=== PATIENT | male | born 1945 | race Hispanic/Latino ===

== ENCOUNTER 2020-04-27 21:28 | Inpatient (IN) | payer OTHER ==
[2020-04-27 22:54] LABS: Absolute Lymphocytes (CBC) 1.9 K/uL (0.7-4.9); Basophils % 1.1 % (0-1.3); MPV 9.4 fL (7.6-11.3); RBC Red Blood Cell Count 3.47 M/uL (4.33-5.43)
[2020-04-27 23:17] LABS: ALT/SGPT 15 U/L (12-78); AST/SGOT 30 U/L (15-37); Albumin 2.5 g/dL (3.4-5.0); Alkaline Phosphatase 67 U/L (45-117); BUN Blood Urea Nitrogen 32 mg/dL (7-18); Bicarbonate 19 mmol/L (21-32); Bilirubin Direct < 0.1 mg/dL (0-0.2); Bilirubin Total 0.5 mg/dL (0.2-1.0); Glucose Level 200 mg/dL (74-106); Lipase 181 U/L (73-393); Potassium 4.2 mmol/L (3.5-5.1); Protein, Total 6.5 g/dL (6.4-8.2); Sodium Level 137 mmol/L (136-145); Troponin (Emerg Dept Use Only) 0.24 ng/mL (0.0-0.045)
[2020-04-27] MEDS ORDERED: MAGNES/ALUMIN/SIMET 30ML UCUP ONE (23:55)
[2020-04-27] MEDS ORDERED: LIDOCAINE VISCOUS 2% SOLN 15 ML UDC ONE (23:55)
[2020-04-28] MEDS ORDERED: METOPROLOL TAR 50 MG TAB ONE (00:32)
--- NOTE | 2020-04-28 00:40 | EDPHYS ---
Physician Documentation [facility] Name: Roscoe Santana Age: 74 yrs Sex: Male : 1945 Arrival Date: 04/27/2020 Time: 21:36 Bed 16 Private MD: ED Physician Dinesh Goddard HPI: 04/27 22:32 This 74 yrs old Male presents to ER via Ambulatory with complaints of rn Abdominal Pain. 22:32 The patient presents with abdominal pain in the epigastric area. Onset: The rn symptoms/episode began/occurred today. The symptoms radiate to the left arm. Associated signs and symptoms: Pertinent negatives: nausea and vomiting, blood in stools, chest pain, constipation, diarrhea, dysuria, fever, hematuria, shortness of breath, vomiting, vomiting blood. The symptoms are described as dull. Modifying factors: The symptoms are alleviated by pepto bismol. the symptoms are aggravated by nothing. Severity of pain: At its worst the pain was mild in the emergency department the pain has improved. The patient has not experienced similar symptoms in the past. The patient has not recently seen a physician. Reports epigastric abd pain, assoc with increased burping, feels like gas, no fever/vomiting/chest pain/sob/diarrhea. Took pepto bismol with improvement. Feels bloated. . 04/28 00:27 The symptoms radiate to. rn Historical: - Allergies: 04/27 21:56 No Known Allergies; ca1 - PMHx: 21:53 Hypertension; ca1 - Immunization history:: Pneumococcal vaccine is not up to date, Flu vaccine is not up to date. - Social history:: Smoking status: Patient denies any tobacco usage or history of. - Family history:: not pertinent. - Hospitalizations: : No recent hospitalization is reported. ROS: 22:32 Constitutional: Negative for fever, chills, and weight loss, Eyes: Negative for injury, rn pain, redness, and discharge, Neck: Negative for injury, pain, and swelling, Cardiovascular: Negative for chest pain, palpitations, and edema, Respiratory: Negative for shortness of breath, cough, wheezing, and pleuritic chest pain, Abdomen/GI: + abd pain Back: Negative for injury and pain, : Negative for injury, bleeding, discharge, and swelling, MS/Extremity: Negative for injury and deformity, Skin: Negative for injury, rash, and discoloration, Neuro: Negative for headache, weakness, numbness, tingling, and seizure. Exam: 22:32 Constitutional: This is a well developed, well nourished patient who is awake, alert, rn and in no acute distress. Head/Face: Normocephalic, atraumatic. Eyes: Pupils equal round and reactive to light, extra-ocular motions intact. Lids and lashes normal. Conjunctiva and sclera are non-icteric and not injected. Cornea within normal limits. Periorbital areas with no swelling, redness, or edema. Cardiovascular: Regular rate and rhythm with a normal S1 and S2. No gallops, murmurs, or rubs. Normal PMI, no JVD. No pulse deficits. Respiratory: Lungs have equal breath sounds bilaterally, clear to auscultation and percussion. No rales, rhonchi or wheezes noted. No increased work of breathing, no retractions or nasal flaring. Abdomen/GI: soft, non-tender, no pulsatile mass Skin: Warm, dry MS/ Extremity: Pulses equal, no cyanosis. Neurovascular intact. Full, normal range of motion. Equal circumference. Neuro: Awake and alert, GCS 15, oriented to person, place, time, and situation. Cranial nerves II-XII grossly intact. Motor strength 5/5 in all extremities. Sensory grossly intact. Cerebellar exam normal. Normal gait. 23:36 ECG was reviewed by the Attending Physician. rn Vital Signs: 21:48 BP 196 / 103 RA; Pulse 101; Resp 16 S; Temp 97.8(TE); Pulse Ox 99% on R/A; Weight 74.39 ca1 kg (R); Height 5 ft. 8 in. (172.72 cm) (R); 21:53 BP 216 / 113 LA; ca1 22:45 BP 200 / 93; Pulse 89; Resp 20; Pulse Ox 97% on R/A; ll2 23:45 BP 217 / 102; Pulse 92; Resp 22; Pulse Ox 97% on R/A; ll2 01/06 00:45 BP 199 / 105; Pulse 113; Resp 24; Pulse Ox 97% on R/A; ll2 01:46 BP 176 / 90; Pulse 81; Resp 22; Pulse Ox 97% on R/A; ll2 02:45 BP 145 / 83; Pulse 69; Resp 19; Pulse Ox 98% on R/A; ll2 04/27 21:48 Body Mass Index 24.94 (74.39 kg, 172.72 cm) ca1 MDM: 04/27 22:17 Patient medically screened. rn 04/28 00:34 Differential diagnosis: acute coronary syndrome, coronary artery disease, gastritis, rn gastroesophageal reflux disease, non-specific abd pain, pancreatitis, Peptic Ulcer Disease. Data reviewed: vital signs, nurses notes, lab test result(s), EKG, radiologic studies, CT scan, plain films, and as a result, I will admit patient. Counseling: I had a detailed discussion with the patient and/or guardian regarding: the historical points, exam findings, and any diagnostic results supporting the discharge/admit diagnosis, lab results, radiology results, the need for further work-up and treatment in the hospital. Response to treatment: the patient's symptoms have mildly improved after treatment, and as a result, I will admit patient. Admission orders: after a detailed discussion of the patient's condition and case, the admit orders are written by me. ED course: Pt with pulmonary edema, acute kidney failure, elevated troponin, and ECG changes. Epigastric discomfort with radiation to left arm likely cardiac in nature, will admit to Dr. Goddard for further care, anticoagulate, and cardiology consultation. . 04/27 22:23 Order name: Basic Metabolic Panel; Complete Time: 23:17 rn 04/27 22:23 Order name: CBC with Diff; Complete Time: 23:17 rn 04/27 22:23 Order name: Hepatic Function; Complete Time: 23:17 rn 04/27 22:23 Order name: Lipase; Complete Time: 23:17 rn 04/27 22:23 Order name: Troponin (emerg Dept Use Only); Complete Time: 23:17 rn 04/27 23:30 Order name: Abdomen EDMS 04/28 00:06 Order name: XRAY Chest (1 view) rn 04/28 01:42 Order name: SARS-COV-2 RT PCR; Complete Time: 01:51 EDMI 04/27 22:23 Order name: IV Saline Lock; Complete Time: 01:11 rn 04/27 22:23 Order name: Labs collected and sent; Complete Time: 01:11 rn 04/27 22:23 Order name: EKG; Complete Time: 22:23 rn 04/27 22:23 Order name: EKG - Nurse/Tech; Complete Time: 01:04 rn EC/05 23:36 Rate is 95 beats/min. Rhythm is regular. QRS Chrisman is Normal. SD interval is shortened. rn QRS interval is normal. QT interval is normal. No Q waves. T waves are Normal. ST Segment is depressed in leads II, III, aVF, V4, V5, V6. Clinical impression: NSR w/ Non-specific ST/T Changes. Interpreted by me. Reviewed by me. Administered Medications: 22:25 Drug: GI Cocktail without - (Maalox Suspension 30 ml, Lidocaine Liquid 2 % 15 ll2 ml) Route: PO; 23:50 Follow up: Response: No adverse reaction ll2 04/28 00:00 Drug: Metoprolol TARTRATE (Lopressor) 50 mg Route: PO; ll2 01:04 Follow up: Response: No adverse reaction ll2 01:02 Drug: Lasix 20 mg Route: IVP; Site: left antecubital; ll2 02:00 Follow up: Response: No adverse reaction ll2 01:02 Drug: Aspirin Chewable Tablet 324 mg Route: PO; ll2 02:00 Follow up: Response: No adverse reaction ll2 01:03 Drug: Lovenox 1 mg/kg Route: Sub-Q; Site: left lower abdomen; ll2 02:00 Follow up: Response: No adverse reaction ll2 Disposition: 04/28/20 00:39 Hospitalization ordered by Damian Goddard for Inpatient Admission. Preliminary diagnosis are Pulmonary edema, Acute kidney failure, Non-ST elevation (NSTEMI) myocardial infarction. - Bed requested for Telemetry/MedSurg (Inpatient). - Status is Inpatient Admission. sg - Condition is Stable. - Problem is new. - Symptoms have improved. Signatures: Dispatcher [employer] EDMS Aurelia Orona RN RN mw Gay, Steven, RN RN Dinesh Goddard MD MD rn Attema, Lee, AMBER-C RUBBER STAMP MAKER-Cla1 Caitlyn Grant RN RN ca1 Lilly Tompkins RN RN ll2 Corrections: (The following items were deleted from the chart) 04/27 21:56 21:53 Allergies: Tylenol; ca1 ca1 23:30 22:23 Abdomen Pelvis W Con+CT.RAD.BRZ ordered. [facility] 04/28 00:27 04/27 22:32 Constitutional: Negative for fever, chills, and weight loss, Eyes: Negative rn for injury, pain, redness, and discharge, Neck: Negative for injury, pain, and swelling, Cardiovascular: Negative for chest pain, palpitations, and edema, Respiratory: Negative for shortness of breath, cough, wheezing, and pleuritic chest pain, Abdomen/GI: + abd pain Back: Negative for injury and pain, : Negative for injury, bleeding, discharge, and swelling, MS/Extremity: Negative for injury and deformity, Skin: Negative for injury, rash, and discoloration, Neuro: Negative for headache, weakness, numbness, tingling, and seizure, rn 04/28 00:28 04/27 22:32 The symptoms do not radiate. rn rn 04/28 00:33 04/27 23:32 CORONAVIRUS+MR.LAB.BRZ ordered. [facility] 04/28 02:21 00:39 Hospitalization Ordered by Damian Goddard MD for Inpatient Admission. Preliminary mw diagnosis is Pulmonary edema; Acute kidney failure; Non-ST elevation (NSTEMI) myocardial infarction. Bed requested for Telemetry/MedSurg (Inpatient). Status is Inpatient Admission. Condition is Stable. Problem is new. Symptoms have improved. rn 03:31 02:21 04/28/2020 00:39 Hospitalization Ordered by Damian Goddard MD for Inpatient sg Admission. Preliminary diagnosis is Pulmonary edema; Acute kidney failure; Non-ST elevation (NSTEMI) myocardial infarction. Bed requested for Telemetry/MedSurg (Inpatient). Status is Inpatient Admission. Condition is Stable. Problem is new. Symptoms have improved. mw
--- NOTE | 2020-04-28 00:40 | ER ---
Nurse's Notes [facility] Name: Roscoe Santana Age: 74 yrs Sex: Male : 1945 Arrival Date: 04/27/2020 Time: 21:36 Bed 16 Private MD: Diagnosis: Pulmonary edema;Acute kidney failure;Non-ST elevation (NSTEMI) myocardial infarction Presentation: 04/27 21:48 Chief complaint: Patient states: upper abdominal discomfort started today. Feels too ca1 much gas. Denies N/V/D. Coronavirus screen: Client denies travel out of the [place] in the last 14 days. At this time, the client does not indicate any symptoms associated with coronavirus-19. Ebola Screen: Patient negative for fever greater than or equal to 101.5 degrees Fahrenheit, and additional compatible Ebola Virus Disease symptoms Patient denies exposure to infectious person. Patient denies travel to an Ebola-affected area in the 21 days before illness onset. No symptoms or risks identified at this time. Initial Sepsis Screen: Does the patient meet any 2 criteria? No. Patient's initial sepsis screen is negative. Does the patient have a suspected source of infection? No. Patient's initial sepsis screen is negative. Risk Assessment: Do you want to hurt yourself or someone else? Patient reports no desire to harm self or others. Onset of symptoms was April 27, 2020. 21:48 Method Of Arrival: Ambulatory ca1 21:48 Acuity: RUBEN 2 ca1 Historical: - Allergies: 21:56 No Known Allergies; ca1 - PMHx: 21:53 Hypertension; ca1 - Immunization history:: Pneumococcal vaccine is not up to date, Flu vaccine is not up to date. - Social history:: Smoking status: Patient denies any tobacco usage or history of. - Family history:: not pertinent. - Hospitalizations: : No recent hospitalization is reported. Screenin:39 Abuse screen: Denies threats or abuse. Nutritional screening: No deficits noted. ll2 Tuberculosis screening: No symptoms or risk factors identified. Fall Risk None identified. Assessment: 22:39 General: Appears in no apparent distress. Behavior is calm, cooperative, appropriate ll2 for age. Pain: Denies pain. Neuro: Level of Consciousness is awake, alert, obeys commands, Oriented to person, place, time, situation. Cardiovascular: Patient's skin is warm and dry. Respiratory: Airway is patent Respiratory effort is even, unlabored, Respiratory pattern is regular, symmetrical. GI: Bowel sounds present X 4 quads. Abd is soft. : No signs and/or symptoms were reported regarding the genitourinary system. EENT: No signs and/or symptoms were reported regarding the EENT system. Derm: Skin is intact, is healthy with good turgor, Skin is pink, warm \T\ dry. Musculoskeletal: Circulation, motion, and sensation intact. Range of motion: intact in all extremities. 23:40 Reassessment: Patient and/or family updated on plan of care and expected duration. Pain ll2 level reassessed. Patient is alert, oriented x 3, equal unlabored respirations, skin warm/dry/pink. 04/28 00:45 Reassessment: Patient and/or family updated on plan of care and expected duration. Pain ll2 level reassessed. Patient is alert, oriented x 3, equal unlabored respirations, skin warm/dry/pink. 01:45 Reassessment: Patient and/or family updated on plan of care and expected duration. Pain ll2 level reassessed. Patient is alert, oriented x 3, equal unlabored respirations, skin warm/dry/pink. 02:35 Reassessment: Patient and/or family updated on plan of care and expected duration. Pain ll2 level reassessed. Patient is alert, oriented x 3, equal unlabored respirations, skin warm/dry/pink. attempted to call report, requested to have nurse call me back. 02:46 Reassessment: report given to RAJESH sanchez. ll2 Vital Signs: 04/27 21:48 BP 196 / 103 RA; Pulse 101; Resp 16 S; Temp 97.8(TE); Pulse Ox 99% on R/A; Weight 74.39 ca1 kg (R); Height 5 ft. 8 in. (172.72 cm) (R); 21:53 BP 216 / 113 LA; ca1 22:45 BP 200 / 93; Pulse 89; Resp 20; Pulse Ox 97% on R/A; ll2 23:45 BP 217 / 102; Pulse 92; Resp 22; Pulse Ox 97% on R/A; ll2 04/28 00:45 BP 199 / 105; Pulse 113; Resp 24; Pulse Ox 97% on R/A; ll2 01:46 BP 176 / 90; Pulse 81; Resp 22; Pulse Ox 97% on R/A; ll2 02:45 BP 145 / 83; Pulse 69; Resp 19; Pulse Ox 98% on R/A; ll2 04/27 21:48 Body Mass Index 24.94 (74.39 kg, 172.72 cm) ca1 ED Course: 04/27 21:36 Patient arrived in ED. cf2 21:52 Triage completed. ca1 21:54 Arm band placed on right wrist. ca1 22:17 Dinesh Goddard MD is Attending Physician. rn 22:27 Lilly Tompkins RN is Primary Nurse. ll2 22:39 Patient has correct armband on for positive identification. Bed in low position. Call ll2 light in reach. fish worm grower on. Pulse ox on. NIBP on. 22:39 No provider procedures requiring assistance completed. ll2 22:40 Inserted saline lock: 20 gauge in left forearm, using aseptic technique. ,using aseptic ll2 technique. by ritika. 04/28 00:13 Abdomen In Process Unspecified. EDMS 00:36 Damian Goddard MD is Hospitalizing Provider. rn 00:44 XRAY Chest (1 view) In Process Unspecified. EDMS 03:31 Patient admitted, IV remains in place. ll2 Administered Medications: 04/27 22:25 Drug: GI Cocktail without - (Maalox Suspension 30 ml, Lidocaine Liquid 2 % 15 ll2 ml) Route: PO; 23:50 Follow up: Response: No adverse reaction ll2 04/28 00:00 Drug: Metoprolol TARTRATE (Lopressor) 50 mg Route: PO; ll2 01:04 Follow up: Response: No adverse reaction ll2 01:02 Drug: Lasix 20 mg Route: IVP; Site: left antecubital; ll2 02:00 Follow up: Response: No adverse reaction ll2 01:02 Drug: Aspirin Chewable Tablet 324 mg Route: PO; ll2 02:00 Follow up: Response: No adverse reaction ll2 01:03 Drug: Lovenox 1 mg/kg Route: Sub-Q; Site: left lower abdomen; ll2 02:00 Follow up: Response: No adverse reaction ll2 Outcome: 00:39 Decision to Hospitalize by Provider. rn 03:31 Patient left the ED. sg 03:34 Admitted to Med/surg accompanied by nurse, via wheelchair, Report called to RAJESH hernandez ll2 03:34 Condition: stable 03:34 Instructed on the need for admit. Signatures: Dispatcher [employer] EDMS Rene Dhillon, RN RN sg Dinesh Goddard MD MD rn Acob, Cheryl, RN RN ca1 Humphrey Brewster 2 Lilly Tompkins RN RN ll2 Corrections: (The following items were deleted from the chart) 04/27 21:56 21:53 Allergies: Tylenol; ca1 ca1 04/28 01:03 01:03 Lovenox 1 mg/kg Sub-Q in left lower abdomen ll2 ll2
[2020-04-28] MEDS ORDERED: ASPIRIN 81 MG CHEWABLE TABLET ONE (01:04)
[2020-04-28] MEDS ORDERED: FUROSEMIDE 20 MG/ 2ML VIAL ONE (01:04)
[2020-04-28] MEDS ORDERED: ENOXAPARIN 80 MG/0.8 ML SQ ONE (01:04)
--- NOTE | 2020-04-28 02:33 | P.HP ---
Certification for Inpatient Patient admitted to: Inpatient With expected LOS: >2 Midnights Patient will require the following post-hospital care: None Practitioner: I am a practitioner with admitting privileges, knowledge of patient current condition, hospital course, and medical plan of care. Services: Services provided to patient in accordance with Admission requirements found in Title 42 Section 412.3 of the Code of Federal Regulations <Anthony Richardson - Last Filed: 04/28/20 02:28> Patient History Date of Service: 04/28/20 Primary Care Provider: none Reason for admission: Acute renal failure History of Present Illness: 74-year-old male, primarily Norwegian-speaking presented to the emergency department for shortness of breath on exertion. Patient reported a history of hypertension for which she has not been taking medications for the last couple of years. Patient is also reporting some abdominal bloating and pain. Patient was evaluated in the emergency department, found to be in acute renal failure creatinine 4.14 GFR 14 BUN 32, glucose elevated to 200 patient denies use of NSAIDs, recent antibiotic or exposure to IV contrast. EKG with some depressions in the inferior lateral leads initial troponin 0.24. Patient was given a full dose Lovenox in the emergency department as well as metoprolol and Lasix. Patient chest x-ray shows some pulmonary edema, bibasilar crackles noted on exam. Patient does still make urine, was given dose of Lasix in the emergency department. ED provider wishes to admit patient for further evaluation and management. When I saw the patient in the ER he was awake, alert, oriented x3. We are able to communicate well with the dispensary attendant line. Patient in no respiratory distress, patient is hypertensive but no longer experiencing any of the pain that he presented for. Patient made aware that his kidneys are failing and he likely has some heart failure component, wishes are for full code and would accept dialysis if needed. - Past Medical/Surgical History -: Hypertension -: Appendectomy Psychosocial/ Personal History: Patient lives with family - Family History Family History: Reviewed- Non-Contributory - Social History Smoking Status: Never smoker Alcohol use: No CD- Drugs: No Caffeine use: No Place of Residence: Home <Anthony Richardson - Last Filed: 04/28/20 02:28> Date of Service: 04/28/20 <Damian Goddard - Last Filed: 04/28/20 18:24> Allergies No Known Allergies Allergy (Verified 04/28/20 03:43) Home Medications: NK [No Home Meds] 04/28/20 Review of Systems 10-point ROS is otherwise unremarkable Respiratory: SOB with Excertion Gastrointestinal: Abdominal Pain <Anthony Richardson - Last Filed: 04/28/20 02:28> Physical Examination - Physical Exam General: Alert, In no apparent distress HEENT: Atraumatic, PERRLA, Mucous membr. moist/pink Neck: Supple, 2+ carotid pulse no bruit, No LAD Respiratory: Normal air movement, Crackles/rales Cardiovascular: Regular rate/rhythm, Normal S1 S2, Systolic murmur Gastrointestinal: Normal bowel sounds, No tenderness Musculoskeletal: No tenderness Integumentary: No rashes Neurological: Normal speech, Normal strength at 5/5 x4 extr, Normal tone - Studies Laboratory Data (last 24 hrs) 04/27/20 22:45: WBC 13.6 H, Hgb 9.7 L, Hct 30.0 L, Plt Count 260 04/27/20 22:45: Sodium 137, Potassium 4.2, BUN 32 H, Creatinine 4.14 H, Glucose 200 H, Total Bilirubin 0.5, AST 30, ALT 15, Alkaline Phosphatase 67, Lipase 181 <Anthony Richardson - Last Filed: 04/28/20 02:28> - Studies Laboratory Data (last 24 hrs) 04/27/20 22:45: WBC 13.6 H, Hgb 9.7 L, Hct 30.0 L, Plt Count 260 04/27/20 22:45: Sodium 137, Potassium 4.2, BUN 32 H, Creatinine 4.14 H, Glucose 200 H, Total Bilirubin 0.5, AST 30, ALT 15, Alkaline Phosphatase 67, Lipase 181 <Damian Goddard - Last Filed: 04/28/20 18:24> Assessment and Plan - Plan Assessment NSTEMI Acute renal failure Hypertension Hyperglycemia-suspect underlying diabetes mellitus type 2 Plan NSTEMI: Patient with ST depressions in the inferior lateral leads, initial troponin 0.2, will trend troponins. Patient given full dose Lovenox in the em ergency department. Cardiology consult in place, monitor on telemetry. Echocardiogram ordered, patient does have new systolic murmur heard best over the apex of the heart. Acute renal failure: Unknown etiology, likely related to long-standing hypertension and suspected diabetes. Patient denies any exposure to NSAIDs, contrast, antibiotics. Nephrology consult in place. Patient still makes urine and was given some Lasix for volume overload. CPK, uric acid, renal ultrasound ordered. Appreciate further input from nephrology. Hypertension: Patient started on metoprolol, given IV Lasix and p.r.n. hydralazine. Further management with help with nephrology. Hyperglycemia-suspect underlying diabetes mellitus type 2: A1c with morning labs, a.c. HS Accu-Cheks, sliding scale insulin therapy. Discharge Plan: Home Plan to discharge in: Greater than 2 days - Advance Directives Does patient have a Living Will: No Does patient have a Durable POA for Healthcare: No - Code Status/Comfort Care Code Status Assessed: Yes (Full code) Critical Care: No Time Spent Managing Pts Care (In Minutes): 55 <Anthony Richardson - Last Filed: 04/28/20 02:28> - Plan Plan of care reviewed with Anthony Richardson, and I agree with the management plan as noted above. troponin rising this morning, patient denies chest pain. Cardiology consulted, echo ordered, continue to trend troponin. Nephrology consulted for assistance with acute renal failure. <Damian Goddard - Last Filed: 04/28/20 18:24>
[2020-04-28] MEDS ORDERED: ACETAMINOPHEN 500 MG TAB PO PRN (03:38)
[2020-04-28] MEDS ORDERED: ONDANSETRON 4 MG/2 ML VIAL IV PRN (03:38)
[2020-04-28 03:39] VITALS: BMI 25.4
[2020-04-28 04:30] LABS: Absolute Lymphocytes (CBC) 2.4 K/uL (0.7-4.9); Basophils % 1.4 % (0-1.3); Hematocrit 29.4 % (39.6-49.0); Lymphocytes % 17.9 % (15.3-44.8); MPV 9.5 fL (7.6-11.3); RBC Red Blood Cell Count 3.46 M/uL (4.33-5.43)
[2020-04-28 04:49] LABS: Albumin 2.7 g/dL (3.4-5.0); Bilirubin Total 0.6 mg/dL (0.2-1.0); Magnesium 2.4 mg/dL (1.8-2.4); Potassium 4.6 mmol/L (3.5-5.1); Protein, Total 6.9 g/dL (6.4-8.2); Thyroid Stimulating Hormone 2.54 uIU/mL (0.360-3.740); Uric Acid 7.4 mg/dL (3.5-7.2)
[2020-04-28 04:57] LABS: Troponin I 1.36 ng/mL (0.0-0.045)
[2020-04-28 05:02] LABS: Urine Appearance CLEAR; Urine Bilirubin NEGATIVE (NEG); Urine Blood TRACE (NEG); Urine Color YELLOW; Urine Glucose TRACE (NEG); Urine Microscopic Reflex ORDER UMIC; Urine Protein 3+ (NEG); Urine Urobilinogen 0.2 mg/dL (0.2-1.0); Urine pH 5.5 (5.0-7.0)
[2020-04-28 05:12] LABS: Urine Bacteria 20-50 /HPF (NONE SEEN); Urine Coarse Granular Casts 0-5 /LPF (NONE SEEN); Urine RBC <5 /HPF (NONE SEEN); Urine Urothelial Cells <5 /HPF (NONE SEEN)
[2020-04-28] MEDS: HYDRALAZINE HCL 20 MG/ML VIAL IV PRN ×2 (06:23→12:33)
[2020-04-28] MEDS ORDERED: INFLUENZA VACCINE (for 3y+) 0.5 ML DOSE IMVAC ONE (08:00)
[2020-04-28] MEDS ORDERED: PNEUMOCOCCAL VACCINE 0.5 ML IMVAC ONE (08:00)
--- NOTE | 2020-04-28 08:34 | RAD REPORT ---
EXAM DESCRIPTION: US - Renal Ultrasound-Complete - 04/28/2020 7:24 am CLINICAL HISTORY: ARF COMPARISON: Abdomen Pelvis Wo Contrast dated 04/27/2020 FINDINGS: The right kidney measures 9.6 x 5.4 x 4.7 cm. The left kidney measures 9.5 x 5.2 x 4.1 ce ntimeter. Cortical thickness is normal. Increased cortical echogenicity is present, nonspecific, but probably underlying medical renal disease. No suspicious renal parenchymal mass. An 8 mm right renal cyst is identified. No hydronephrosis of either kidney. Partially filled urinary bladder shows no gross abnormality. IMPRESSION: No hydronephrosis or suspicious renal mass. Underlying medical renal disease is evident.
[2020-04-28] MEDS: ASPIRIN EC 81 MG TAB PO SCH (09:45)
[2020-04-28] MEDS: METOPROLOL TAR 50 MG TAB PO SCH ×2 (09:45→21:18)
[2020-04-28] MEDS: FUROSEMIDE 40 MG/4 ML VIAL IV SCH ×2 (09:45→18:05)
[2020-04-28] MEDS: INSULIN -REGULAR HUMAN 50 UNIT/0.5 ML ML SQ SCH ×4 (09:46→21:18)
--- NOTE | 2020-04-28 11:03 | RAD REPORT ---
EXAM DESCRIPTION: RAD - Chest Single View - 04/28/2020 12:44 am CLINICAL HISTORY: Pulmonary edema COMPARISON: None. FINDINGS: Single frontal radiograph view of the chest. Cardiomediastinal silhouette: Cardiomegaly. Atherosclerotic calcification of the thoracic aorta. Lungs: Bilateral interstitial opacities. Bilateral pleural effusions. No pneumothorax. Bones: Degenerative change of the spine. Upper abdomen: No abnormality identified. IMPRESSION: 1. Cardiomegaly with interstitial pulmonary edema pattern and bilateral pleural effusion s. Electronically signed by: Juan Carlos Cannon 04/28/2020 12:58 AM FRINGE MAKER Due to temporary technical issues with the PACS/Fluency reporting system, reports are being signed by the in house radiologist without review as a courtesy to ensure prompt reporting. The interpreting r adiologist is fully responsible for the content of the report.
--- NOTE | 2020-04-28 11:06 | RAD REPORT ---
EXAM DESCRIPTION: CT - Abdomen Pelvis Wo Contrast - 04/28/2020 6:35 am CLINICAL HISTORY: EPIGASTRIC PAIN COMPARISON: None Available. TECHNIQUE: CT of the abdomen and pelvis without IV contrast. Evaluation of the solid organs and vasc ulature is suboptimal due to lack of IV contrast. Motion artifact. FINDINGS: Lung Bases: Cardiomegaly. Small pericardial effusion. Moderate bilateral pleural effusions . Bibasilar compressive atelectasis. Coronary artery atherosclerosis. Bones: Multilevel degenerative change of the visualized spine. Abdomen: Liver: The liver has normal size and density. Gallbladder: No calcified gallstones. Spleen, Pancreas, and Adrenal Glands: The spleen, pancreas, and adrenal glands are unremarkable. Kidneys: The kidneys have normal size without evidence of hydronephrosis. No obstructing ureteral anay culi. Vasculature: Aortoiliac atherosclerosis. IVC is unremarkable. Stomach: The stomach and duodenum have normal course. Other: No free intraperitoneal air. No free fluid or lymphadenopathy. Pelvis: Bladder: Urinary bladder is unremarkable. Bowel: No dilated loops of large or small bowel. Appendix: Normal appendix. Pelvis: Enlarged prostate. IMPRESSION: 1. No acute inflammatory or obstructive process identified in the abdomen/pelvis. 2. Cardiomegaly with moderate bilateral pleural effusions and bibasilar compressive atelectasis. Smal l pericardial effusion. This exam was performed according to our departmental dose-optimization program, which includes autom ated exposure control, adjustment of the mA and/or kV according to patient size and/or use of iterati ve reconstruction technique. Electronically signed by: Juan Carlos Cannon 04/28/2020 12:36 AM BRICK GRADER Due to temporary technical issues with the PACS/Fluency reporting system, reports are being signed by the in house radiologist without review as a courtesy to ensure prompt reporting. The interpreting r adiologist is fully responsible for the content of the report.
--- NOTE | 2020-04-28 17:32 | EKG ---
Test Date: 2020-04-27 Test Time: 23:27:59 Boat Captain: JOSTIN MEASUREMENT RESULTS: Intervals: Rate: 95 NJ: 88 QRSD: 120 QT: 390 QTc: 490 [place]: P: 45 NJ: 88 QRS: 59 T: -34 INTERPRETIVE STATEMENTS: Sinus rhythm with short NJ Anterior infarct, age undetermined Marked ST abnormality, possible inferior subendocardial injury Abnormal ECG No previous ECG available for comparison Electronically Signed On 04-28-20 17:31:39 [employer] by Dusty Glover
[2020-04-28 20:15] LABS: Urine Protein/Creatinine Ratio 5.24 ratio (<0.15)
[2020-04-28 20:25] LABS: Urine Appearance CLEAR; Urine Bilirubin NEGATIVE (NEG); Urine Blood NEGATIVE (NEG); Urine Color YELLOW; Urine Glucose NEGATIVE (NEG); Urine Microscopic Reflex ORDER UMIC; Urine Protein 3+ (NEG)
[2020-04-28 20:59] LABS: Urine Bacteria <20 /HPF (NONE SEEN); Urine Coarse Granular Casts 0-5 /LPF (NONE SEEN); Urine RBC <5 /HPF (NONE SEEN); Urine Urothelial Cells <5 /HPF (NONE SEEN)
[2020-04-28] MEDS: ATORVASTATIN 40 MG TAB PO SCH (21:18)
--- NOTE | 2020-04-28 23:35 | CON ---
Date of Consultation: 04/28/2020 Reason For Consultation: Elevated BUN and creatinine, fluid management. History Of Present Illness: All the information has been obtained with the help of the stencil cutter. This is a pleasant 74-year-old [place] gentleman with significant past medical history of hypertension diagnosed more than 10 years ago. The patient off blood pressure medication for the last 2 years. There is no documentation of diabetes but patient denied having any diabetes and denied any treatment before and his hemoglobin A1c this time is 6.1. According to the patient, the patient's last blood test was more than 10 years ago. At that time everything was normal. There is foggy information about having some blood tests 2 years ago and also that did not clear of any kidney disease. The patient came to the hospital complaining of fatigue, feeling weak and some dizziness with unspecific chest pain. Found to have elevation in BUN and creatinine with GFR down to 14. For that reason, we have been consulted. According to the patient, the patient had been taking Ibuprofen daily basis in the last 2 to 3 years. The patient denied any IV contrast. Primary troponin was marginally elevated. The patient had chest tightness that has shortness of breath. Past Medical History: Includes, 1. Hypertension. 2. Hyperlipidemia. 3. Questionable diabetes. Family History: Positive for hypertension. Social History: The patient denied smoking. Denied drinking. Denied drugs abuse. Family History: Positive for hypertension. Home Medications: Negative. Review of Systems: Head and Neck: No red eye. No ear pain. GI: No nausea. No vomiting. : No polyuria. No dysuria. No hematuria. Brief Writer: Not applicable. Respiratory: Has shortness of breath Cardiovascular: Has chest tightness. Endocrine: No polydipsia. Skin: No rash. Neuro: No weakness. Musculoskeletal: Generalized fatigue. Physical Examination: Vital Signs: When I saw the patient, blood pressure 167/71, pulse of 65, afebrile. The patient still has good urine output of 500. Chest: Crackles at bilateral base. Heart: S1, S2. Systolic murmur. Abdomen: Soft, nontender. Extremities: Trace edema. Neurologic: Alert and oriented x3. No tremor. Laboratory Data: Sodium 139, potassium 4.6, bicarb 22, BUN 33, creatinine 4.1, uric acid 7.4, calcium 8.5. Troponin is 0.23. Albumin 2.7. TSH 2.5. Urinalysis, specific gravity 1.010. PC ratio 5.2. COVID negative. Current Medications: In the hospital include, 1. Aspirin. 2. Lovenox. 3. Amlodipine. 4. Hydralazine. 5. Metoprolol 50 b.i.d. 6. Lasix. Assessment And Plan: 1. Acute kidney injury and known baseline. The patient reconfirmed that he had never been aware of any kidney disease even though there is no frequent blood test or recent blood test. 2. With nephrotic range protein urea and normal hemoglobin A1c and anemia, light chain disease needs to be ruled out and other autoimmune disease needs to be ruled out. I am going to go ahead and get renal ultrasound to evaluate the chronicity of the disease, and we will send for full serology and serum protein electrophoresis. We will follow up the patient closely. I had long discussion with the patient with the help of a stencil cutter that if kidney function continue to decline, the patient may need renal replacement therapy. 3. I agree with the current dose of Lasix as the patient is on room air and still has good urine output. 4. Hypertension, controlled, optimal with the presence of the congestive heart failure. Continue utilizing the blood pressure for more diuresis. 5. Anemia secondary to chronic kidney disease with the presence of acute kidney injury. We will send for serum protein electrophoresis. 6. Non-ST elevation myocardial infarction. We will follow up cardiology evaluation. I agree with current dose of Lovenox. 7. Questionable of diabetes, currently controlled. 8. 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 We will send for full autoimmune disease and serum protein electrophoresis and we will follow up. Time spent discussing with the patient, [id number], using the translation, discussing with the staff and placing an order, discussing with over subspecialty and hospitalist 75 minutes. MICHAEL Voice ID: [id number] Report ID: [id number] VAMSI
[2020-04-29 04:25] LABS: Absolute Lymphocytes (CBC) 2.8 K/uL (0.7-4.9); Basophils % 1.4 % (0-1.3); Hematocrit 28.2 % (39.6-49.0); Lymphocytes % 28.8 % (15.3-44.8); MPV 9.8 fL (7.6-11.3); RBC Red Blood Cell Count 3.27 M/uL (4.33-5.43)
[2020-04-29 05:44] LABS: Albumin 2.4 g/dL (3.4-5.0); Bilirubin Total 0.7 mg/dL (0.2-1.0); Ferritin 25.4 ng/mL (26-388); Folic Acid, (Folate) 10.1 ng/mL (3.1-17.5); Phosphorus 4.8 mg/dL (2.5-4.9); Potassium 3.6 mmol/L (3.5-5.1); Protein, Total 6.2 g/dL (6.4-8.2); Thyroid Stimulating Hormone 1.88 uIU/mL (0.360-3.740); Uric Acid 8.8 mg/dL (3.5-7.2)
[2020-04-29 05:45] LABS: Troponin I 6.08 ng/mL (0.0-0.045)
[2020-04-29] MEDS: METOPROLOL TAR 50 MG TAB PO SCH ×2 (08:51→20:21)
[2020-04-29] MEDS: ASPIRIN EC 81 MG TAB PO SCH (08:51)
--- NOTE | 2020-04-29 08:52 | ECHO ---
HEIGHT: 5 ft 8 in WEIGHT: 162 lb 1.6 oz DATE OF STUDY: 04/28/[address]: 2-DIMENSIONAL: YES M.MODE: YES DOPPLER: YES COLOR FLOW: YES TDS: PORTABLE: DEFINITY: BUBBLE STUDY: DIAGNOSIS: PULMONARY EDEMA CARDIAC HISTORY: CATHERIZATION: SURGERY: PROSTHETIC VALVE: PACEMAKER: MEASUREMENTS (cm) DIASTOLIC (NORMALS) SYSTOLIC (NORMALS) IVSd 1.1 (0.6-1.2) LA Diam 4.5 (1.9-4.0) LVEF 57% LVIDd 5.4 (3.5-5.7) LVIDs 3.8 (2.0-3.5) %FS 30% LVPWd 1.1 (0.6-1.2) Ao Diam 3.0 (2.0-3.7) 2 DIMENSIONAL ASSESSMENT: RIGHT ATRIUM: NORMAL LEFT ATRIUM: DILATED RIGHT VENTRICLE: NORMAL LEFT VENTRICLE: NORMAL TRICUSPID VALVE: NORMAL MITRAL VALVE: NORMAL PULMONIC VALVE: NORMAL AORTIC VALVE: NORMAL PERICARDIAL EFFUSION: SMALL AORTIC ROOT: NORMAL LEFT VENTRICULAR WALL MOTION: NORMAL DOPPLER/COLOR FLOW: NORMAL COMMENTS: SMALL PERICARDIAL EFFUSION. NORMAL LEFT VENTRICULAR SIZE AND FUNCTION. NO WALL MOTION ABNORMALITY. TECHNOLOGIST: JONAS LY
[2020-04-29] MEDS: FUROSEMIDE 40 MG/4 ML VIAL IV SCH (08:54)
[2020-04-29] MEDS: INSULIN -REGULAR HUMAN 50 UNIT/0.5 ML ML SQ SCH ×4 (08:55→21:00)
[2020-04-29] MEDS ORDERED: AMLODIPINE 5 MG TAB PO SCH (09:00)
[2020-04-29] MEDS ORDERED: CALCITROL 0.25 MCG CAP PO SCH (10:00)
[2020-04-29] MEDS ORDERED: SOD FERRIC GLUC COMPLX/SUCROSE 250 MG in NA CHLORIDE 0.9% 250 ML IV SCH (11:00)
--- NOTE | 2020-04-29 13:06 | PN ---
Date of Progress Note: 04/29/2020 Subjective: The patient was admitted with acute kidney injury, [id number] MN. The patient does not have any documentation of diabetes yet. His workup show nephrotic range of proteinuria, only has hypertension. Does not have any documentation of any previous kidney disease. Physical Examination: Vital Signs: When I saw the patient, blood pressure 179/77, pulse of 55, afebrile. The patient had good urine output of 1000. Chest: Clear to auscultation. Heart: S1, S2 regular. Abdomen: Soft, nontender. Extremities: No edema. Neurologic: Alert, oriented x3. No focal. No tremor. Laboratory Data: WBC 9.6, H and H 9.1/28.2, platelets 280. Sodium 140, potassium 3.6, bicarb 23, BUN 39, creatinine 4.2, GFR of 14, uric acid 8.8, calcium 8.3, phos 4.8, iron saturation 5, ferritin 25. Troponin of 6. Serum protein electrophoresis is still pending. PTH 230. PC ratio 5. Serology still pending. Current Medications: The patient on include: 1. Aspirin. 2. IV iron. 3. Amlodipine 5 mg daily. 4. Atorvastatin. 5. Metoprolol 50. 6. Lasix 40 b.i.d. IV. 7. Zofran. 8. Calcitriol. Assessment And Plan: 1. Acute kidney injury, nephrotic range of proteinuria, normal size kidney. Given the presence of anemia and given no history before, the patient will need workup including serology and kidney biopsy. Unfortunately, with the presence of [id number] myocardial infarction, the patient is not going to be candidate on holding any anticoagulation including aspirin or heparin for the time being. The patient is going to need kidney biopsy as outpatient after stabilizing the cardiac tissue. I had long discussion with the patient that if the patient is going to need cardiac cath, the patient may have worsening kidney function, but it takes a priority. The patient verbalized understanding. 2. Iron deficiency anemia. Continue IV iron. 3. Hypertension, not controlled. Increase amlodipine 10 mg, increase hydralazine 25 t.i.d. 4. Congestive heart failure secondary to [id number] myocardial infarction. I am going to switch the patient to oral Lasix. 5. [id number]-FG-[id number] myocardial infarction. We will monitor the patient. 6. The patient cleared from the renal standpoint for discharge planning to follow up in the office in 2 weeks for evaluation of the kidney biopsy. Time spent discussing with the patient, [id number], using the translation, discussing with the staff and placing an order, discussing with over subspecialty and hospitalist 45 minutes. MICHAEL Voice ID: [id number] Report ID: [id number] VAMSI
[2020-04-29] MEDS: HYDRALAZINE HCL 25 MG TABLET PO SCH ×2 (13:14→20:22)
[2020-04-29] MEDS: FUROSEMIDE 40 MG TABLET PO SCH (16:58)
[2020-04-29] MEDS: HYDRALAZINE HCL 20 MG/ML VIAL IV PRN (16:59)
--- NOTE | 2020-04-29 17:55 | P.PN ---
Subjective Date of Service: 04/29/20 Primary Care Provider: none Chief Complaint: Acute renal failure Subjective: No new changes (patient feeling well, denies chest pain, reports last had upper abdominal / "chest pain" in ED. without complaints) Review of Systems 10-point ROS is otherwise unremarkable Physical Examination - Vital Signs Temperature: 97.0 F Blood Pressure: 179/81 Pulse: 56 Respirations: 18 Pulse Ox (%): 98 - Physical Exam General: Alert, In no apparent distress HEENT: Sclerae nonicteric Respiratory: Clear to auscultation bilaterally Cardiovascular: No edema, Regular rate/rhythm Gastrointestinal: Soft and benign, No tenderness Musculoskeletal: No tenderness Integumentary: No rashes Neurological: Normal speech Assessment & Plan Physician Review Additional Text: NSTEMI Acute renal failure Hypertension Hyperglycemia-suspect underlying diabetes mellitus type 2 Plan NSTEMI: Patient with ST depressions in the inferior lateral leads, troponin up to 6 yesterday. On lovenox Cardiology consulted, discussed possible cath, however reluctant given pt's renal function discussed at length with patient, will get stress test tomorrow. If abnormal, would likely then undergo cardiac cath. Acute renal failure: Nephrotic range proteinuria, now reporting NSAID usage, possible chronic uncontrolled HTN. nephrology consulted. multiple labs pending Hypertension: on multiple medications, will adjust as needed Hyperglycemia-suspect underlying diabetes mellitus type 2: A1c: 6.1 Dispo: possible dc home tomorrow if stress test negative. to f/u with nephrology in ~2 weeks Time Spent Managing Pts Care (In Minutes): 45
[2020-04-29] MEDS: ATORVASTATIN 40 MG TAB PO SCH (20:22)
[2020-04-29] MEDS ORDERED: ENOXAPARIN 80 MG/0.8 ML SQ SCH (21:00)
[2020-04-29 22:37] LABS: Rheumatoid Factor NEG (NEG)
[2020-04-30 02:26] VITALS: O2SAT 96
[2020-04-30 06:02] LABS: Absolute Lymphocytes (CBC) 3.3 K/uL (0.7-4.9); Basophils % 1.1 % (0-1.3); Hematocrit 28.9 % (39.6-49.0); Lymphocytes % 29.1 % (15.3-44.8); MPV 10.2 fL (7.6-11.3); RBC Red Blood Cell Count 3.33 M/uL (4.33-5.43)
[2020-04-30 06:11] LABS: Albumin 2.4 g/dL (3.4-5.0); Phosphorus 4.3 mg/dL (2.5-4.9); Potassium 3.5 mmol/L (3.5-5.1)
[2020-04-30] MEDS: INSULIN -REGULAR HUMAN 50 UNIT/0.5 ML ML SQ SCH ×2 (07:30→11:30)
[2020-04-30] MEDS: HYDRALAZINE HCL 25 MG TABLET PO SCH (08:18)
[2020-04-30] MEDS: FUROSEMIDE 40 MG TABLET PO SCH (08:18)
[2020-04-30] MEDS: ASPIRIN EC 81 MG TAB PO SCH (08:18)
[2020-04-30] MEDS ORDERED: REGADENOSON 0.4 MG/5 ML SYR IV ONE (08:29)
[2020-04-30] MEDS ORDERED: AMLODIPINE 10 MG TAB PO SCH (09:00)
--- NOTE | 2020-04-30 10:18 | RAD REPORT ---
EXAM DESCRIPTION: NM - Rest Stress Cardiac Imaging - 04/30/2020 9:59 am CLINICAL HISTORY: CP Chest pain. COMPARISON: No comparisons TECHNIQUE: The patient was administered approximately 10mCi of Tc 99m Sestamibi prior to resting SPE CT imaging of the heart. The patient was then administered approximately 30 mCi of Tc 99m Sestamibi f ollowing exercise or pharmacologic stress. Multiplanar SPECT images were reviewed. FINDINGS: Mild degree of stress-induced ischemia suspected involving the septal wall near the cardia c apex. No fixed defect is seen to suggest hibernating myocardium or scarred myocardium. The end diastolic volume is 128 ml, the end systolic volume is 72 ml, and the ejection fraction is 44 %. IMPRESSION: Mild stress-induced ischemia involving the septal wall near the cardiac apex.
[2020-04-30 10:45] VITALS: TEMP 97.8
--- NOTE | 2020-04-30 12:45 | P.PN ---
Subjective Date of Service: 04/30/20 Primary Care Provider: none Chief Complaint: Acute renal failure Subjective Pt with unclear PMHX , presented with Chest pain, Cr 4.0 , no available old records no hydronephrosis on U , cr remained stable , W/U sent today no new complainbts S?p stress test Cr stable will increase hydralazine can be discharged from nephrology point of view F/U with nephrology clinic in 2wks Physical exam general: AAOX3, NAD , Neck; Supple, No elevated JVD hear: RRR, normal S1,2 no murmur or rub Chest: CTAB, no rlaes or wheezes Abdomen: Soft , Nt Extremities No edema or ulcer A/P ALEJANDRA vs CKD V unknwon baseline cr Cr stable Nephrotic shi proteinuria , no need for urgent renal replacement therapy at this time , pt if cr cont to decline then pt will need to initiate renal replacement therapy F/U serology W/U Abenia of chronic disease H/H stable NSTEMI S/P stress test F with cardiology HTNB BP elevated today will increase hydralazine toatl time spent 40min Physical Examination - Vital Signs Temperature: 97.8 F Blood Pressure: 188/79 Pulse: 45 Respirations: 18 Pulse Ox (%): 97
[2020-04-30] MEDS: METOPROLOL TAR 50 MG TAB PO SCH (12:51)
[2020-04-30] MEDS ORDERED: HYDRALAZINE HCL 25 MG TABLET PO SCH (14:00)
--- NOTE | 2020-04-30 14:05 | CON ---
Admitted on 04/28/[address] Goddard with acute renal failure and atypical chest pain as well as eleva laci troponin. Reason For Consultation: Elevated troponin. History Of Present Illness: The patient is a 74-year-old male. I saw him on 04/28/19 21. He only has a past medical history of hypertension, came in with diffuse abdominal pain. No patricio sea, vomiting, diaphoresis, PND, orthopnea, pedal edema, palpitation, syncope, fever, or chills. He was very hypertensive when he came in at 216/113. He was not aware of his blood pressure being so el evated. As far as we know, he is not taking any medications at home. Allergies: NONE. Review of Systems: Negative. Social History: Negative. Family History: Negative. Physical Examination: Vital signs: He was extremely hypertensive at 216/113. His pulse was 89. He is in sinus rhythm. B reathing with a rate of 20. His O2 saturation was 97% on room air. HEENT: Negative. Neck: Supple with no bruit. Chest: Clear. Cardiac: Revealed a regular rhythm and rate with S4 gallops. No murmurs or rubs. Abdomen: Benign. Extremities: Revealed no clubbing, cyanosis, or edema. Diagnostic Data: EKG showed LVH. Chest x-ray is negative. Hemoglobin was 9.1. His glucose was 156 . His potassium was 3.5, creatinine was 4.22 with a GFR of 14. His troponin was 6.39. Impression And Plan: 1.Acute renal failure secondary to hypertension that is malignant hypertension. 2.Anemia secondary to renal failure. 3.Elevated troponin most likely secondary to renal failure. The patient's symptoms were definitely noncardiac in nature. He was having some diffuse abdominal pain, no chest pain. I think the patient also has new onset diabetes as well. I agree with his present regimen including amlodipine, aspirin , Lipitor. I would keep him on Lovenox. I think he should be on Lasix. I agree with hydralazine, i nsulin, and metoprolol. He should have Nephrology consultation echocardiogram, probably a stress alison t and we will see what happens later. The patient is at very high risk for heart catheterization or coronary intervention at this point. If he does have a heart catheterization, he should be very awar e that he will for sure going to renal failure and end up on dialysis. The case was discussed with N ephrology, Dr. Goddard. Dr. Goddard informed the family in details that we would prefer a noninvasive th erapy for now. We will plan medical regimen with aspirin, statin, beta blockers, get a stress test f irst and then decide, but even if the stress test was positive, I would prefer we do a catheterizatio n only if he actually have chest pain, which he has never had. I will sign off his case. I will see the patient as an outpatient. The patient's case was discussed in detail with Dr. Goddard. ANGIE/SAGE Voice ID: [id number] Report ID: [id number]
[2020-04-30 14:19] VITALS: BP 139/66
--- NOTE | 2020-04-30 20:36 | P.DS ---
Admission Date: 04/28/20 Discharge Date: 04/30/20 Primary Care Provider: none Disposition: ROUTINE DISCHARGE Discharge Condition: FAIR Reason for Admission: NSTEMI, ARF vs CKDV Consultations: Nephrology - Dr. Gunderson Cardiology - Dr. Glover Procedures: CT Abd/Pel (04/27): No acute inflammatory or obstructive process identified in the abd/pelvis. Cardiomegaly with moderate bilateral pleural effusions and bibasilar compressive atelectasis. Small pericardial effusion. CXR (04/28): Cardiomegaly with interstitial pulmonary edema lpattern and bilateral pleural effusions. Renal U/S (04/28): increased cortical echogenicity is present, nonspecific, but probably underlying medical renal disease. 8mm right renal cyst identified. no hydronephrosis or suspicious renal mass. Nuclear Cardiac Stress (04/30): MILD stress induced ischemia involving the septal wall near the cardiac apex. EF: 44% TTE (04/28): EF: 57%, small pericardial effusion. no wall motion abnormality. dilated LA Problem List: NSTEMI Acute renal failure vs CKDV Hypertension Prediabetes Brief History of Present Illness: 74yo M, PMH: HTN, not taking any medications, prsented to ED for GAITAN with upper abdominal bloating/discomfort. Evaluation in ED revealed elevated creatinine (4.14), elevated glucose (200), EKG with some ST depressions in inferior lateral leads, with troponin: 0.24, b/l pleural effuions and pulmonary edema noted on imaging. He was given full dose lovenox in the ED and admitted for further evaluation/management. Hospital Course: Cardiology and Nephrology were consulted for NSTEMI / renal failure, respectively. Troponin was trended and peaked at 6.6. His renal function did not improve and Cr remained >4.0. Throughout his hospitalization / ED Visit, he denied any chest pain/chest pressure. His vague abdominal bloating "air" resolved in ED and denied any recurrence during his hospitalization. Risks/benef its were discussed at length with patient and family (son, brother). They ultimately decided on going forward with less invasive testing at this time due to risk of worsening renal failure / dialysis from IV contrast used in cardiac cath. Echo was rather unremarkable as noted above, however nuclear stress testing revealed a mild stress-induced ischemia. This was reviewed with Cardiology and the patient again. He opted to hold off cardiac catheterization for now and will follow up with Cardiology and Nephrology in the next 2-3 weeks. Multiple lab tests / serology for renal workup were sent during hospitalization and patient will f/u with nephrology to review those results when they return (send-outs). He was discharged with medical therapy for his NSTEMI - aspirin, plavix, statin, metoprolol. 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 Hyperglycemia, A1c: 6.1, patient with prediabetes. He was advised to f/u with PCP. Vital Signs/Physical Exam: Temp Pulse Resp BP Pulse Ox 97.8 F 45 L 18 139/66 97 04/30/20 12:44 04/30/20 12:44 04/30/20 12:44 04/30/20 14:00 04/30/20 12:44 General: Alert, In no apparent distress HEENT: Sclerae nonicteric Respiratory: Clear to auscultation bilaterally, Normal air movement Cardiovascular: No edema, Regular rate/rhythm Gastrointestinal: Soft and benign, Non-distended, No tenderness Musculoskeletal: No tenderness Integumentary: No rashes Neurological: Normal speech, Normal affect Laboratory Data at Discharge: WBC 11.4 K/uL (4.3-10.9) H D 04/30/20 05:09 Hgb 9.2 g/dL (13.6-17.9) L 04/30/20 05:09 Hct 28.9 % (39.6-49.0) L 04/30/20 05:09 Plt Count 290 K/uL (152-406) 04/30/20 05:09 Sodium 142 mmol/L (136-145) 04/30/20 05:09 Potassium 3.5 mmol/L (3.5-5.1) 04/30/20 05:09 BUN 43 mg/dL (7-18) H 04/30/20 05:09 Creatinine 4.10 mg/dL (0.55-1.3) H 04/30/20 05:09 Glucose 110 mg/dL (74-106) H 04/30/20 05:09 Uric Acid 8.8 mg/dL (3.5-7.2) H 04/29/20 04:09 Phosphorus 4.3 mg/dL (2.5-4.9) 04/30/20 05:09 Magnesium 2.0 mg/dL (1.8-2.4) 04/29/20 04:09 Total Bilirubin 0.7 mg/dL (0.2-1.0) 04/29/20 04:09 AST 35 U/L (15-37) 04/29/20 04:09 ALT 15 U/L (12-78) 04/29/20 04:09 Alkaline Phosphatase 60 U/L (45-117) 04/29/20 04:09 Troponin I 6.08 ng/mL (0.0-0.045) H* 04/29/20 04:09 Triglycerides 213 mg/dL (<150) H 04/28/20 04:06 Cholesterol 288 mg/dL (<200) H 04/28/20 04:06 HDL Cholesterol 33 mg/dL (40-60) L 04/28/20 04:06 Cholesterol/HDL Ratio 8.73 04/28/20 04:06 Lipase 181 U/L (73-393) 04/27/20 22:45 Home Medications: Aspirin [Aspirin EC 81 MG] 81 mg PO DAILY 30 Days #30 tablet.dr 04/30/20 Atorvastatin Calcium [Lipitor] 40 mg PO BEDTIME 30 Days #30 tab 04/30/20 Calcitrol [Rocaltrol*] 0.25 mcg PO Q48H 30 Days #15 cap 04/30/20 Clopidogrel Bisulfate [Plavix] 75 mg PO DAILY 30 Days #30 tablet 04/30/20 Furosemide [Lasix*] 40 mg PO BIDL 30 Days #60 tab 04/30/20 Hydralazine [Apresoline*] 100 mg PO TID 30 Days #90 tab 04/30/20 Metoprolol Tartrate [Lopressor] 25 mg PO BID 30 Days #60 tab 04/30/20 NIFEdipine [Nifedipine ER] 60 mg PO DAILY 30 Days #30 tab.er.24 04/30/20 New Medications: Hydralazine [Apresoline*] 100 mg PO TID 30 Days #90 tab Aspirin [Aspirin EC 81 MG] 81 mg PO DAILY 30 Days #30 tablet. Furosemide [Lasix*] 40 mg PO BIDL 30 Days #60 tab Atorvastatin Calcium [Lipitor] 40 mg PO BEDTIME 30 Days #30 tab Metoprolol Tartrate [Lopressor] 25 mg PO BID 30 Days #60 tab NIFEdipine [Nifedipine ER] 60 mg PO DAILY 30 Days #30 tab.er.24 Clopidogrel Bisulfate [Plavix] 75 mg PO DAILY 30 Days #30 tablet Calcitrol [Rocaltrol*] 0.25 mcg PO Q48H 30 Days #15 cap Patient Discharge Instructions: you were found to have renal failure and had some mild cardiac ischemia. You will need to follow up with nephrology (kidney doctors) in 2 weeks. You will need to follow up with Cardiology in 1-2 weeks. You are sent home on several medications for your heart, kidneys, and blood pressure. Please take as prescribed. Diet: Renal Activity: Ad yuriy Followup: Jim Gunderson MD [ACTIVE - CAN ADMIT] - 1-2 Weeks (Follow up in office in 1- 2 weeks. Call to schedule an appointment.) Dusty Glover MD [ACTIVE - CAN ADMIT] - (Follow up in office in 2 weeks. Call to schedule an appointment.) Time spent managing pt's care (in minutes): 50
[2020-05-02 15:54] LABS: Hepatitis C Virus RNA (PCR)log <1.18 log IU/mL
--- NOTE | 2020-05-03 08:52 | TREADPHA ---
DX: NSTEMI Date of Study: 04/30/2020 Ht: 5' 8 " Wt: 160 lb 11.2 oz Consulting Physician: RONNY MEDICATIONS: NORVASC, LIPITOR, LOVENOX, LOPRESSOR HISTORY: 75 YEAR OLD MALE WITH HISTORY OF HYPERTENSION, ACUTE RENAL FAILURE AND ELEVATED TROPONIN. PHYSICIAL EXAMINATION: RESTING B.P.: 128/64 RESTING H.R.: 62 RESTING EKG: NORMAL SINUS RHYTHM, LEFT VENTRICULAR HYPERTROPHY, PREMATURE ATRIAL COMPLEXES. PROTOCOL: LEXISCAN EXERCISE TIME: 3:30 B.P. AT PEAK STRESS: 158/61 IMPRESSION: LEXISCAN STRESS TEST PERFORMED. CARDIOLITE INJECTED PER PROTOCOL. SEE NUCLEAR MEDICINE REPORT. NO SUPRAVENTRICULAR TACHYCARDIA. NO VENTRICULAR TACHYCARDIA. PREMATURE ATRIAL COMPLEXES NOTED. RESPIRATORY EVEN AND NONLABORED. PATIENT TOLERATED WELL.
[2020-05-04 20:40] LABS: HBsAG Nonreactive (Nonreactive)
[2020-05-04 23:31] LABS: Albumin, (SPE) 2.7 g/dL (3.8-4.8); Alpha-1-Globulins 0.3 g/dL (0.2-0.3); Alpha-2-Globulins 0.8 g/dL (0.5-0.9); Gamma Globulins 0.8 g/dL (0.8-1.7); INTERPRETATION REPORT
[2020-05-08 13:42] LABS: Vitamin D 1,25-Dihydroxy Total 13 pg/mL (18-72); Vitamin D,1,25-OH2, D2 <8 pg/mL
== END 2020-04-30 16:55 | disposition home or self-care (01) | DRG 682 ==
LOC: ER 21:28 → MERGE 04-28 01:51 → ERHOLD 04-28 01:51 → 2ND 04-28 02:54
PROVIDERS: ADMIT Hospitalist; ATTEND Hospitalist
DX: N17.9 Acute kidney failure, unspecified (principal); I21.4 Non-ST elevation (NSTEMI) myocardial infarction; I13.2 Hypertensive heart and chronic kidney disease with heart failure and with stage 5 chronic kidney disease, or end stage renal disease; I50.22 Chronic systolic (congestive) heart failure; N18.5 Chronic kidney disease, stage 5; D50.9 Iron deficiency anemia, unspecified; I25.9 Chronic ischemic heart disease, unspecified; E78.5 Hyperlipidemia, unspecified; D63.1 Anemia in chronic kidney disease; R73.03 Prediabetes; R73.9 Hyperglycemia, unspecified; Z90.49 Acquired absence of other specified parts of digestive tract; Z79.82 Long term (current) use of aspirin; Z91.14 Patient's other noncompliance with medication regimen; Z79.02 Long term (current) use of antithrombotics/antiplatelets; Z79.899 Other long term (current) drug therapy; Z20.822 Contact with and (suspected) exposure to COVID-19
CPT/HCPCS: 36415; 71045; 74176; 76770; 78452; 80048; 80053; 80061; 80069; 80076; 81003; 81015; 82550; 82570; 82607; 82652; 82728; 82746; 82947; 83036; 83520; 83540; 83690; 83735; 83970; 84156; 84165; 84439; 84443; 84466; 84484; 84550; 85025; 85044; 86021; 86038; 86160; 86225; 86317; 86430; 86704; 86706; 87086; 87088; 87340; 87522; 93005; 93017; 93306; 96372; 96374; 99285; A9500; J0360; J1940; J2785; J2916; J7050; U0003

== ENCOUNTER 2020-08-07 13:37 | Emergency (ER) | payer OTHER ==
--- OUTSIDE RECORDS SUMMARY | 2020-08-07 13:40 | XMS REPORT | Continuity of Care Document ---
:1945 Author Organization [facility] t Address [address] [place] [address] Care Team Providers Name Role Phone Unavailable Unavailable Unavailable Problems This patient has no known problems. Allergies, Adverse Reactions, Alerts This patient has no known allergies or adverse reactions. Medications This patient has no known medications. Procedures This patient has no known procedures. Encounters Start End Encounter Admission Attending Care Care Encounter Source Date/Time Date/Time Type Type Clinicians Facility Department ID 2020-08-03 2020-08-03 Outpatient [facility] [id number] [facility] 00:00:00 00:00:00 [facility] Results This patient has no known results.
[2020-08-07 14:43] LABS: Absolute Lymphocytes (CBC) 2.4 K/uL (0.7-4.9); Basophils % 1.4 % (0-1.3); Hematocrit 30.9 % (39.6-49.0); Lymphocytes % 19.3 % (15.3-44.8); MPV 9.6 fL (7.6-11.3)
[2020-08-07 14:57] LABS: Albumin 2.8 g/dL (3.4-5.0); Bilirubin Direct 0.2 mg/dL (0-0.2); Bilirubin Total 0.7 mg/dL (0.2-1.0); Potassium 3.7 mmol/L (3.5-5.1); Protein, Total 7.1 g/dL (6.4-8.2)
--- NOTE | 2020-08-07 15:01 | RAD REPORT ---
EXAM DESCRIPTION: CT - Abdomen Pelvis Wo Contrast - 08/07/2020 2:52 pm CLINICAL HISTORY: ABD PAIN COMPARISON: <Comparisons> TECHNIQUE: Axial [address] imaging of the abdomen and pelvis was performed without IV contrast. No IV contrast was given because of allergy, abnormal renal function, patient refusal or physician re quest. No oral contrast administered. All CT scans are performed using dose optimization technique as appropriate and may include automated exposure control or mA/KV adjustment according to patient size. FINDINGS: Moderate bilateral pleural effusions are present only partially imaged. There is partial a telectasis of each lower lobe more pronounced on the left. Mild cardiomegaly is present. Pericardial effusion is present measuring 15 mm in thickness anteriorly and 22 mm posteriorly. No measurable pericardial effusion at the apex. The liver, spleen and pancreas show no suspicious findings on non-contrast imaging. Gallbladder and b iliary tree are also without suspicious finding. Gallstones can be occult on CT imaging. No hydronephrosis or suspicious renal mass. No significant adrenal finding. Isodense renal masses an d pyelonephritis cannot be excluded in the absence of IV contrast. The urinary bladder is without sig nificant finding. No prostate gland or seminal vesicle suspicious finding. No gastric dilatation or gastric wall thickening. Assessment is limited due to decompressed status. S mall bowel is not dilated. Sigmoid colon is tortuous. No colon dilatation or colon wall thickening. M oderate stool volume from cecum to splenic flexure. No appendicitis findings. No ascites is present. There is no free air, pneumatosis or acute inflammatory stranding. Small fat only left inguinal hernia is present. No other abdominal wall defects seen. No mass or bulky lymphade nopathy. No suspicious bony findings. Degenerative bone and disc changes are present. Arterial tree calcifications present without aneurysm. IMPRESSION: Moderate bilateral pleural effusions with left greater than right partial lower lobe ate lectasis. Mild cardiomegaly with pericardial effusion as detailed. No acute or emergent abdominal or pelvic finding. Nonacute findings detailed in the body of the repor t. Full assessment is limited is the absence of IV contrast.
[2020-08-07] MEDS ORDERED: PANTOPRAZOLE 40 MG INJ ONE (15:31)
[2020-08-07 15:42] LABS: Protime INR 1.17
[2020-08-07 15:52] LABS: Magnesium 2.2 mg/dL (1.8-2.4); Troponin (Emerg Dept Use Only) 0.04 ng/mL (0.0-0.045)
--- NOTE | 2020-08-07 16:19 | RAD REPORT ---
EXAM DESCRIPTION: RAD - Chest Single View - 08/07/2020 4:05 pm CLINICAL HISTORY: pericardial effusion There was misregistration of the patient resulting in the patient's prior imaging studies and current studies not properly merged. The April comparison chest film was found under the other registratio n form of the patient. COMPARISON: April 2020 TECHNIQUE: AP portable chest image was obtained 08/07/2020 4:05 pm . FINDINGS: No acute lung parenchymal finding seen. There is left lung base atelectasis with left grea ter than right bilateral pleural effusions. No significant interval change since April. Cardiac silhouette is enlarged. This is a combination of mild chamber enlargement and mild pericardi al effusion, both of which are stable from April. No pneumothorax. No acute bony abnormality seen. No acute aortic findings suspected. IMPRESSION: Left greater than right pleural effusions with mild cardiomegaly and mild pericardial ef fusion. Chest findings are stable from April 2020.
--- NOTE | 2020-08-07 16:32 | ER ---
Nurse's Notes [facility] Name: Roscoe Urias Age: 74 yrs Sex: Male : 1945 Arrival Date: 08/07/2020 Time: 13:39 Bed 7 Private MD: Diagnosis: Eructation Presentation: 08/07 13:57 Chief complaint: Patient states: I have a lot of gas in my stomach, can't sleep at ca1 night and has gotten worse. Been going for about a week. Denie N/V/D. Coronavirus screen: Client denies travel out of the [place] in the last 14 days. At this time, the client does not indicate any symptoms associated with coronavirus-19. Ebola Screen: Patient negative for fever greater than or equal to 101.5 degrees Fahrenheit, and additional compatible Ebola Virus Disease symptoms Patient denies exposure to infectious person. Patient denies travel to an Ebola-affected area in the 21 days before illness onset. No symptoms or risks identified at this time. Initial Sepsis Screen: Does the patient meet any 2 criteria? No. Patient's initial sepsis screen is negative. Does the patient have a suspected source of infection? No. Patient's initial sepsis screen is negative. Risk Assessment: Do you want to hurt yourself or someone else? Patient reports no desire to harm self or others. Onset of symptoms was August 07, 2020. 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 ca1 Historical: - Allergies: 14:01 No Known Allergies; ca1 - PMHx: 14:01 Diabetes; Hyperlipidemia; Hypertension; ca1 - PSHx: 14:01 None; ca1 - Immunization history:: Adult Immunizations not up to date, Flu vaccine is not up to date. - Social history:: Smoking status: Patient denies any tobacco usage or history of. Screenin:10 Abuse screen: Denies threats or abuse. Denies injuries from another. Nutritional jl7 screening: No deficits noted. Tuberculosis screening: No symptoms or risk factors identified. Fall Risk IV access (20 points). Total [place] Fall Scale indicates No Risk (0-24 pts). Assessment: 14:20 General: Appears in no apparent distress. uncomfortable, Behavior is calm, cooperative, jl7 appropriate for age. Pain: Complains of pain in diaphragm Pain does not radiate. Pain currently is 5 out of 10 on a pain scale. Quality of pain is described as "It just hurts." Pain began 1 day ago. Is continuous. Neuro: Level of Consciousness is awake, alert, obeys commands, Oriented to person, place, time, situation. Cardiovascular: Patient's skin is warm and dry. Respiratory: Airway is patent Respiratory effort is even, unlabored, Respiratory pattern is regular, symmetrical. GI: Abdomen is non-distended, Abd is soft and non tender Reports bloating, epigastric pain, gaseousness, Patient currently denies diarrhea, nausea, vomiting. Derm: Skin is pink, warm \\T\\ dry. 15:30 Reassessment: Patient appears in no apparent distress at this time. No changes from jl7 previously documented assessment. Patient and/or family updated on plan of care and expected duration. Pain level reassessed. Patient is alert, oriented x 3, equal unlabored respirations, skin warm/dry/pink. 16:30 Reassessment: Patient appears in no apparent distress at this time. No changes from jl7 previously documented assessment. Patient and/or family updated on plan of care and expected duration. Pain level reassessed. Patient is alert, oriented x 3, equal unlabored respirations, skin warm/dry/pink. Vital Signs: 13:57 BP 148 / 62; Pulse 65; Resp 17 S; Temp 97.4(TE); Pulse Ox 98% on R/A; Weight 79.83 kg ca1 (R); Height 5 ft. 8 in. (172.72 cm) (R); Pain 0/10; 15:10 BP 147 / 62; Pulse 64; Resp 15; Pulse Ox 100% ; jl7 16:19 BP 158 / 64; Pulse 71; Resp 20; Pulse Ox 100% on R/A; mh5 17:00 BP 160 / 60; Pulse 68; Resp 15; Pulse Ox 100% ; jl7 13:57 Body Mass Index 26.76 (79.83 kg, 172.72 cm) ca1 ED Course: 13:39 Patient arrived in ED. as 14:00 Triage completed. ca1 14:01 Arm band placed on right wrist. ca1 14:17 Gisela Steele [facility]-C [facility]. kb 14:17 Vipul Reddy MD is Attending Physician. kb 14:20 Guillaume Sarkar, RN is Primary Nurse. jl7 14:20 Patient has correct armband on for positive identification. Bed in low position. Call jl light in reach. Side rails up X 1. Pulse ox on. NIBP on. 14:25 Initial lab(s) drawn, by ky, sent to lab. Inserted saline lock: 20 gauge in right jl7 antecubital area, using aseptic technique. Blood collected. 14:52 Abdomen In Process Unspecified. EDMS 15:20 EKG done, by ED staff, reviewed by Gisela ROQUE. 5 15:34 Magnesium Sent. 5 15:34 NT PRO-BNP Sent. 5 15:35 Troponin (emerg Dept Use Only) Sent. 5 15:35 PT-INR Sent. 5 15:35 Magnesium Sent. 5 15:35 NT PRO-BNP Sent. 5 15:35 Troponin (Emerg Dept Use Only) Sent. 5 15:35 Protime (+INR) Sent. mh5 16:11 XRAY Chest (1 view) In Process Unspecified. EDMS 17:40 No provider procedures requiring assistance completed. IV discontinued, intact, jl7 bleeding controlled, No redness/swelling at site. Pressure dressing applied. Administered Medications: 15:15 Drug: ProTONIX 40 mg Route: IVP; Site: right antecubital; jl7 16:29 Follow up: Response: No adverse reaction jl7 16:28 Drug: Simethicone 240 mg Route: PO; jl7 17:40 Follow up: Response: No adverse reaction jl7 Outcome: 16:31 Discharge ordered by . kb 17:40 Discharged to home ambulatory. jl7 17:40 Condition: stable 17:40 Discharge instructions given to patient, family, Instructed on discharge instructions, follow up and referral plans. medication usage, Demonstrated understanding of instructions, follow-up care, medications, Prescriptions given X 1. 17:41 Patient left the ED. jl7 Signatures: Dispatcher [employer] EDMS Gisela Steele FNP-C FNP-Jackie Cano Maria 5 Guillaume Sarkar, RN RAJESH jl7 Caitlyn Grant RN RN ca1
--- NOTE | 2020-08-07 16:32 | EDPHYS ---
Physician Documentation [facility] Name: Roscoe Urias Age: 74 yrs Sex: Male : 1945 Arrival Date: 08/07/2020 Time: 13:39 Bed 7 Private MD: ED Physician Vipul Reddy HPI: 08/07 16:25 This 74 yrs old Male presents to ER via Ambulatory with complaints of kb gas/belching. 16:28 Pt reports he has had a lot of gas over the last week. Last night started belching a kb lot and couldn't get any sleep because of it. Onset: The symptoms/episode began/occurred 1 week(s) ago. Severity of symptoms: At their worst the symptoms were moderate in the emergency department the symptoms are unchanged. The patient has not experienced similar symptoms in the past. The patient has not recently seen a physician. Historical: - Allergies: 14:01 No Known Allergies; ca1 - PMHx: 14: Diabetes; Hyperlipidemia; Hypertension; ca1 - PSHx: 14: None; ca1 - Immunization history:: Adult Immunizations not up to date, Flu vaccine is not up to date. - Social history:: Smoking status: Patient denies any tobacco usage or history of. ROS: 16:24 Constitutional: Negative for fever, chills, and weight loss, Cardiovascular: Negative kb for chest pain, palpitations, and edema, Respiratory: Negative for shortness of breath, cough, wheezing, and pleuritic chest pain, MS/Extremity: Negative for injury and deformity, Skin: Negative for injury, rash, and discoloration, Neuro: Negative for headache, weakness, numbness, tingling, and seizure. 16:24 Abdomen/GI: Positive for belching/gas, Negative for abdominal pain, nausea, vomiting, and diarrhea. Exam: 16:24 Constitutional: This is a well developed, well nourished patient who is awake, alert, kb and in no acute distress. Head/Face: Normocephalic, atraumatic. Cardiovascular: Regular rate and rhythm with a normal S1 and S2. No gallops, murmurs, or rubs. No pulse deficits. Respiratory: Respirations even and unlabored. No increased work of breathing, no retractions or nasal flaring. Abdomen/GI: Soft, non-tender. No distention Skin: Warm, dry with normal turgor. Normal color. MS/ Extremity: Pulses equal, no cyanosis. Neurovascular intact. Full, normal range of motion. Neuro: Awake and alert, GCS 15, oriented to person, place, time, and situation. Moves all extremities. Normal gait. Vital Signs: 13:57 BP 148 / 62; Pulse 65; Resp 17 S; Temp 97.4(TE); Pulse Ox 98% on R/A; Weight 79.83 kg ca1 (R); Height 5 ft. 8 in. (172.72 cm) (R); Pain 0/10; 15:10 BP 147 / 62; Pulse 64; Resp 15; Pulse Ox 100% ; jl7 16:19 BP 158 / 64; Pulse 71; Resp 20; Pulse Ox 100% on R/A; mh5 17:00 BP 160 / 60; Pulse 68; Resp 15; Pulse Ox 100% ; jl7 13:57 Body Mass Index 26.76 (79.83 kg, 172.72 cm) ca1 MDM: 14:17 Patient medically screened. kb 16:20 Data reviewed: vital signs, nurses notes. Data interpreted: Pulse oximetry: on room air kb is 100 %. Interpretation: normal. Counseling: I had a detailed discussion with the patient and/or guardian regarding: the historical points, exam findings, and any diagnostic results supporting the discharge/admit diagnosis, lab results, radiology results, the need for outpatient follow up, a microwave technician, a family practitioner, to return to the emergency department if symptoms worsen or persist or if there are any questions or concerns that arise at home. ED course: Diagnostics similar to previous visit in April 2020. Pericardial effusion, pleural effusion, cardiomegaly stable since April. Pt educated to follow up with nephrology, cardiology and PCP. Verbal understanding received. . 08/07 14:17 Order name: Basic Metabolic Panel; Complete Time: 14:59 kb 08/07 14:17 Order name: CBC with Diff; Complete Time: 14:59 kb 08/07 14:17 Order name: Hepatic Function; Complete Time: 14:59 kb 08/07 14:17 Order name: Lipase; Complete Time: 14:59 kb 08/07 15:18 Order name: Magnesium kb 08/07 15:18 Order name: NT PRO-BNP kb 08/07 14:39 Order name: Abdomen ; Complete Time: 15:41 EDMS 08/07 15:18 Order name: PT-INR kb 08/07 15:18 Order name: Troponin (emerg Dept Use Only) kb 08/07 15:19 Order name: Magnesium; Complete Time: 16:10 EDMS 08/07 15:19 Order name: NT PRO-BNP; Complete Time: 16:10 EDMS 08/07 15:19 Order name: Protime (+INR); Complete Time: 15:44 EDMS 08/07 15:19 Order name: Troponin (Emerg Dept Use Only); Complete Time: 16:10 EDMS 08/07 14:17 Order name: IV Saline Lock; Complete Time: 14:28 kb 08/07 14:17 Order name: Labs collected and sent; Complete Time: 14:28 kb 08/07 15:18 Order name: EKG - Nurse/Tech; Complete Time: 15:19 kb 08/07 15:18 Order name: XRAY Chest (1 view); Complete Time: 16:20 kb 08/07 15:18 Order name: EKG; Complete Time: 15:19 kb 08/07 15:18 Order name: Cardiac monitoring; Complete Time: 15:20 kb 08/07 15:18 Order name: O2 Per Protocol; Complete Time: 15:50 kb 08/07 15:18 Order name: O2 Sat Monitoring; Complete Time: 15:50 kb Administered Medications: 15:15 Drug: ProTONIX 40 mg Route: IVP; Site: right antecubital; jl7 16:29 Follow up: Response: No adverse reaction [facility] 16:28 Drug: Simethicone 240 mg Route: PO; jl7 17:40 Follow up: Response: No adverse reaction [facility] Disposition: 08/08 08:31 Co-signature as Attending Physician, Vipul Reddy MD I agree with the assessment and xavier plan of care. Disposition: 08/07/20 16:31 Discharged to Home. Impression: Eructation. - Condition is Stable. - Discharge Instructions: Gastroesophageal Reflux Disease, Adult, [id number]-yc-Lrcy. - Prescriptions for Protonix 40 mg Oral Tablet - take 1 tablet by ORAL route once daily; 30 tablet. - Medication Reconciliation Form, Thank You Letter, Antibiotic Education, Prescription Opioid Use form. - Follow up: Emergency Department; When: As needed; Reason: Worsening of condition. Follow up: Private Physician; When: 2 - 3 days; Reason: Recheck today's complaints, Continuance of care, Re-evaluation by your physician. Signatures: Dispatcher [employer] [facility] Gisela Steele, CLIENT DELIVERY SPECIALIST-C CLIENT DELIVERY SPECIALIST-Vipul Magana MD MD cha Leal, Jahala, RN RN jl7 Caitlyn Grant RN RN ca1 Corrections: (The following items were deleted from the chart) 08/07 14:39 14:18 Abdomen Pelvis W Con+CT.RAD.BRZ ordered. [facility] 17:41 16:31 08/07/2020 16:31 Discharged to Home. Impression: Eructation. Condition is Stable. jl7 Forms are Medication Reconciliation Form, Thank You Letter, Antibiotic Education, Prescription Opioid Use. Follow up: Emergency Department; When: As needed; Reason: Worsening of condition. Follow up: Private Physician; When: 2 - 3 days; Reason: Recheck today's complaints, Continuance of care, Re-evaluation by your physician. kb
[2020-08-07] MEDS ORDERED: SIMETHICONE 80 MG TAB ONE (16:45)
[2020-08-07 17:51] VITALS: TEMP 97.4
[2020-08-07 17:52] VITALS: O2SAT 100
[2020-08-07 17:54] VITALS: BP 160/60
== END 2020-08-07 17:41 | disposition home or self-care (01) ==
LOC: ER 13:37
DX: R14.2 Eructation (principal); E11.9 Type 2 diabetes mellitus without complications; E78.5 Hyperlipidemia, unspecified; I10 Essential (primary) hypertension
CPT/HCPCS: 85025; 80048; 36415; 83735; 85610; 82565; 80076; 84484; 83690; 83880; 74176; 71045; C9113; 93005; 96374; 99284

== ENCOUNTER 2020-11-11 01:22 | Emergency (ER) | payer OTHER ==
--- OUTSIDE RECORDS SUMMARY | 2020-11-11 01:26 | XMS REPORT | Continuity of Care Document ---
:1945 Author Organization [facility] t Address [address] [place] [address] Care Team Providers Name Role Phone Unavailable Unavailable Unavailable Problems This patient has no known problems. Allergies, Adverse Reactions, Alerts This patient has no known allergies or adverse reactions. Medications This patient has no known medications. Procedures This patient has no known procedures. Encounters Start End Encounter Admission Attending Care Care Encounter Source Date/Time Date/Time Type Type Clinicians Facility Department ID 2020-09-02 2020-09-02 Outpatient [facility] [id number] [facility] 2020-08-09 2020-08-09 Outpatient [facility] [id number] [facility] 2020-08-03 2020-08-03 Outpatient [facility] [id number] [facility] Results This patient has no known results.
[2020-11-11] MEDS ORDERED: LIDOCAINE VISCOUS 2% SOLN 15 ML UDC ONE (03:14)
[2020-11-11] MEDS ORDERED: MAGNES/ALUMIN/SIMET 30ML UCUP ONE (03:14)
[2020-11-11 03:21] LABS: Absolute Lymphocytes (CBC) 2.1 K/uL (0.7-4.9); Basophils % 1.4 % (0-1.3); Hematocrit 26.8 % (39.6-49.0); Lymphocytes % 17.8 % (15.3-44.8); MPV 9.7 fL (7.6-11.3); RBC Red Blood Cell Count 2.94 M/uL (4.33-5.43)
[2020-11-11 03:34] LABS: Albumin 3.3 g/dL (3.4-5.0); Bilirubin Direct 0.2 mg/dL (0-0.2); Bilirubin Total 0.8 mg/dL (0.2-1.0); Potassium 4.4 mmol/L (3.5-5.1); Protein, Total 7.4 g/dL (6.4-8.2)
--- NOTE | 2020-11-11 04:47 | EDPHYS ---
Physician Documentation [facility] Name: Roscoe Urias Age: 75 yrs Sex: Male : 1945 Arrival Date: 11/11/2020 Time: :30 Bed 4 Private MD: ED Physician Dinesh Goddard HPI: 11/11 02:54 This 75 yrs old Male presents to ER via Ambulatory with complaints of rn abdominal bloating. 02:54 The patient presents with abdominal pain. Onset: The symptoms/episode began/occurred rn today. The symptoms do not radiate. Associated signs and symptoms: Pertinent positives: nausea, Pertinent negatives: blood in stools, diarrhea, dysuria, fever, shortness of breath, vomiting, vomiting blood. The symptoms are described as achy. Modifying factors: The symptoms are alleviated by nothing, the symptoms are aggravated by nothing. Severity of pain: At its worst the pain was very mild in the emergency department the pain is unchanged. The patient has not experienced similar symptoms in the past. The patient has not recently seen a physician. Patient reports that last night began to feel abdominal bloating, hiccups. Denies fever chest pain shortness of breath vomiting diarrhea. Reports feels like has to get gas out but not able to get it out. Last bowel movement yesterday and was normal.. Historical: - Allergies: :30 No Known Allergies; em - Home Meds: 01:30 glimepiride 4 mg Oral tab 1 tab once daily [Active]; Lasix 40 mg Oral tab 1 tab once em daily [Active]; Lipitor 20 mg Oral tab 1 tab once daily [Active]; metformin 500 mg Oral tab 1 tab 2 times per day [Active]; Norvasc 5 mg Oral tab 1 tab once daily [Active]; - PMHx: 01:30 Diabetes; Hyperlipidemia; Hypertension; em - PSHx: 01:30 None; em - Immunization history:: Adult Immunizations Client reports receiving the 2nd dose of the Covid vaccine, Client reports receiving the 1st dose of the Covid vaccine. - Social history:: Smoking status: Patient denies any tobacco usage or history of. Patient/guardian denies using alcohol, street drugs. - Family history:: not pertinent. - Hospitalizations: : No recent hospitalization is reported. ROS: 02:54 Constitutional: Negative for fever, chills, and weight loss, Eyes: Negative for injury, rn pain, redness, and discharge, Neck: Negative for injury, pain, and swelling, Cardiovascular: Negative for chest pain, palpitations, and edema, Respiratory: Negative for shortness of breath, cough, wheezing, and pleuritic chest pain, Abdomen/GI: Positive for hiccups and abdominal bloating Back: Negative for injury and pain, : Negative for injury, bleeding, discharge, and swelling, MS/Extremity: Negative for injury and deformity, Skin: Negative for injury, rash, and discoloration, Neuro: Negative for headache, weakness, numbness, tingling, and seizure. Exam: 02:54 Constitutional: This is a well developed, well nourished patient who is awake, alert, rn and in no acute distress. Head/Face: Normocephalic, atraumatic. Eyes: Periorbital areas with no swelling, redness, or edema. Cardiovascular: Bradycardic, regular. No pulse deficits. Respiratory: Speaking full sentences, unlabored. no increased work of breathing, no retractions or nasal flaring. Abdomen/GI: Soft, no focal tenderness, no masses. Positive tympany Skin: Warm, dry with normal turgor. Normal color with no rashes, no lesions, and no evidence of cellulitis. MS/ Extremity: Pulses equal, no cyanosis. Neurovascular intact. Full, normal range of motion. Equal circumference. Neuro: Awake and alert, GCS 15, oriented to person, place, time, and situation. Cranial nerves II-XII grossly intact. Motor strength 5/5 in all extremities. Sensory grossly intact. Cerebellar exam normal. Normal gait. Vital Signs: 01:33 BP 203 / 80; Pulse 54; Resp 20; Temp 97.8(O); Pulse Ox 99% on R/A; Weight 73.94 kg; em Height 5 ft. 7 in. (170.18 cm); Pain 0/10; 03:09 BP 211 / 81; Pulse 56; Resp 18; Pulse Ox 99% ; ea 05:45 BP 208 / 80; Pulse 60; Resp 18; Pulse Ox 99% on R/A; ea 01:33 Body Mass Index 25.53 (73.94 kg, 170.18 cm) em MDM: 02:32 Patient medically screened. rn 04:44 Differential diagnosis: appendicitis, bowel obstruction, diverticulitis, gastritis, rn gastroesophageal reflux disease, non-specific abd pain, pancreatitis, Ureterolithiasis, Pleural effusion, chronic kidney disease, nonspecific abdominal pain. Data reviewed: vital signs, nurses notes, lab test result(s), radiologic studies, CT scan, and as a result, I will discharge patient. Counseling: I had a detailed discussion with the patient and/or guardian regarding: the historical points, exam findings, and any diagnostic results supporting the discharge/admit diagnosis, lab results, radiology results, the need for outpatient follow up, to return to the emergency department if symptoms worsen or persist or if there are any questions or concerns that arise at home. Response to treatment: the patient's symptoms have mildly improved after treatment, and as a result, I will discharge patient. Special discussion: Based on the patient's Hx, exam, and Dx evaluation, there is no indication for emergent surgery or inpatient Tx. It is understood by the patient/guardian that if the Sx's persist or worsen they need to return immediately for re-evaluation. I discussed with the patient/guardian in detail that at this point there is no indication for admission to the hospital. It is understood, however, that if the symptoms persist or worsen the patient needs to return immediately for re-evaluation. Based on the history and exam findings, there is no indication for further emergent testing or inpatient evaluation. I discussed with the patient/guardian the need to see the primary care provider for further evaluation of the symptoms. ED course: Patient states feels better, labs show his chronic kidney disease to be near baseline, CT abdomen without any acute disease. Will give a little Lasix to help diurese. Will discharge home with PCP and nephrology follow-up. Return precautions given and understood. 11/11 02:37 Order name: Basic Metabolic Panel; Complete Time: 03:35 rn 11/11 02:37 Order name: CBC with Diff; Complete Time: 03:35 rn 11/11 02:37 Order name: Hepatic Function; Complete Time: 03:35 rn 11/11 02:37 Order name: Lipase; Complete Time: 03:35 rn 11/11 03:40 Order name: Abdomen EDMS 11/11 02:37 Order name: IV Saline Lock; Complete Time: 02:50 rn 11/11 02:37 Order name: Labs collected and sent; Complete Time: 02:50 rn Administered Medications: 02:57 Drug: GI Cocktail without - (Maalox Suspension 30 ml, Lidocaine Liquid 2 % 15 ea ml) Route: PO; 05:27 Follow up: Response: No adverse reaction ea 05:44 Drug: Lasix (furosemide) 40 mg Route: IVP; Site: left antecubital; ea 05:57 Follow up: Response: No adverse reaction ea Disposition Summary: 11/11/20 04:46 Discharge Ordered Location: Home rn Problem: new rn Symptoms: have improved rn Condition: Stable rn Diagnosis - Abdominal pain, unspecified rn - Chronic kidney disease, unspecified rn - Pleural effusion, not elsewhere classified rn Followup: rn - With: Private Physician - When: As needed - Reason: Recheck today's complaints, Re-evaluation by your physician Discharge Instructions: - Discharge Summary Sheet rn - Abdominal Pain, Adult rn - Pleural Effusion rn - Chronic Kidney Disease, Adult, [id number] rn Forms: - Medication Reconciliation Form rn - Thank You Letter rn - 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 EDOH EDMS
--- NOTE | 2020-11-11 04:47 | ER ---
Nurse's Notes [facility] Name: Roscoe Urias Age: 75 yrs Sex: Male : 1945 Arrival Date: 11/11/2020 Time: 01:30 Bed 4 Private MD: Diagnosis: Abdominal pain, unspecified;Chronic kidney disease, unspecified;Pleural effusion, not elsewhere classified Presentation: 11/11 01:36 Chief complaint: Patient states: I feel really bloated and I have been belching a lot. em Denies any pain. Coronavirus screen: Client denies travel out of the [place] in the last 14 days. Ebola Screen: Patient negative for fever greater than or equal to 101.5 degrees Fahrenheit, and additional compatible Ebola Virus Disease symptoms Patient denies exposure to infectious person. Patient denies travel to an Ebola-affected area in the 21 days before illness onset. Initial Sepsis Screen: Does the patient meet any 2 criteria? No. Patient's initial sepsis screen is negative. Does the patient have a suspected source of infection? No. Patient's initial sepsis screen is negative. Risk Assessment: Do you want to hurt yourself or someone else? Patient reports no desire to harm self or others. Onset of symptoms was November 10, 2020. 01:36 Method Of Arrival: Ambulatory em 01:36 Acuity: RUBEN 3 em Historical: - Allergies: 01:30 No Known Allergies; em - Home Meds: 01:30 glimepiride 4 mg Oral tab 1 tab once daily [Active]; Lasix 40 mg Oral tab 1 tab once em daily [Active]; Lipitor 20 mg Oral tab 1 tab once daily [Active]; metformin 500 mg Oral tab 1 tab 2 times per day [Active]; Norvasc 5 mg Oral tab 1 tab once daily [Active]; - PMHx: 01:30 Diabetes; Hyperlipidemia; Hypertension; em - PSHx: 01:30 None; em - Immunization history:: Adult Immunizations Client reports receiving the 2nd dose of the Covid vaccine, Client reports receiving the 1st dose of the Covid vaccine. - Social history:: Smoking status: Patient denies any tobacco usage or history of. Patient/guardian denies using alcohol, street drugs. - Family history:: not pertinent. - Hospitalizations: : No recent hospitalization is reported. Screenin:55 Abuse screen: Denies threats or abuse. Nutritional screening: No deficits noted. ea Tuberculosis screening: No symptoms or risk factors identified. Fall Risk None identified. Assessment: 02:56 General: Appears in no apparent distress. Behavior is calm, cooperative, appropriate ea for age. Pain: Complains of pain in abdomen. Neuro: Level of Consciousness is awake, alert, obeys commands, Oriented to person, place, time. Cardiovascular: Patient's skin is warm and dry. Respiratory: Airway is patent Respiratory effort is even, unlabored, Respiratory pattern is regular, symmetrical. Derm: Skin is pink, warm \T\ dry. 03:09 Reassessment: Patient and/or family updated on plan of care and expected duration. Pain ea level reassessed. Patient is alert, oriented x 3, equal unlabored respirations, skin warm/dry/pink. 03:45 Reassessment: Patient and/or family updated on plan of care and expected duration. Pain ea level reassessed. Patient is alert, oriented x 3, equal unlabored respirations, skin warm/dry/pink. Pt taken to CT. 05:54 Reassessment: Patient and/or family updated on plan of care and expected duration. Pain ea level reassessed. Patient is alert, oriented x 3, equal unlabored respirations, skin warm/dry/pink. Discharge instruction given to patient verbalized the understanding of instruction. Pt left ED ambulatory tolerating well. Vital Signs: 01:33 BP 203 / 80; Pulse 54; Resp 20; Temp 97.8(O); Pulse Ox 99% on R/A; Weight 73.94 kg; em Height 5 ft. 7 in. (170.18 cm); Pain 0/10; 03:09 BP 211 / 81; Pulse 56; Resp 18; Pulse Ox 99% ; ea 05:45 BP 208 / 80; Pulse 60; Resp 18; Pulse Ox 99% on R/A; ea 01:33 Body Mass Index 25.53 (73.94 kg, 170.18 cm) em ED Course: 01:30 Patient arrived in ED. em 01:37 Triage completed. em 01:37 Arm band placed on right wrist. em 02:30 Rukhsana Segura RN is Primary Nurse. ea 02:32 Dinesh Goddard MD is Attending Physician. rn 02:56 Inserted saline lock: 20 gauge in left antecubital area, using aseptic technique. Blood ea collected. 02:57 Patient has correct armband on for positive identification. Bed in low position. Call ea light in reach. Side rails up X2. 03:55 Abdomen In Process Unspecified. EDMS 05:51 No provider procedures requiring assistance completed. IV discontinued, intact, ea bleeding controlled, No redness/swelling at site. Pressure dressing applied. Administered Medications: 02:57 Drug: GI Cocktail without - (Maalox Suspension 30 ml, Lidocaine Liquid 2 % 15 ea ml) Route: PO; 05:27 Follow up: Response: No adverse reaction ea 05:44 Drug: Lasix (furosemide) 40 mg Route: IVP; Site: left antecubital; ea 05:57 Follow up: Response: No adverse reaction ea Outcome: 04:46 Discharge ordered by . rn 05:51 Discharged to home ambulatory, with friend. ea 05:51 Condition: stable 05:51 Discharge instructions given to patient, Instructed on discharge instructions, follow up and referral plans. Demonstrated understanding of instructions, follow-up care. 05:57 Patient left the ED. ea Signatures: Dispatcher [employer] EDBenjamin Milligan, RN RN Dinesh Peacock MD MD rn Antunez, Elena, RN RN ea
[2020-11-11 06:15] VITALS: TEMP 97.8; O2SAT 99
[2020-11-11 06:17] VITALS: BP 211/81
--- NOTE | 2020-11-11 13:07 | RAD REPORT ---
EXAM DESCRIPTION: CT - Abdomen Pelvis Wo Contrast - 11/11/2020 6:44 am CLINICAL HISTORY: 75 years, Male, ABDOMINAL DISTENTION COMPARISON: 08/07/2020. TECHNIQUE: Multiple transaxial tomograms of the abdomen and pelvis were performed from the lung base s to the symphysis pubis 5 mm slice thickness at 5 mm interval reconstruction, without administration of IV and oral contrast. Multiplanar reformats in the sagittal and coronal plane were generated and reviewed. This exam was performed according to our departmental dose-optimization protocol, which includes auto mated exposure control, adjustment of the mA and/or kV according to patient size and/or use of iterat jean claude reconstruction technique. FINDINGS: The lack of IV and oral contrast limits evaluation of solid organs, subtle lesions cannot be excluded. The lung bases demonstrate presence of small bilateral pleural effusions with compressive atelectatic changes. Small pericardial effusion. Cardiomegaly. Coronary atherosclerosis. Increased interstitial pulmonary markings suggesting the possibility of interstitial pulmonary edema. Grossly the unopacified liver, gallbladder, pancreas, spleen and adrenal glands demonstrate to be wit hin normal limits, no significant focal lesions were identified. The kidneys demonstrate grossly unremarkable. There is no evidence for nephrolithiasis and/or hydro nephrosis. There is minimal haziness within the perinephric aspect most likely related to fluid less likely inflammation. Grossly the unopacified stomach, small bowel and large bowel demonstrate to be within normal limits. There is no evidence for bowel dilatation/or free air. There is some residual oral contrast within th e large bowel perhaps related to previous upper GI study. The urinary bladder demonstrate to be within normal limits. There is mild prominence of the prostate gland perhaps related to BPH The aorta demonstrate atherosclerotic disease extending into the aortic bifurcation. There is no retroperitoneal lymphadenopathy. There is no evidence for ascites. The b one windows demonstrate no significant skeletal lesions. IMPRESSION: No evidence for nephrolithiasis and/or hydronephrosis. Small bilateral pleural effusions with compressive atelectatic changes. Increased interstitial pulmonary markings suggesting the possibility of interstitial pulmonary edema. Cardiomegaly with coronary atherosclerosis and small pericardial effusion. Mild prominence of the prostate gland perhaps related to BPH. Electronically signed by: Art Bueno MD 11/11/2020 4:07 AM CDT Due to temporary technical issues with the PACS/Fluency reporting system, reports are being signed by the in house radiologists without review as a courtesy to insure prompt reporting. The interpreting radiologist is fully responsible for the content of the report.
== END 2020-11-11 05:57 | disposition home or self-care (01) ==
LOC: ER 01:22
DX: E11.22 Type 2 diabetes mellitus with diabetic chronic kidney disease (principal); I12.9 Hypertensive chronic kidney disease with stage 1 through stage 4 chronic kidney disease, or unspecified chronic kidney disease; N18.9 Chronic kidney disease, unspecified; J90 Pleural effusion, not elsewhere classified
CPT/HCPCS: 36415; 74176; 80048; 80076; 83690; 85025; 96374; 99284

== ENCOUNTER 2020-11-16 09:25 | Emergency (ER) | payer OTHER ==
--- OUTSIDE RECORDS SUMMARY | 2020-11-16 09:28 | XMS REPORT | Continuity of Care Document ---
:1945 Author Organization [facility] t Address [address] [place] [address] Care Team Providers Name Role Phone Unavailable [...] Clinicians Facility Department ID 2020-09-02 2020-09-02 Outpatient [facility] [id number] [facility] 2020-08-09 2020-08-09 Outpatient [facility] [id number] [facility] 2020-08-03 2020-08-03 Out[facility] [id number] [facility] Results This patient has no known results.
[2020-11-16 10:07] LABS: Absolute Lymphocytes (CBC) 1.4 K/uL (0.7-4.9); Basophils % 1.4 % (0-1.3); Hematocrit 28.7 % (39.6-49.0); Lymphocytes % 11.9 % (15.3-44.8); MPV 8.8 fL (7.6-11.3); RBC Red Blood Cell Count 3.15 M/uL (4.33-5.43)
[2020-11-16] MEDS ORDERED: MAGNES/ALUMIN/SIMET 30ML UCUP ONE (10:16)
[2020-11-16] MEDS ORDERED: LIDOCAINE VISCOUS 2% SOLN 15 ML UDC ONE (10:16)
--- NOTE | 2020-11-16 10:17 | RAD REPORT ---
EXAM DESCRIPTION: CT - Abdomen Pelvis Wo Contrast - 11/16/2020 10:04 am CLINICAL HISTORY: worsening abd pain COMPARISON: Abdomen Pelvis Wo Contrast dated 11/11/2020 TECHNIQUE: Axial [address] imaging of the abdomen and pelvis was performed without IV contrast. No IV contrast was given because of allergy, abnormal renal function, patient refusal or physician re quest. No oral contrast given. All CT scans are performed using dose optimization technique as appropriate and may include automated exposure control or mA/KV adjustment according to patient size. FINDINGS: Moderate bilateral pleural effusions are present similar or slightly larger than the November 11 examination. Cardiomegaly is present with small pericardial effusion also stable. The liver, spleen and pancreas show no suspicious findings on non-contrast imaging. Gallbladder and b iliary tree are also without suspicious finding. No hydronephrosis or suspicious renal mass. Symmetric nonspecific perinephric stranding is present si milar to comparison. No significant adrenal finding. Isodense renal masses and pyelonephritis cannot be excluded in the absence of IV contrast. The urinary bladder is without significant finding. No dilated bowel loops or bowel wall thickening. Hyperdense material within the bowel could be ingest ed medication or contrast from a remote study. No free air, free fluid or inflammatory stranding. No mass or bulky lymphadenopathy. Small fat filled inguinal hernias noted. No suspicious bony findings. No suspicious vascular finding on noncontrast imaging. IMPRESSION: Non-contrast enhanced CT abdomen and pelvis imaging show no acute or emergent finding. . Moderate-sized bilateral pleural effusions are present questionably slightly larger than November 11 imag ing. Full assessment is limited is the absence of IV contrast.
[2020-11-16 10:24] LABS: Albumin 3.2 g/dL (3.4-5.0); Bilirubin Direct 0.2 mg/dL (0-0.2); Bilirubin Total 0.8 mg/dL (0.2-1.0); Potassium 4.2 mmol/L (3.5-5.1); Protein, Total 7.3 g/dL (6.4-8.2)
[2020-11-16] MEDS ORDERED: cloNIDine HCL 0.1 MG TAB ONE (10:55)
[2020-11-16] MEDS ORDERED: FUROSEMIDE 40 MG/4 ML VIAL ONE (11:34)
--- NOTE | 2020-11-16 18:03 | ER ---
Nurse's Notes [facility] Name: Roscoe Urias Age: 75 yrs Sex: Male : 1945 Arrival Date: 11/16/2020 Time: 09:27 Bed 2 Private MD: Diagnosis: Hypertension;Chronic kidney disease, unspecified;Upper abdominal pain, unspecified Presentation: 11/16 09:35 Chief complaint: Patient states: Epigastric bloating and belching that began 5 days ss ago. Pt was seen in the ER, but is here today because it hasn't gotten better. Denies N/V/D. Coronavirus screen: Client denies travel out of the [place] in the last 14 days. Ebola Screen: Patient denies exposure to infectious person. Patient denies travel to an Ebola-affected area in the 21 days before illness onset. Initial Sepsis Screen: Does the patient meet any 2 criteria? No. Patient's initial sepsis screen is negative. Does the patient have a suspected source of infection? No. Patient's initial sepsis screen is negative. Risk Assessment: Do you want to hurt yourself or someone else? Patient reports no desire to harm self or others. Note Pt reports he has been out of his medication since last Sunday. Onset of symptoms was November 12, 2020. 09:35 Method Of Arrival: Ambulatory ss 09:35 Acuity: RUBEN 2 ss Historical: - Allergies: 09:39 No Known Allergies; ss - Home Meds: 11:03 Norvasc 5 mg Oral tab 1 tab once daily [Active]; metformin 500 mg Oral tab 1 tab 2 ph times per day [Active]; Lasix 40 mg Oral tab 1 tab once daily [Active]; Lipitor 20 mg Oral tab 1 tab once daily [Active]; glimepiride 4 mg Oral tab 1 tab once daily [Active]; - PMHx: 09:39 Hyperlipidemia; Diabetes; Hypertension; ss - Immunization history:: Adult Immunizations up to date. - Social history:: Smoking status: Patient denies any tobacco usage or history of. - Family history:: not pertinent. - Hospitalizations: : No recent hospitalization is reported. Screenin:12 Abuse screen: Denies threats or abuse. Denies injuries from another. Nutritional ph screening: No deficits noted. Tuberculosis screening: No symptoms or risk factors identified. Fall Risk None identified. Assessment: 10:13 General: Appears in no apparent distress. comfortable, well groomed, Behavior is calm, ph cooperative, appropriate for age, Denies fever. Pain: Complains of pain in epigastric area Quality of pain is described as pressure. Neuro: Level of Consciousness is awake, alert, obeys commands, Oriented to person, place, time, situation. Cardiovascular: Capillary refill < 3 seconds in bilateral fingers Patient's skin is warm and dry. Respiratory: Airway is compromised Respiratory effort is even, unlabored, Respiratory pattern is regular, symmetrical. GI: Abdomen is non-distended, Reports upper abdominal pain, bloating, gaseousness, Patient currently denies vomiting. Derm: Skin is intact, is healthy with good turgor, Skin is pink, warm \T\ dry. Musculoskeletal: Circulation, motion, and sensation intact. Range of motion: intact in all extremities. 11:06 Reassessment: Patient appears in no apparent distress at this time. Patient and/or ph family updated on plan of care and expected duration. Pain level reassessed. Patient is alert, oriented x 3, equal unlabored respirations, skin warm/dry/pink. Vital Signs: 09:35 BP 209 / 80; Pulse 59; Resp 16; Temp 97.3(TE); Pulse Ox 98% on R/A; Weight 74.84 kg; ss Height 5 ft. 8 in. (172.72 cm); Pain 0/10; 10:37 BP 213 / 91; Pulse 68; Resp 18; Pulse Ox 98% on R/A; ph 11:34 BP 192 / 86; Pulse 69; Resp 18; Temp 97.5; Pulse Ox 98% on R/A; ph 09:35 Body Mass Index 25.09 (74.84 kg, 172.72 cm) ED Course: 09:27 Patient arrived in ED. as 09:39 Triage completed. ss 09:39 Arm band placed on right wrist. ss 09:40 Initial lab(s) drawn, by me, sent to lab. Inserted saline lock: 20 gauge in right kj1 antecubital area, using aseptic technique. Blood collected. 09:47 Dinesh Goddard MD is Attending Physician. rn 09:47 Shari Salazar RN is Primary Nurse. ph 10:04 CT Abd/Pelvis - Without Contrast In Process Unspecified. EDMS 10:12 Patient has correct armband on for positive identification. Placed in gown. Bed in low ph position. Call light in reach. Pulse ox on. NIBP on. Door closed. Noise minimized. Warm blanket given. 11:34 No provider procedures requiring assistance completed. IV discontinued, intact, ph bleeding controlled, No redness/swelling at site. Pressure dressing applied. Administered Medications: 09:59 Drug: GI Cocktail without - (Maalox Suspension 30 ml, Lidocaine Liquid 2 % 15 ph ml) Route: PO; 10:37 Follow up: Response: No adverse reaction ph 10:37 Drug: cloNIDine 0.1 mg Route: PO; ph 11:34 Follow up: Response: No adverse reaction ph 11:20 Drug: Lasix (furosemide) 40 mg Route: IVP; Site: right antecubital; ph 11:34 Follow up: Response: No adverse reaction ph Outcome: 11:10 Discharge ordered by . rn 11:34 Discharged to home ambulatory, with significant other. ph 11:34 Condition: good 11:34 Discharge instructions given to patient, significant other, Instructed on discharge instructions, follow up and referral plans. medication usage, Demonstrated understanding of instructions, follow-up care, medications, Prescriptions given X 2. 11:35 Patient left the ED. ph Signatures: Dispatcher [employer] Jackie Don Roman, MD MD rn Smirch, Shelby, RN RN ss Hall, Patricia, RN RN tosha Steele, Shirley [id number]
--- NOTE | 2020-11-16 18:03 | EDPHYS ---
Physician Documentation [facility] Name: Roscoe Urias Age: 75 yrs Sex: Male : 1945 Arrival Date: 11/16/2020 Time: : Bed 2 Private MD: ED Physician Dinesh Goddard HPI: 11/16 10:03 This 75 yrs old Male presents to ER via Ambulatory with complaints of rn Epigastric Pain. 10:03 The patient presents with abdominal pain in the epigastric area. Onset: The rn symptoms/episode began/occurred 1 week(s) ago. The symptoms do not radiate. Associated signs and symptoms: Pertinent positives: Belching, Pertinent negatives: blood in stools, chest pain, constipation, diarrhea, dysuria, fever. The symptoms are described as crampy. Modifying factors: The symptoms are alleviated by nothing, the symptoms are aggravated by nothing. Severity of pain: At its worst the pain was mild in the emergency department the pain is unchanged. The patient has experienced similar episodes in the past. The patient has been recently seen at the [facility] Emergency Department. Patient returns with persistent epigastric pain, associated with belching, seen last week in the ER for same complaint, work-up grossly negative. Reports not taking any medication [id number] for symptoms including acid medication or gas medication. No chest pain or shortness of breath, no blood in stool. No follow-up with GI since last visit.. Historical: - Allergies: 09:39 No Known Allergies; ss - Home Meds: 11:03 Norvasc 5 mg Oral tab 1 tab once daily [Active]; metformin 500 mg Oral tab 1 tab 2 ph times per day [Active]; Lasix 40 mg Oral tab 1 tab once daily [Active]; Lipitor 20 mg Oral tab 1 tab once daily [Active]; glimepiride 4 mg Oral tab 1 tab once daily [Active]; - PMHx: 09:39 Hyperlipidemia; Diabetes; Hypertension; ss - Immunization history:: Adult Immunizations up to date. - Social history:: Smoking status: Patient denies any tobacco usage or history of. - Family history:: not pertinent. - Hospitalizations: : No recent hospitalization is reported. ROS: 10:03 Constitutional: Negative for fever, chills, and weight loss, Eyes: Negative for injury, rn pain, redness, and discharge, Neck: Negative for injury, pain, and swelling, Cardiovascular: Negative for chest pain, palpitations, and edema, Respiratory: Negative for shortness of breath, cough, wheezing, and pleuritic chest pain, Abdomen/GI: Negative for vomiting, diarrhea, and constipation, Back: Negative for injury and pain, : Negative for injury, bleeding, discharge, and swelling, MS/Extremity: Negative for injury and deformity, Skin: Negative for injury, rash, and discoloration, Neuro: Negative for headache, weakness, numbness, tingling, and seizure. Exam: 10:03 Constitutional: This is a well developed, well nourished patient who is awake, alert, rn and in no acute distress. Head/Face: Normocephalic, atraumatic. Eyes: Pupils equal round and reactive to light, extra-ocular motions intact. Lids and lashes normal. Conjunctiva and sclera are non-icteric and not injected. Cornea within normal limits. Periorbital areas with no swelling, redness, or edema. Cardiovascular: Bradycardic, regular. No pulse deficits. Respiratory: Speaking full sentences, unlabored. No increased work of breathing, no retractions or nasal flaring. Abdomen/GI: Soft, no focal tenderness. No masses. Skin: Warm, dry MS/ Extremity: Pulses equal, no cyanosis. Neuro: Awake and alert, GCS 15, oriented to person, place, time, and situation. Cranial nerves II-XII grossly intact. Motor strength 5/5 in all extremities. Sensory grossly intact. Cerebellar exam normal. Normal gait. Vital Signs: 09:35 BP 209 / 80; Pulse 59; Resp 16; Temp 97.3(TE); Pulse Ox 98% on R/A; Weight 74.84 kg; ss Height 5 ft. 8 in. (172.72 cm); Pain 0/10; 10:37 BP 213 / 91; Pulse 68; Resp 18; Pulse Ox 98% on R/A; ph 11:34 BP 192 / 86; Pulse 69; Resp 18; Temp 97.5; Pulse Ox 98% on R/A; ph 09:35 Body Mass Index 25.09 (74.84 kg, 172.72 cm) ss MDM: 09:47 Patient medically screened. rn 10:58 ED course: Patient and state that he ran out of all medications recently including rn blood pressure medication and Lasix, which explains his elevated blood pressure and slowly worsening pleural effusions. Will refill medications and discharge home. No acute findings again on CAT scan or blood work.. 11:08 Differential diagnosis: gastritis, gastroesophageal reflux disease, pancreatitis, rn Peptic Ulcer Disease. Data reviewed: vital signs, nurses notes, old medical records, lab test result(s), radiologic studies, CT scan, and as a result, I will discharge patient. Counseling: I had a detailed discussion with the patient and/or guardian regarding: the historical points, exam findings, and any diagnostic results supporting the discharge/admit diagnosis, lab results, radiology results, the need for outpatient follow up, to return to the emergency department if symptoms worsen or persist or if there are any questions or concerns that arise at home. Response to treatment: the patient's symptoms have mildly improved after treatment, and as a result, I will discharge patient. Special discussion: Based on the patient's Hx, exam, and Dx evaluation, there is no indication for emergent surgery or inpatient Tx. It is understood by the patient/guardian that if the Sx's persist or worsen they need to return immediately for re-evaluation. I discussed with the patient/guardian in detail that at this point there is no indication for admission to the hospital. It is understood, however, that if the symptoms persist or worsen the patient needs to return immediately for re-evaluation. ED course: Patient sleeping comfortably, will DC home with PCP follow-up.. 11/16 09:48 Order name: Basic Metabolic Panel; Complete Time: 10:44 rn 11/16 09:48 Order name: CBC with Diff; Complete Time: 10:20 rn 11/16 09:48 Order name: Hepatic Function; Complete Time: 10:44 rn 11/16 09:48 Order name: Lipase; Complete Time: 10:44 rn 11/16 09:48 Order name: CT Abd/Pelvis - Without Contrast; Complete Time: 10:20 rn 11/16 09:48 Order name: IV Saline Lock; Complete Time: 09:59 rn 11/16 09:48 Order name: Labs collected and sent; Complete Time: 09:59 rn Administered Medications: :59 Drug: GI Cocktail without - (Maalox Suspension 30 ml, Lidocaine Liquid 2 % 15 ph ml) Route: PO; 10:37 Follow up: Response: No adverse reaction ph 10:37 Drug: cloNIDine 0.1 mg Route: PO; ph 11:34 Follow up: Response: No adverse reaction ph 11:20 Drug: Lasix (furosemide) 40 mg Route: IVP; Site: right antecubital; ph 11:34 Follow up: Response: No adverse reaction ph Disposition Summary: 11/16/20 11:10 Discharge Ordered Location: Home rn Problem: new rn Symptoms: have improved rn Condition: Stable rn Diagnosis - Hypertension rn - Chronic kidney disease, unspecified rn - Upper abdominal pain, unspecified rn Followup: rn - With: Private Physician - When: As needed - Reason: Recheck today's complaints, Re-evaluation by your physician Discharge Instructions: - Discharge Summary Sheet rn - Abdominal Pain, Adult rn - Hypertension, Adult rn - Chronic Kidney Disease, Adult rn - Pain Without a Known Cause rn Forms: - Medication Reconciliation Form rn - Thank You Letter rn - Antibiotic yarn tester - Prescription Opioid Use rn Prescriptions: - Lasix 40 mg Oral Tablet - take 1 tablet by ORAL route once daily for 30 days; 30 tablet; Refills: 0, rn Product Selection Permitted - Norvasc 5 mg Oral Tablet - take 1 tablet by ORAL route once daily; 30 tablet; Refills: 0, Product rn Selection Permitted Signatures: Dispatcher [employer] Dinesh Montalvo MD MD rn Smirch, Shelby, RN RN Shari Salazar RN RN ph
[2020-11-17 20:52] VITALS: O2SAT 98
[2020-11-17 20:58] VITALS: BP 192/86; TEMP 97.5
== END 2020-11-16 11:35 | disposition home or self-care (01) ==
LOC: ER 09:25
DX: R10.10 Upper abdominal pain, unspecified (principal); I12.9 Hypertensive chronic kidney disease with stage 1 through stage 4 chronic kidney disease, or unspecified chronic kidney disease; N18.9 Chronic kidney disease, unspecified; E11.22 Type 2 diabetes mellitus with diabetic chronic kidney disease; E78.5 Hyperlipidemia, unspecified; Z79.84 Long term (current) use of oral hypoglycemic drugs
CPT/HCPCS: 36415; 74176; 80048; 80076; 83690; 85025; J1940

== ENCOUNTER 2020-11-16 19:09 | Inpatient (IN) | payer OTHER ==
--- OUTSIDE RECORDS SUMMARY | 2020-11-16 19:13 | XMS REPORT | Continuity of Care Document ---
:1945 Author Organization [facility] t Address [address] [place] [address] Care Team Providers Name Role Phone Unavailable [...] Clinicians Facility Department ID 2020-09-02 2020-09-02 Outpatient [facility] [id number] 2020-08-09 2020-08-09 Outpatient [facility] [id number] [facility] 2020-08-03 2020-08-03 Outpatient [facility] [id number] [facility] Results This patient has no known results.
--- NOTE | 2020-11-16 20:13 | RAD REPORT ---
EXAM DESCRIPTION: CT - Head Brain Wo Cont - 11/16/2020 8:03 pm CLINICAL HISTORY: Hypertension Headache, drowsiness COMPARISON: HEAD BRAIN W O CONTRAST dated 10/11/2013; HEAD BRAIN W O CONTRAST dated 12/30/2011 TECHNIQUE: All CT scans are performed using dose optimization technique as appropriate and may inclu de automated exposure control or mA/KV adjustment according to patient size. 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 The paranasal sinuses and mastoids are clear. The calvarium is intact. IMPRESSION: No acute intracranial abnormality.
--- NOTE | 2020-11-16 21:56 | RAD REPORT ---
EXAM DESCRIPTION: RAD - Chest Single View - 11/16/2020 9:36 pm CLINICAL HISTORY: elevated bp Chest pain. COMPARISON: Chest Single View dated 08/07/2020; Chest Single View dated 04/28/2020; Chest Single View d ated 12/15/2015; CHEST SINGLE VIEW dated 12/30/2011 FINDINGS: Portable technique limits examination quality. Mild to moderate pulmonary edema is noted. Small right and small to moderate left pleural effusion is present. The heart is moderately enlarged in size. No displaced fractures. IMPRESSION: Mild to moderate CHF.
[2020-11-16] MEDS ORDERED: cloNIDine HCL 0.1 MG TAB ONE (22:14)
[2020-11-16 22:17] LABS: Absolute Lymphocytes (CBC) 2.2 K/uL (0.7-4.9); Basophils % 1.4 % (0-1.3); Hematocrit 27.5 % (39.6-49.0); MPV 9.2 fL (7.6-11.3); RBC Red Blood Cell Count 3.01 M/uL (4.33-5.43)
[2020-11-16 22:22] LABS: Protime INR 1.09
[2020-11-16 22:41] LABS: Albumin 3.3 g/dL (3.4-5.0); Bilirubin Direct 0.1 mg/dL (0-0.2); Bilirubin Total 0.7 mg/dL (0.2-1.0); Magnesium 2.5 mg/dL (1.8-2.4); Potassium 3.8 mmol/L (3.5-5.1); Protein, Total 7.3 g/dL (6.4-8.2); Troponin (Emerg Dept Use Only) 0.12 ng/mL (0.0-0.045)
[2020-11-16] MEDS ORDERED: LABETALOL HCL 100 MG/20 ML ONE (23:25)
[2020-11-16] MEDS ORDERED: FUROSEMIDE 20 MG/ 2ML VIAL ONE (23:25)
--- NOTE | 2020-11-16 23:39 | ER ---
Nurse's Notes [facility] Name: Roscoe Urias Age: 75 yrs Sex: Male : 1945 Arrival Date: 11/16/2020 Time: 19:13 Bed 18 Private MD: Diagnosis: Hypertensive heart disease with heart failure;Subsequent non-ST elevation (NSTEMI) myocardial infarction Presentation: 11/16 19:26 Chief complaint: Patient states: Pt was seen in the ER this morning for high B/P and kg discharged received B/P meds but blood pressure went higher. Coronavirus screen: Client denies travel out of the [place] in the last 14 days. At this time, unable to obtain information related to travel outside the [place] At this time, the client does not indicate any symptoms associated with coronavirus-19. Ebola Screen: Patient negative for fever greater than or equal to 101.5 degrees Fahrenheit, and additional compatible Ebola Virus Disease symptoms Patient denies exposure to infectious person. Patient denies travel to an Ebola-affected area in the 21 days before illness onset. 19:26 Method Of Arrival: Wheelchair kg 19:47 Initial Sepsis Screen: Does the patient meet any 2 criteria? No. Patient's initial kg sepsis screen is negative. Does the patient have a suspected source of infection? No. Patient's initial sepsis screen is negative. Risk Assessment: Do you want to hurt yourself or someone else? Patient reports no desire to harm self or others. Onset of symptoms was November 16, 2020. 19:47 Acuity: RUBEN 3 kg Historical: - Allergies: 19:48 No Known Allergies; kg - Home Meds: 19:48 Lasix 40 mg Oral tab 1 tab once daily [Active]; Norvasc 5 mg Oral tab 1 tab once daily kg [Active]; - PMHx: 19:48 Diabetes; Hyperlipidemia; Hypertension; kg - PSHx: 19:48 None; kg - Immunization history:: Adult Immunizations not up to date, Client reports having NOT received the Covid vaccine. - Social history:: Smoking status: Patient denies any tobacco usage or history of. Vital Signs: 19:26 BP 198 / 56; Pulse 61; Resp 20; Temp 98.4(TE); Pulse Ox 99% on R/A; Weight 74.84 kg; kg Height 5 ft. 8 in. (172.72 cm); Pain 0/10; 19:26 Body Mass Index 25.09 (74.84 kg, 172.72 cm) kg ED Course: 19:13 Patient arrived in ED. cf2 19:48 Triage completed. kg 20:03 CT Head Brain wo Cont In Process Unspecified. EDMS 20:48 Ayesha Coreas MD is Attending Physician. ma2 21:03 Melva Melton, RAJESH is Primary Nurse. bs2 21:36 XRAY Chest (1 view) In Process Unspecified. EDMS 22:32 Liver (Hepatic) Function Sent. bs2 22:32 Basic Metabolic Panel Sent. bs2 22:32 Basic Metabolic Panel Sent. bs2 22:32 CBC with Diff Sent. bs2 22:32 LFT's Sent. bs2 22:33 Magnesium Sent. bs2 22:33 NT PRO-BNP Sent. bs2 22:33 Troponin (emerg Dept Use Only) Sent. bs2 23:38 Macario Blackburn is Hospitalizing Provider. ia2 11/17 07:14 Primary Nurse role handed off by Melva eMlton RN bd Administered Medications: 11/16 22:03 Drug: cloNIDine 0.1 mg Route: PO; bs2 23:18 CANCELLED (medication changee): Labetalol 10 mg IVP once bs2 23:18 Drug: Lasix (furosemide) 20 mg Route: IVP; Site: right forearm; bs2 23:26 Drug: hydrALAZINE 10 mg Route: IVP; Site: right forearm; bs2 11/17 01:00 Drug: hydrALAZINE 10 mg Route: IVP; Site: right antecubital; bs2 Outcome: 11/16 23:38 Decision to Hospitalize by Provider. ia2 11/17 21:20 Patient left the ED. tt3 Signatures: Dispatcher [employer] EDMS Roselyn Lau bd Ayesha Coreas MD MD ma2 Humphrey Brewster cf2 Harley Ba tt3 Tiara Lim RN RN kg Melva Melton RN RN bs2
--- NOTE | 2020-11-16 23:39 | EDPHYS ---
Physician Documentation [facility] Name: Roscoe Urias Age: 75 yrs Sex: Male : 1945 Arrival Date: 11/16/2020 Time: 19:13 Bed 18 Private MD: ED Physician Ayesha Coreas HPI: 11/16 21:27 This 75 yrs old Male presents to ER via Wheelchair with complaints of High ma2 Blood Pressure, took meds at 1pm BP got higher. 21:27 Onset: The symptoms/episode began/occurred gradually, 2 week(s) ago. Associated signs ma2 and symptoms: Pertinent negatives: dizziness, nausea, visual changes. Severity of symptoms: At its worst the blood pressure was 200 mm Hg, in the emergency department the blood pressure is unchanged. The patient has experienced similar episodes in the past. Patient has hypertension, does not take any medicine for it, he was here for epigastric pain blood pressure was high, he was prescribed amlodipine 5 mg daily, he failed amlodipine, went home and checked his blood pressure it was 200/100, he took 1 pill of amlodipine, however blood pressure did not change. So he decided to come back to the ER. Of note he has chronic hypertension, does not take any medicines, does not take any medicine for any chronic health issues.. He does not have a primary care doctor. He only come to ER for his medical needs. At this time he does not have any symptoms he has asymptomatic hypertension, in the setting of his chronic kidney disease.. Historical: - Allergies: 19:48 No Known Allergies; kg - Home Meds: 19:48 Lasix 40 mg Oral tab 1 tab once daily [Active]; Norvasc 5 mg Oral tab 1 tab once daily kg [Active]; - PMHx: 19:48 Diabetes; Hyperlipidemia; Hypertension; kg - PSHx: 19:48 None; kg - Immunization history:: Adult Immunizations not up to date, Client reports having NOT received the Covid vaccine. - Social history:: Smoking status: Patient denies any tobacco usage or history of. ROS: 21:27 Constitutional: Negative for fever, chills, and weight loss. ma2 21:27 All other systems are negative. Exam: 21:27 Constitutional: This is a well developed, well nourished patient who is awake, alert, ma2 and in no acute distress. Head/Face: Normocephalic, atraumatic. Eyes: Pupils equal round and reactive to light, extra-ocular motions intact. Lids and lashes normal. Conjunctiva and sclera are non-icteric and not injected. Cornea within normal limits. Periorbital areas with no swelling, redness, or edema. ENT: Nares patent. No nasal discharge, no septal abnormalities noted. Tympanic membranes are normal and external auditory canals are clear. Oropharynx with no redness, swelling, or masses, exudates, or evidence of obstruction, uvula midline. Mucous membranes moist. Neck: Trachea midline, no thyromegaly or masses palpated, and no cervical lymphadenopathy. Supple, full range of motion without nuchal rigidity, or vertebral point tenderness. No Meningismus. Chest/axilla: Normal chest wall appearance and motion. Nontender with no deformity. No lesions are appreciated. Cardiovascular: Regular rate and rhythm with a normal S1 and S2. No gallops, murmurs, or rubs. Normal PMI, no JVD. No pulse deficits. Respiratory: Lungs have equal breath sounds bilaterally, clear to auscultation and percussion. No rales, rhonchi or wheezes noted. No increased work of breathing, no retractions or nasal flaring. Abdomen/GI: Soft, non-tender, with normal bowel sounds. No distension or tympany. No guarding or rebound. No evidence of tenderness throughout. Skin: Warm, dry with normal turgor. Normal color with no rashes, no lesions, and no evidence of cellulitis. MS/ Extremity: Pulses equal, no cyanosis. Neurovascular intact. Full, normal range of motion. Neuro: Awake and alert, GCS 15, oriented to person, place, time, and situation. Cranial nerves II-XII grossly intact. Motor strength 5/5 in all extremities. Sensory grossly intact. Cerebellar exam normal. Normal gait. Vital Signs: 19:26 BP 198 / 56; Pulse 61; Resp 20; Temp 98.4(TE); Pulse Ox 99% on R/A; Weight 74.84 kg; kg Height 5 ft. 8 in. (172.72 cm); Pain 0/10; 19:26 Body Mass Index 25.09 (74.84 kg, 172.72 cm) kg MDM: 20:48 Patient medically screened. [facility] 21:27 Differential diagnosis: Asymptomatic hypertension, essential hypertension, versus az2 secondary hypertension due to CKD, will check for end organ damage, if not will lower blood pressure he needs to follow-up with a primary care doctor and I had a detailed discussion about that with him. 23:37 Data reviewed: vital signs, nurses notes. Counseling: I had a detailed discussion with [facility] the patient and/or guardian regarding: the historical points, exam findings, and any diagnostic results supporting the discharge/admit diagnosis, the presence of at least one elevated blood pressure reading (>120/80) during this emergency department visit, the need for further work-up and treatment in the hospital. Response to treatment: the patient's symptoms have markedly improved after treatment. 11/16 20:49 Order name: Basic Metabolic Panel [facility] 11/16 20:49 Order name: CBC with Diff [facility] 11/16 20:49 Order name: LFT's [facility] 11/16 20:49 Order name: Magnesium; Complete Time: 22:58 [facility] 11/16 20:49 Order name: NT PRO-BNP; Complete Time: 22:58 [facility] 11/16 20:49 Order name: PT-INR; Complete Time: 22:40 [facility] 11/16 20:49 Order name: Troponin (emerg Dept Use Only); Complete Time: 22:58 [facility] 11/16 20:50 Order name: Basic Metabolic Panel; Complete Time: 22:58 [facility] 11/16 20:50 Order name: CBC with Automated Diff; Complete Time: 22:40 [facility] 11/16 20:50 Order name: Liver (Hepatic) Function; Complete Time: 22:58 [facility] 11/17 01:28 Order name: SARS-COV-2 RT PCR [facility] 11/17 03:12 Order name: CBC with Automated Diff [facility] 11/17 03:20 Order name: Troponin I [facility] 11/17 03:57 Order name: Comprehensive Metabolic Panel [facility] 11/17 03:57 Order name: Phosphorus [facility] 11/17 03:57 Order name: Lipid Profile [facility] 11/17 03:57 Order name: T4 Free [facility] 11/17 03:57 Order name: Magnesium [facility] 11/17 03:57 Order name: Thyroid Stimulating Hormone [facility] 11/17 03:57 Order name: Transferrin Sat/Iron Binding [facility] 11/17 03:57 Order name: Ferritin [facility] 11/17 03:57 Order name: Folic Acid, (Folate) [facility] 11/17 03:57 Order name: Vitamin B12 Level [facility] 11/17 07:28 Order name: Troponin I [facility] 11/17 13:15 Order name: Transferrin Sat/Iron Binding [facility] 11/17 13:15 Order name: Ferritin [facility] 11/17 13:27 Order name: Vitamin D, 25 ([place]), TOTAL [facility] 11/17 13:43 Order name: PTH Intact [facility] 11/17 14:05 Order name: UR SODIUM [facility] 11/16 19:35 Order name: CT Head Brain wo Cont; Complete Time: 20:48 kg 11/16 20:49 Order name: XRAY Chest (1 view); Complete Time: 22:40 ma2 11/16 20:49 Order name: EKG; Complete Time: 20:50 ma2 11/16 20:49 Order name: Cardiac monitoring; Complete Time: 22:32 ma2 11/16 20:49 Order name: EKG - Nurse/Tech; Complete Time: 22:32 ma2 11/16 20:49 Order name: IV Saline Lock; Complete Time: 22:32 ma2 11/16 20:49 Order name: Labs collected and sent; Complete Time: 22:32 ma2 11/16 20:49 Order name: O2 Per Protocol; Complete Time: 22:32 ma2 11/16 20:49 Order name: O2 Sat Monitoring; Complete Time: 22:32 ma2 11/16 23:55 Order name: CONS Physician Consult [facility] 11/17 08:48 Order name: US [facility] 11/17 14:05 Order name: UR POTASSIUM [facility] 11/17 14:12 Order name: Ur Protein [facility] 11/17 14:56 Order name: Urinalysis W/Microscopic [facility] 11/17 15:29 Order name: Osmolality, Urine [facility] Administered Medications: 22:03 Drug: cloNIDine 0.1 mg Route: PO; bs2 23:18 CANCELLED (medication changee): Labetalol 10 mg IVP once bs2 23:18 Drug: Lasix (furosemide) 20 mg Route: IVP; Site: right forearm; bs2 23:26 Drug: hydrALAZINE 10 mg Route: IVP; Site: right forearm; bs2 11/17 01:00 Drug: hydrALAZINE 10 mg Route: IVP; Site: right antecubital; bs2 Disposition Summary: 11/16/20 23:38 Hospitalization Ordered Hospitalization Status: Inpatient Admission ma2 Provider: Macario Blackburn maObed Condition: Stable ma2 Problem: new ma2 Symptoms: are unchanged ma2 Bed/Room Type: Standard [facility] Location: Telemetry/MedSurg (Inpatient)(11/17/20 17:46) Room Assignment: [facility](11/17/20 17:46) Diagnosis - Hypertensive heart disease with heart failure ma2 - Subsequent non-ST elevation (NSTEMI) myocardial infarction ma2 Discharge Instructions: - Discharge Summary Sheet ma2 Forms: - Medication Reconciliation Form ma2 - SBAR form ma2 Prescriptions: - clonidine HCl 0.1 mg Oral tablet - take 1 tablet by ORAL route as directed for 8-10 days Check your blood pressure ma2 before taking this medicine. This is an as needed medicine only. Take 1 tablet once a day, as needed for blood pressure more than 150/90; 15 tablet; Refills: 0, Product Selection Permitted Signatures: Dispatcher [employer] EDWI Roselyn Lau Cindy, RN RN cg Alzahri, Mohammad, MD MD ma2 Tiara Lim RN RN kg Melva Melton RN RN bs2 Corrections: (The following items were deleted from the chart) 11/16 23:18 22:59 Labetalol 10 mg IVP once ordered. az2 bs2 23:56 23:28 CORONAVIRUS+MR.LAB.BRZ [facility]. [facility] 11/16 23:38 Telemetry/MedSurg (Inpatient) [facility] 11/17 00:45 11/16 23:38 [facility] 11/17 17:46 00:45 [facility] ER HOLD cg bd 17:46 00:45 ERHOLD- cg bd
[2020-11-16] MEDS ORDERED: HYDRALAZINE HCL 20 MG/ML VIAL ONE (23:43)
[2020-11-17] MEDS ORDERED: HYDRALAZINE HCL 20 MG/ML VIAL ONE ×2 (01:12→17:27)
--- NOTE | 2020-11-17 01:51 | P.HP ---
Certification for Inpatient Patient admitted to: Inpatient With expected LOS: >2 Midnights Patient will require the following post-hospital care: None Practitioner: I am a practitioner with admitting privileges, knowledge of patient current condition, hospital course, and medical plan of care. Services: Services provided to patient in accordance with Admission requirements found in Title 42 Section 412.3 of the Code of Federal Regulations Patient History Date of Service: 11/16/20 Reason for admission: hypertensive emergency History of Present Illness: Mr. Urias is a 75 yo M with history of CAD who presents today for elevated blood pressure this morning. also reports that he has been feeling weak. In April, he was discharged from the hospital with diagnosis of NSTEMI and CKD. Cath not done at that time due to poor kidney function. Discharged on ASA, plavix, atorvastatin, lasix, hydralazine, metoprolol, and nifedipine. He has not taken any of these medications since discharge. He has not followed up with nephrology or cardiology. He does not have a primary care doctor. CT head was within normal limits. CXR shows mild to moderate CHF and bilateral pleural effusions. BUN 54, Cr 5.13, GFR 11. Trop 0.12. BNP 10849. Allergies No Known Allergies Allergy (Verified 08/09/20 11:02) Home Medications: Metformin HCl [Glucophage XR OR ER] 500 mg PO BID 12/30/11 glipiZIDE [Glucotrol*] 5 mg PO BID #60 tab 10/14/13 Amlodipine [Norvasc*] 10 mg PO DAILY #30 tab 12/18/15 Aspirin [Aspirin EC 325 MG] 325 mg PO DAILY #30 tablet. 12/18/15 Metoprolol Tartrate [Lopressor*] 50 mg PO BID #60 tab 12/18/15 Aspirin [Aspirin EC 81 MG] 81 mg PO DAILY 30 Days #30 tablet. 04/30/20 Atorvastatin Calcium [Lipitor] 40 mg PO BEDTIME 30 Days #30 tab 04/30/20 Calcitrol [Rocaltrol*] 0.25 mcg PO Q48H 30 Days #15 cap 04/30/20 Clopidogrel Bisulfate [Plavix] 75 mg PO DAILY 30 Days #30 tablet 04/30/20 Furosemide [Lasix*] 40 mg PO BIDL 30 Days #60 tab 04/30/20 Hydralazine [Apresoline*] 100 mg PO TID 30 Days #90 tab 04/30/20 Metoprolol Tartrate [Lopressor] 25 mg PO BID 30 Days #60 tab 04/30/20 NIFEdipine [Nifedipine ER] 60 mg PO DAILY 30 Days #30 tab.er.24 04/30/20 - Past Medical/Surgical History Diabetic: Yes -: hypertension -: hyperlipidemia -: NIDDM -: CVA -: NSTEMI 04/2020 -: Appendectomy Psychosocial/ Personal History: Patient lives with family - Social History Smoking Status: Never smoker Alcohol use: No CD- Drugs: No Caffeine use: Yes Place of Residence: Home Review of Systems 10-point ROS is otherwise unremarkable General: Weakness Physical Examination - Physical Exam General: Alert, In no apparent distress HEENT: Atraumatic, PERRLA, Mucous membr. moist/pink, EOMI, Sclerae nonicteric Neck: Supple, No LAD Respiratory: Diminished, Crackles/rales Cardiovascular: Regular rate/rhythm, Normal S1 S2, Edema Gastrointestinal: Normal bowel sounds, No tenderness Musculoskeletal: No tenderness Integumentary: No rashes Neurological: Normal speech, Normal strength at 5/5 x4 extr, Normal tone, Normal affect Lymphatics: No axilla or inguinal lymphadenopathy - Studies Laboratory Data (last 24 hrs) 11/16/20 22:00: PT 12.6 H, INR 1.09 11/16/20 22:00: WBC 11.10 H, Hgb 9.2 L, Hct 27.5 L, Plt Count 222 11/16/20 22:00: Sodium 140, Potassium 3.8, BUN 54 H, Creatinine 5.13 H*, Glucose 96, Magnesium 2.5 H, Total Bilirubin 0.7, AST 21, ALT 16, Alkaline Phosphatase 75 Assessment and Plan - Problems (Diagnosis) (1) CAD (coronary artery disease) Current Visit: Yes Status: Chronic Qualifiers: Coronary Disease-Associated Artery/Lesion type: unspecified vessel or lesion type [place] vs. transplanted heart: [place] heart Associated angina: without angina Qualified Code(s): I25.10 - Atherosclerotic heart disease of [place] coronary artery without angina pectoris (2) NSTEMI (non-ST elevated myocardial infarction) Current Visit: Yes Status: Chronic (3) CKD (chronic kidney disease) Current Visit: Yes Status: Chronic Qualifiers: Chronic kidney disease stage: stage 5, not on chronic dialysis Qualified Code(s): N18.5 - Chronic kidney disease, stage 5 (4) Hypertensive emergency Current Visit: Yes Status: Acute (5) CHF (congestive heart failure) Current Visit: Yes Status: Chronic Qualifiers: Heart failure type: unspecified Heart failure chronicity: acute on chronic Qualified Code(s): I50.9 - Heart failure, unspecified (6) Hypertension Current Visit: No Status: Chronic Qualifiers: Hypertension type: primary hypertension Qualified Code(s): I10 - Essential (primary) hypertension - Plan cardiology consulted, nephrology consulted trend troponins, ECHO pending, repeat EKG, on telemetry continue IV lasix, PRN hydralazine start daily atorvastatin, hydralazine, nifedipine. will hold metoprolol due to bradycardia. fluid restrict, daily weights anemia workup pending renal diet, dietitian consulted SCDs Discharge Plan: Home Plan to discharge in: 48 Hours - Advance Directives Does patient have a Living Will: No Does patient have a Durable POA for Healthcare: No - Code Status/Comfort Care Code Status Assessed: Yes (full code ) Critical Care: No Time Spent Managing Pts Care (In Minutes): 70
[2020-11-17] MEDS ORDERED: ACETAMINOPHEN 500 MG TAB PO PRN (02:19)
[2020-11-17] MEDS ORDERED: ONDANSETRON 4 MG/2 ML VIAL IV PRN (02:19)
[2020-11-17 02:47] LABS: Basophils % 1.3 % (0-1.3); Hematocrit 26.7 % (39.6-49.0); Lymphocytes % 19.7 % (15.3-44.8); MPV 8.9 fL (7.6-11.3); RBC Red Blood Cell Count 2.94 M/uL (4.33-5.43)
[2020-11-17] MEDS ORDERED: NIFEDIPINE XL 60 MG TABLET PO ONE (03:00)
[2020-11-17] MEDS ORDERED: NIFEdipine 10 MG CAP ONE (03:04)
[2020-11-17 03:54] LABS: Albumin 2.9 g/dL (3.4-5.0); Bilirubin Total 0.8 mg/dL (0.2-1.0); Ferritin 29.9 ng/mL (26-388); Folic Acid, (Folate) 10.8 ng/mL (3.1-17.5); Magnesium 2.5 mg/dL (1.8-2.4); Phosphorus 4.6 mg/dL (2.5-4.9); Potassium 3.9 mmol/L (3.5-5.1); Protein, Total 6.6 g/dL (6.4-8.2); Thyroid Stimulating Hormone 2.35 uIU/mL (0.360-3.740)
[2020-11-17] MEDS ORDERED: FAMOTIDINE 20 MG TAB ONE (05:34)
[2020-11-17] MEDS: FAMOTIDINE 20 MG TAB PO SCH (05:46)
--- NOTE | 2020-11-17 06:24 | P.CNS ---
Date of Consult: 11/17/20 Reason for Consult: Renal failure Requesting Physician: isma mederos Chief Complaint: hypertensive emergency History of Present Illness: 75 yo chinese-speaking man w/ PMHx of CKD 4-5, Htn, anemia, renal osteodystrophy, & CAD s/p NSTEMI who p/w gen weakness & elevated BP. He is not followed by any clinical review specialist as outpt. He was noted to have accelerated Htn w/ pulmo edema on CXR w/ elevated BNP & GFR currently at 11 ml/min. Allergies No Known Allergies Allergy (Verified 08/09/20 11:02) Home Medications: Amlodipine [Norvasc*] 5 mg PO DAILY 11/17/20 Furosemide 40 mg PO DAILY 11/17/20 - Past Medical/Surgical History Diabetic: Yes -: hypertension -: hyperlipidemia -: NIDDM -: CVA -: NSTEMI 04/2020 -: Appendectomy Psychosocial/ Personal History: Patient lives with family - Social History Smoking Status: Never smoker Alcohol use: No CD- Drugs: No Caffeine use: Yes Place of Residence: Home Review of Systems General: Weakness Eyes: Unremarkable ENT: Unremarkable Respiratory: Unremarkable Cardiovascular: Unremarkable Gastrointestinal: Unremarkable Genitourinary: Unremarkable Musculoskeletal: Unremarkable Integumentary: Unremarkable Neurological: Unremarkable Lymphatics: Unremarkable Physical Examination Temp Pulse Resp BP Pulse Ox 59 192/69 H 11/17/20 02:45 11/17/20 02:45 General: Other (appears as his stated age) HEENT: Atraumatic, Normocephalic Neck: Supple, JVD not distended Respiratory: Crackles/rales Cardiovascular: No rubs, No murmurs Gastrointestinal: Soft and benign, Non-distended Musculoskeletal: No clubbing, No swelling Integumentary: No warmth Neurological: Normal tone Lymphatics: No axilla or inguinal lymphadenopathy Urinary: Other (No bladder distention) External genitalia: Deferred Rectal: Deferred Laboratory Data (last 24 hrs) 11/16/20 22:00: PT 12.6 H, INR 1.09 11/16/20 22:00: WBC 11.10 H, Hgb 9.2 L, Hct 27.5 L, Plt Count 222 11/16/20 22:00: Sodium 140, Potassium 3.8, BUN 54 H, Creatinine 5.13 H*, Glucose 96, Magnesium 2.5 H, Total Bilirubin 0.7, AST 21, ALT 16, Alkaline Phosphatase 75 Conclusions/Impression: # CKD 4-5 Renal US showed advanced CKD changes F/u urine chem, random UPCR, iPTH, 25OHD No acute indication for Renal diet Monitor renal panel # Htn Start amlodipine 5 mg po daily Start lasix 20 mg po bid # CAD s/p NSTEMI Cont cardioprudent meds # Pulmo edema 2/2 accelerated Htn Give lasix 40 mg IV x 1, then 20 mg po bid Low Na/renal diet Do NOT limit free water intake unless he develops hyponatremia # Anemia F/u iron panel # Renal osteodystrophy Monitor Ca & Phos F/u serum iPTH & 25OHD # Metabolic acidosis Start oral bicarb 650 mg po bid # DM2 Mngt per primary team
--- NOTE | 2020-11-17 08:47 | RAD REPORT ---
EXAM DESCRIPTION: US - Renal Ultrasound-Complete - 11/17/2020 7:53 am CLINICAL HISTORY: assess for hydronephrosis, pyelo, advanced CKD Flank pain COMPARISON: Renal Ultrasound-Complete dated 04/28/2020 FINDINGS: Both kidneys are normal in size, shape and echotexture. The right kidney measures 9.7 x 5.1 x 4.9 cm. No hydronephrosis, focal mass or perinephric fluid. The left kidney measures 8.2 x 5.8 x 4.5 cm. No hydronephrosis, focal mass or perinephric fluid. The urinary bladder is incompletely distended without gross abnormality seen. IMPRESSION: Unremarkable renal sonogram.
[2020-11-17] MEDS ORDERED: FAMOTIDINE 20 MG TAB PO SCH (09:00)
[2020-11-17] MEDS ORDERED: NIFEDIPINE XL 60 MG TABLET PO SCH (09:00)
[2020-11-17] MEDS ORDERED: HYDRALAZINE HCL 25 MG TABLET PO SCH (09:00)
[2020-11-17] MEDS ORDERED: FUROSEMIDE 20 MG/ 2ML VIAL IV SCH (09:00)
[2020-11-17] MEDS ORDERED: FUROSEMIDE 40 MG/4 ML VIAL IV ONE (10:55)
[2020-11-17] MEDS: FUROSEMIDE 20 MG TABLET PO SCH ×2 (11:00→17:00)
[2020-11-17] MEDS ORDERED: AMLODIPINE 5 MG TAB PO SCH (11:00)
[2020-11-17] MEDS ORDERED: FUROSEMIDE 20 MG TABLET ONE ×2 (12:28→17:13)
[2020-11-17] MEDS ORDERED: AMLODIPINE 5 MG TAB ONE (12:28)
[2020-11-17] MEDS ORDERED: FUROSEMIDE 40 MG/4 ML VIAL ONE (12:29)
[2020-11-17 13:14] LABS: Ferritin 32.9 ng/mL (26-388)
[2020-11-17 14:11] LABS: Urine Protein/Creatinine Ratio 2.94 ratio (<0.15)
[2020-11-17 14:49] LABS: Urine Appearance CLEAR (Clear); Urine Bilirubin NEGATIVE (Negative); Urine Blood NEGATIVE (Negative); Urine Color YELLOW (Yellow); Urine Glucose NEGATIVE (Negative); Urine Protein 3+ (Negative); Urine Urobilinogen 0.2 mg/dL (0.2-1.0); Urine pH 5.5 (5.0-7.0)
[2020-11-17 15:20] LABS: Urine Bacteria <20 /HPF (NONE SEEN); Urine RBC <5 /HPF (NONE SEEN)
--- NOTE | 2020-11-17 15:47 | P.PN ---
Subjective Date of Service: 11/17/20 Chief Complaint: hypertensive emergency Patient presented with a complaint of high blood pressure. Blood pressure has improved. Currently has no complain. Troponin mildly elevated but trended flat. Physical Examination - Vital Signs Temperature: 97.7 F Blood Pressure: 149/41 Pulse: 72 Respirations: 19 Pulse Ox (%): 97 - Physical Exam General: Alert, In no apparent distress, Oriented x3 HEENT: Mucous membr. moist/pink Neck: JVD not distended Respiratory: Clear to auscultation bilaterally, Normal air movement Cardiovascular: No edema, Regular rate/rhythm, Normal S1 S2 Gastrointestinal: Normal bowel sounds, Soft and benign, Non-distended, No tenderness Musculoskeletal: No swelling, No erythema Integumentary: No rashes Neurological: Normal strength at 5/5 x4 extr - Studies Laboratory Data (last 24 hrs) 11/16/20 22:00: PT 12.6 H, INR 1.09 11/16/20 22:00: WBC 11.10 H, Hgb 9.2 L, Hct 27.5 L, Plt Count 222 11/16/20 22:00: Sodium 140, Potassium 3.8, BUN 54 H, Creatinine 5.13 H*, Glucose 96, Magnesium 2.5 H, Total Bilirubin 0.7, AST 21, ALT 16, Alkaline Phosphatase 75 Assessment And Plan - Current Problems (Diagnosis) (1) Elevated troponin Current Visit: Yes Status: Acute (2) Chronic kidney disease, stage 4 (severe) Current Visit: Yes Status: Acute (3) Hypertensive emergency Current Visit: Yes Status: Acute (4) Diabetes mellitus Current Visit: No Status: Chronic Qualifiers: Diabetes mellitus type: type 2 Diabetes mellitus nursing home insulin use: with adjunct faculty for medical terminology use Diabetes mellitus complication status: without complication Qualified Code(s): E11.9 - Type 2 diabetes mellitus without complications (5) Acute diastolic heart failure Current Visit: Yes Status: Acute - Plan Troponin trended flat. Elevated troponin likely secondary to kidney disease. Patient has no chest pain. Blood pressure readings have improved. Patient seen by nephrology. Renal ultrasound: Chronic kidney disease. Patient is getting IV Lasix for diastolic heart failure. Awaiting cardiology input. Patient with a history of noncompliance. Positive she nuclear stress test about 6 months ago. Start aspirin and Plavix. Statins. Resume amlodipine at 10 mg daily. Cannot start beta-nickie due to bradycardia.
[2020-11-17] MEDS: HYDRALAZINE HCL 20 MG/ML VIAL IV PRN (17:08)
[2020-11-17] MEDS ORDERED: ATORVASTATIN 20 MG TAB ONE (20:17)
[2020-11-17] MEDS: SODIUM BICARB 325 MG TAB PO SCH (20:51)
[2020-11-17] MEDS: ATORVASTATIN 40 MG TAB PO SCH (20:51)
[2020-11-18] MEDS: HYDRALAZINE HCL 20 MG/ML VIAL IV PRN ×4 (00:14→15:48)
[2020-11-18 04:15] LABS: Absolute Lymphocytes (CBC) 2.1 K/uL (0.7-4.9); Basophils % 2.6 % (0-1.3); Hematocrit 25.4 % (39.6-49.0); Lymphocytes % 23.5 % (15.3-44.8); MPV 8.8 fL (7.6-11.3); RBC Red Blood Cell Count 2.79 M/uL (4.33-5.43)
[2020-11-18 04:44] LABS: Albumin 2.7 g/dL (3.4-5.0); Magnesium 2.4 mg/dL (1.8-2.4); Phosphorus 4.9 mg/dL (2.5-4.9)
[2020-11-18 04:51] LABS: Potassium 3.7 mmol/L (3.5-5.1)
--- NOTE | 2020-11-18 06:11 | P.PN ---
Subjective Date of Service: 11/18/20 Chief Complaint: hypertensive emergency Denies DENNEY/CP/SOB. Physical Examination - Vital Signs Temperature: 98.4 F Blood Pressure: 198/84 Pulse: 71 Respirations: 16 Pulse Ox (%): 98 - Physical Exam General: In no apparent distress HEENT: Atraumatic, Normocephalic Neck: Supple, JVD not distended Respiratory: Diminished Cardiovascular: No rubs, No murmurs Gastrointestinal: Soft and benign, Non-distended Musculoskeletal: No clubbing Integumentary: No warmth Neurological: Normal tone Urinary: Other (No bladder distention) External genitalia: Deferred Rectal: Deferred Assessment And Plan - Plan # CKD 4-5 Renal US showed advanced CKD changes +Subnephrotic proteinuria w/ random UPCR 2.9g iPTH sig elevated at 206, indicative of advanced CKD stat No acute indication for dialysis AVF planning as outpt Renal diet Monitor renal panel # 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 Start Hydralazine 100 mg po tid Start Doxazosin 2 mg po bid Cont Amlodipine 10 mg po daily Cont Furosemide 20 mg po bid # CAD s/p NSTEMI Cont cardioprudent meds # Pulmo edema 2/2 accelerated Htn Cont lasix BP control Low Na/renal diet Do NOT limit free water intake unless he develops hyponatremia # Anemia Iron panel shows iron def--> start FeSO4 po bid Retacrit 10,000 u SQ given on 11/18 Monitor H/H # Secondary hyperPTH Start calcitriol po daily Start high dose D repletion as below # Vit D deficiency Start D3 5000 u po daily Recheck serum iPTH + 25OHD level in 3 mos # Renal osteodystrophy Serum Ca & Phos at goal, monitor # Metabolic acidosis Oral bicarb 650 mg po bid # DM2 Mngt per primary team # Dispo Anticipate dc tomorrow when BP better controlled
[2020-11-18] MEDS: HYDRALAZINE HCL 25 MG TABLET PO SCH ×3 (06:33→20:11)
--- NOTE | 2020-11-18 07:31 | EKG ---
Test Date: 2020-11-17 Test Time: 09:07:46 Trade Show Manager: ALISE MEASUREMENT RESULTS: Intervals: Rate: 64 GA: 128 QRSD: 100 QT: 520 QTc: 536 [place]: P: 73 GA: 128 QRS: 37 T: 69 INTERPRETIVE STATEMENTS: Sinus rhythm with premature atrial complexes Nonspecific ST abnormality Prolonged QT Abnormal ECG Compared to ECG 11/16/2020 22:16:02 ST (T wave) deviation now present Prolonged QT interval now present Myocardial infarct finding no longer present Electronically Signed On 11-18-20 07:28:35 CDT by Dusty Glover
--- NOTE | 2020-11-18 07:33 | EKG ---
Test Date: 2020-11-16 Test Time: 22:16:02 Business Banking Representative: RAPHAEL MEASUREMENT RESULTS: Intervals: Rate: 61 MI: 120 QRSD: 104 QT: 494 QTc: 497 [place]: P: MI: 120 QRS: 18 T: 100 INTERPRETIVE STATEMENTS: Sinus rhythm with premature atrial complexes Anterolateral infarct, age undetermined Abnormal ECG Compared to ECG 08/07/2020 15:28:43 Atrial premature complex(es) now present Myocardial infarct finding now present T-wave abnormality no longer present Electronically Signed On 11-18-20 07:28:49 CDT by Dusty Glover
--- NOTE | 2020-11-18 08:05 | ECHO ---
HEIGHT: 5 ft 8 in WEIGHT: 159 lb 0 oz DATE OF STUDY: 11/17/[address]: Benny Ponce 2-DIMENSIONAL: YES M.MODE: YES DOPPLER: YES COLOR FLOW: YES TDS: NO PORTABLE: NO DEFINITY: NO BUBBLE STUDY: NO DIAGNOSIS: PLEURAL EFFUSIONS CARDIAC HISTORY: CATHERIZATION: NO SURGERY: NO PROSTHETIC VALVE: NO PACEMAKER: NO MEASUREMENTS (cm) DIASTOLIC (NORMALS) SYSTOLIC (NORMALS) IVSd 1.1 (0.6-1.2) LA Diam 3.6 (1.9-4.0) LVEF 74% LVIDd 4.9 (3.5-5.7) LVIDs 2.8 (2.0-3.5) %FS 43% LVPWd 1.2 (0.6-1.2) Ao Diam 2.6 (2.0-3.7) 2 DIMENSIONAL ASSESSMENT: RIGHT ATRIUM: NORMAL LEFT ATRIUM: NORMAL RIGHT VENTRICLE: NORMAL LEFT VENTRICLE: NORMAL TRICUSPID VALVE: NORMAL MITRAL VALVE: NORMAL PULMONIC VALVE: NORMAL AORTIC VALVE: NORMAL PERICARDIAL EFFUSION: NONE AORTIC ROOT: NORMAL LEFT VENTRICULAR WALL MOTION: NORMAL DOPPLER/COLOR FLOW: NORMAL COMMENTS: NORMAL 2D ECHOCARDIOGRAM WITH DOPPLER. NO WALL MOTION ABNORMALITY. NO EFFUSION. TECHNOLOGIST: José Manuel DEL TORO
[2020-11-18] MEDS: ASPIRIN EC 81 MG TAB PO SCH (08:07)
[2020-11-18] MEDS: AMLODIPINE 10 MG TAB PO SCH (08:07)
[2020-11-18] MEDS: CLOPIDOGREL 75 MG TABLET PO SCH (08:10)
[2020-11-18] MEDS: SODIUM BICARB 325 MG TAB PO SCH ×2 (08:10→20:11)
[2020-11-18] MEDS: FUROSEMIDE 20 MG TABLET PO SCH ×2 (08:11→18:05)
[2020-11-18] MEDS ORDERED: NIFEDIPINE XL 60 MG TABLET PO SCH (09:00)
--- NOTE | 2020-11-18 11:40 | P.PN ---
Subjective Date of Service: 11/18/20 Chief Complaint: hypertensive emergency Patient currently has no complain. Blood pressure remains severely elevated. Physical Examination - Vital Signs Temperature: 97.3 F Blood Pressure: 231/95 Pulse: 71 Respirations: 16 Pulse Ox (%): 97 - Physical Exam General: Alert, In no apparent distress HEENT: Mucous membr. moist/pink Neck: JVD not distended Respiratory: Clear to auscultation bilaterally, Normal air movement Cardiovascular: No edema, Regular rate/rhythm, Normal S1 S2 Capillary refill: <2 Seconds Gastrointestinal: Normal bowel sounds, Soft and benign, Non-distended, No tenderness Musculoskeletal: No swelling, No tenderness Integumentary: No rashes Neurological: Normal strength at 5/5 x4 extr Assessment And Plan - Current Problems (Diagnosis) (1) Elevated troponin Current Visit: Yes Status: Acute (2) Chronic kidney disease, stage 4 (severe) Current Visit: Yes Status: Acute (3) Hypertensive emergency Current Visit: Yes Status: Acute (4) Diabetes mellitus Current Visit: No Status: Chronic Qualifiers: Diabetes mellitus type: type 2 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 Elevated troponin likely secondary to kidney disease. Patient has no chest pain. Patient followed by nephrology. Renal ultrasound: Chronic kidney disease. Obtain renal artery Doppler studies to rule out renovascular hypertension. Patient is getting IV Lasix for diastolic heart failure. Cardiology input appreciated. Dr. Glover is recommending medical management Patient with a history of noncompliance. Positive she nuclear stress test about 6 months ago. Continue aspirin and Plavix. Statins. Continue Amlodipine at 10 mg daily. Hydralazine 100 mg b.i.d. added today. Hydralazine IV p.r.n. for BP spikes. Next antihypertensives to add is a beta-nickie if his heart rate would tolerate it.
--- NOTE | 2020-11-18 12:17 | CON ---
Date of Consultation: 11/17/2020 Reason For Consultation: Hypertensive urgency. History Of Present Illness: Mr. Urias is a 75-year-old. He came into the hospital basically complain ing of high blood pressure that continued to get higher. He has a history of diabetes and dyslipidem ia. Denied any chest pain. Denied any nausea, vomiting, diaphoresis, PND, orthopnea, pedal edema, p alpitations, or syncope. Has known chronic renal disease. Allergies: NONE. Medications: At home include Lasix and Norvasc. Past Medical History: As stated above. Review of Systems: Stated above. Social History: Negative. Family History: Noncontributory. Physical Examination: Vital Signs: When he came in, his blood pressure was . He was in sinus rhythm. Had hugo l pulse ox. Chest: Clear. HEENT: Negative. Cardiac: Revealed a regular rhythm and rate with an S4 gallops. No murmurs or rubs. Abdomen: Benign. Extremities: Revealed no clubbing, cyanosis, or edema. Diagnostic Data: He had a chest x-ray that showed [id number] congestive heart failure. Head C T showed no acute abnormality. EKG showed sinus rhythm with PACs, possible anterolateral infarction maybe even left ventricular hypertrophy. Impression And Plan: 1.Hypertensive crisis. 2.Renal failure, acute creatinine of 5.44. 3.Anemia. 4.Diabetes. 5.Dyslipidemia. 6.Elevated troponin and BNP secondary to renal failure. I think the patient's only medication at home is Norvasc. should be on hydralazine. He i s already on nifedipine now. In addition to the amlodipine, I would strongly suggest beta-blockade. In his case, I think that would help with the blood pressure as well. He is not obviously a jamie te for SUZANNE inhibitor. I think that should be a strong consideration as far as his kidneys are concer vicki for possible dialysis, but that will be decided by Nephrology. I will continue to follow him oth erwise. Echocardiogram is pending. ANGIE/SAGE Voice ID: [id number] Report ID: [id number]
--- NOTE | 2020-11-18 12:30 | PN ---
The patient had came in with hypertensive crisis. His blood pressure continued to be elevated. It i s over 230 today. He did have a renal ultrasound that was unremarkable. I think he should have a re nal Doppler. I think he should be on Procardia, Norvasc, and hydralazine, He should be on a beta-blo cker. No SUZANNE inhibition. Strongly urged Nephrology consultation, possibly need for dialysis. Echoc ardiogram was perfectly normal without any wall motion abnormalities. Troponin elevation and BNP ayaan vation secondary to renal failure and heart failure. I will be available for questions if the need a rises. NB/MODL Voice ID: [id number] Report ID: [id number]
[2020-11-18] MEDS ORDERED: Nicardipine in Saline, Iso-Osm 20 MG/200 ML IV.SOLN. IV PRN (18:42)
[2020-11-18] MEDS ORDERED: LABETALOL 20 MG/4ML SYRINGE IV PRN (19:49)
[2020-11-18] MEDS: ATORVASTATIN 40 MG TAB PO SCH (20:11)
[2020-11-18] MEDS ORDERED: DOXAZOSIN 2 MG TAB PO SCH (23:21)
[2020-11-18] MEDS ORDERED: EPOETIN ALFA-EPBX 10,000 UNIT/ML VIAL SQ SCH (23:45)
[2020-11-19] MEDS ORDERED: EPOETIN ALFA-EPBX 10,000 UNIT/ML VIAL ONE (01:25)
[2020-11-19 06:06] LABS: Absolute Lymphocytes (CBC) 1.6 K/uL (0.7-4.9); Basophils % 0.3 % (0-1.3); Hematocrit 25.2 % (39.6-49.0); Lymphocytes % 20.4 % (15.3-44.8); MPV 9.2 fL (7.6-11.3); RBC Red Blood Cell Count 2.77 M/uL (4.33-5.43)
[2020-11-19 06:23] LABS: Albumin 2.6 g/dL (3.4-5.0); Phosphorus 4.5 mg/dL (2.5-4.9); Potassium 3.8 mmol/L (3.5-5.1)
[2020-11-19] MEDS ORDERED: FERROUS SULFATE 325 MG TAB PO SCH (09:00)
[2020-11-19] MEDS ORDERED: CALCITROL 0.25 MCG CAP PO SCH (09:00)
--- NOTE | 2020-11-19 09:23 | P.PN ---
Subjective Date of Service: 11/19/20 Chief Complaint: hypertensive emergency Denies DENNEY/CP/SOB. Physical Examination - Vital Signs Temperature: 97.1 F Blood Pressure: 202/86 Pulse: 65 Respirations: 18 Pulse Ox (%): 96 - Physical Exam General: In no apparent distress HEENT: Atraumatic, Normocephalic Neck: Supple, JVD not distended Respiratory: Normal air movement Cardiovascular: No gallops, No rubs, No murmurs Gastrointestinal: Soft and benign, Non-distended Musculoskeletal: No clubbing Integumentary: No warmth Neurological: Normal speech, Normal tone Lymphatics: No axilla or inguinal lymphadenopathy Urinary: Other (No bladder distention) External genitalia: Other Rectal: Other Assessment And Plan - Plan # CKD 4-5 Renal US showed advanced CKD changes +Subnephrotic proteinuria w/ random UPCR 2.9g iPTH sig elevated at 206, indicative of advanced CKD stat No acute indication for dialysis AVF planning as outpt Renal diet Monitor renal panel # 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 Start Doxazosin 2 mg po bid Cont Hydralazine 100 mg po tid Cont Amlodipine 10 mg po daily Cont Furosemide 20 mg po bid # CAD s/p NSTEMI Cont cardioprudent meds # Pulmo edema 2/2 accelerated Htn Cont lasix BP control Low Na/renal diet Do NOT limit free water intake unless he develops hyponatremia # Anemia Iron panel shows iron def--> start FeSO4 po bid Retacrit 10,000 u SQ received on 11/18 Monitor H/H # Secondary hyperPTH Start calcitriol 0.25 mcg po daily Start high dose D repletion as below # Vit D deficiency Start D3 5000 u po daily Recheck serum iPTH + 25OHD level in 3 mos # Renal osteodystrophy Serum Ca & Phos at goal, monitor # Metabolic acidosis Oral bicarb 650 mg po bid # DM2 Mngt per primary team # Dispo Anticipate dc tomorrow when BP better controlled
--- NOTE | 2020-11-19 09:40 | RAD REPORT ---
EXAM DESCRIPTION: US - Abdomen Pelvis Scan US - 11/19/2020 9:02 am CLINICAL HISTORY: Severe hypertension COMPARISON: None FINDINGS: The right kidney measures 10 centimeters. Mildly increased echotexture. No gross abnormality of the bladder The left kidney measures 9 centimeters. Mildly increased echotexture. The velocity of the right renal artery 123 centimeters/seconds. The velocity of the left renal artery 103 cm/sec. Renal artery/aorta ratio is within normal limits IMPRESSION: No sonographic evidence of renal arterial stenosis
[2020-11-19] MEDS: SODIUM BICARB 325 MG TAB PO SCH ×2 (09:43→21:43)
[2020-11-19] MEDS: HYDRALAZINE HCL 25 MG TABLET PO SCH ×3 (09:43→21:43)
[2020-11-19] MEDS: FUROSEMIDE 20 MG TABLET PO SCH ×2 (09:43→17:58)
[2020-11-19] MEDS: VITAMIN D 5,000 UNIT CAP PO SCH (09:44)
[2020-11-19] MEDS: CLOPIDOGREL 75 MG TABLET PO SCH (09:44)
[2020-11-19] MEDS: ASPIRIN EC 81 MG TAB PO SCH (09:44)
[2020-11-19] MEDS: FAMOTIDINE 20 MG TAB PO SCH (09:44)
[2020-11-19] MEDS: AMLODIPINE 10 MG TAB PO SCH (09:44)
--- NOTE | 2020-11-19 12:32 | P.PN ---
Subjective Date of Service: 11/19/20 Chief Complaint: hypertensive emergency Patient currently has no complain. Patient with refractory hypertension. Physical Examination - Vital Signs Temperature: 97.1 F Blood Pressure: 200/83 Pulse: 63 Respirations: 20 Pulse Ox (%): 97 - Physical Exam General: Alert, In no apparent distress, Oriented x3 HEENT: Mucous membr. moist/pink Neck: JVD not distended Respiratory: Clear to auscultation bilaterally, Normal air movement Cardiovascular: No edema, Regular rate/rhythm, Normal S1 S2 Gastrointestinal: Soft and benign, Non-distended Musculoskeletal: No swelling, No tenderness Integumentary: No rashes, No erythema Neurological: Normal speech, Normal strength at 5/5 x4 extr, Cranial nerves 3-12 intact Assessment And Plan - Current Problems (Diagnosis) (1) Elevated troponin Current Visit: Yes Status: Acute (2) Chronic kidney disease, stage 4 (severe) Current Visit: Yes Status: Acute (3) Hypertensive emergency Current Visit: Yes Status: Acute (4) Diabetes mellitus Current Visit: No Status: Chronic Qualifiers: Diabetes mellitus type: type 2 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 Elevated troponin likely secondary to kidney disease. Patient has no chest pain. Patient followed by nephrology. Renal ultrasound: Chronic kidney disease. Renal artery Doppler: No renal artery stenosis. Patient is getting Lasix for diastolic heart failure. IV Lasix switched to p.o. Cardiology input appreciated. Dr. Glover recommended medical management Patient with a history of noncompliance. Positive she nuclear stress test about 6 months ago. Continue aspirin and Plavix. Statins. Continue Amlodipine at 10 mg daily and Hydralazine 100 mg b.i.d. Blood pressure is refractory. Cardura added by nephrology today. Hydralazine IV p.r.n. for BP spikes.
[2020-11-19] MEDS: DOXAZOSIN 2 MG TAB PO SCH ×2 (12:45→21:40)
[2020-11-19] MEDS: HYDRALAZINE HCL 20 MG/ML VIAL IV PRN (12:53)
[2020-11-19] MEDS: ATORVASTATIN 40 MG TAB PO SCH (21:39)
[2020-11-19] MEDS: FERROUS SULFATE 325 MG TAB PO SCH (21:39)
[2020-11-20 05:03] VITALS: TEMP 97.9
[2020-11-20 05:05] VITALS: BMI 24.1
[2020-11-20 06:11] LABS: Albumin 2.6 g/dL (3.4-5.0); Phosphorus 4.2 mg/dL (2.5-4.9); Potassium 3.4 mmol/L (3.5-5.1)
[2020-11-20] MEDS: HYDRALAZINE HCL 25 MG TABLET PO SCH ×2 (08:23→13:47)
[2020-11-20] MEDS: AMLODIPINE 10 MG TAB PO SCH (08:24)
[2020-11-20] MEDS: CLOPIDOGREL 75 MG TABLET PO SCH (08:24)
[2020-11-20] MEDS: FUROSEMIDE 20 MG TABLET PO SCH (08:24)
[2020-11-20] MEDS: VITAMIN D 5,000 UNIT CAP PO SCH (08:24)
[2020-11-20] MEDS: FERROUS SULFATE 325 MG TAB PO SCH (08:24)
[2020-11-20] MEDS: ASPIRIN EC 81 MG TAB PO SCH (08:25)
[2020-11-20] MEDS: SODIUM BICARB 325 MG TAB PO SCH (08:25)
[2020-11-20] MEDS: DOXAZOSIN 2 MG TAB PO SCH (08:27)
[2020-11-20] MEDS ORDERED: CALCITROL 0.25 MCG CAP PO SCH (09:00)
[2020-11-20] MEDS: HYDRALAZINE HCL 20 MG/ML VIAL IV PRN (12:10)
[2020-11-20 12:20] VITALS: O2SAT 96
--- NOTE | 2020-11-20 13:47 | P.DS ---
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 Patient was discharged from the hospital with diagnosis of NSTEMI and CKD. Cath not done at that time due to poor kidney function. He was discharged on ASA, plavix, atorvastatin, lasix, hydralazine, metoprolol, and nifedipine but patient was noncompliant. He did not take his medications or followed up with nephrology or cardiology. He does not have a primary care doctor. CT head was within normal limits. CXR showd mild to moderate CHF and bilateral pleural effusions. BUN 54, Cr 5.13, GFR 11. Trop 0.12. BNP 60831. Blood pressure severely elevated. Patient is hospitalized for further management. Hospital Course: Patient admitted to the medical floor. Troponin trended flat. No acute rise to suggest ACS. Patient seen in consultation by cardiology-Dr. Glover who recommended medical management, no cardiac intervention. Patient's serum creatinines severely elevated indicating CKD stage 4. He was seen in consultation by nephrology. He does make urine and was therefore treated with IV Lasix for diuresis. His blood pressure was difficult to control. Patient started on hydralazine which was titrated up to 100 mg t.i.d., started on amlodipine 10 mg daily, Cardura added to keep his systolic blood pressure below 180. Patient has been asymptomatic, denies any chest pain or shortness of breath and has been needed to go home. He is also placed on dual platelet therapy. Patient is discharged to follow with nephrology and also with Cardiology. Compliance with medications and followup emphasized. I discussed with him risk of having a stroke or ending up on dialysis for uncontrolled blood pressure. Vital Signs/Physical Exam: Temp Pulse Resp BP Pulse Ox 97.9 F 69 15 169/74 H 96 11/20/20 12:00 11/20/20 12:00 11/20/20 12:00 11/20/20 12:00 11/20/20 12:00 General: In no apparent distress HEENT: Mucous membr. moist/pink Neck: Supple, JVD not distended Respiratory: Clear to auscultation bilaterally, Normal air movement Cardiovascular: Regular rate/rhythm, Normal S1 S2 Gastrointestinal: Soft and benign, Non-distended Musculoskeletal: No swelling Integumentary: No rashes Neurological: Normal strength at 5/5 x4 extr Laboratory Data at Discharge: WBC 7.80 K/uL (4.3-10.9) 11/19/20 05:22 Hgb 8.6 g/dL (13.6-17.9) L 11/19/20 05:22 Hct 25.2 % (39.6-49.0) L 11/19/20 05:22 Plt Count 200 K/uL (152-406) 11/19/20 05:22 PT 12.6 SECONDS (9.5-12.5) H 11/16/20 22:00 INR 1.09 11/16/20 22:00 Sodium 143 mmol/L (136-145) 11/20/20 05:10 Potassium 3.4 mmol/L (3.5-5.1) L 11/20/20 05:10 BUN 60 mg/dL (7-18) H 11/20/20 05:10 Creatinine 5.54 mg/dL (0.55-1.3) H* 11/20/20 05:10 Glucose 105 mg/dL (74-106) 11/20/20 05:10 Phosphorus 4.2 mg/dL (2.5-4.9) 11/20/20 05:10 Magnesium 2.4 mg/dL (1.8-2.4) 11/18/20 04:01 Total Bilirubin 0.8 mg/dL (0.2-1.0) 11/17/20 02:38 AST 18 U/L (15-37) 11/17/20 02:38 ALT 15 U/L (12-78) 11/17/20 02:38 Alkaline Phosphatase 71 U/L (45-117) 11/17/20 02:38 Troponin I 0.09 ng/mL (0.0-0.045) H 11/17/20 06:46 Triglycerides 79 mg/dL (<150) 11/17/20 02:38 Cholesterol 147 mg/dL (<200) 11/17/20 02:38 HDL Cholesterol 34 mg/dL (40-60) L 11/17/20 02:38 Cholesterol/HDL Ratio 4.32 11/17/20 02:38 Home Medications: Amlodipine [Norvasc*] 10 mg PO DAILY #30 tab 11/20/20 Atorvastatin Calcium [Lipitor] 40 mg PO BEDTIME #30 tab 11/20/20 Calcitrol [Rocaltrol*] 0.25 mcg PO DAILY #30 cap 11/20/20 Cholecalciferol (Vitamin D3) [Vitamin D 5,000 IU Cap*] 5,000 unit PO DAILY #30 cap 11/20/20 Clopidogrel Bisulfate [Plavix*] 75 mg PO DAILY #30 tablet 11/20/20 Doxazosin [Cardura*] 2 mg PO BID #60 tab 11/20/20 Famotidine [Pepcid*] 20 mg PO Q48H #15 tab 11/20/20 Ferrous Sulfate [Ferrous Sulfate*] 325 mg PO BID #60 tab 11/20/20 Furosemide [Lasix*] 20 mg PO BIDL #60 tab 11/20/20 Hydralazine HCl [Apresoline] 100 mg PO TID #180 tablet 11/20/20 Sodium Bicarbonate 650 mg PO BID #60 tablet 11/20/20 New Medications: Hydralazine HCl [Apresoline] 100 mg PO TID #180 tablet Doxazosin [Cardura*] 2 mg PO BID #60 tab Ferrous Sulfate [Ferrous Sulfate*] 325 mg PO BID #60 tab Furosemide [Lasix*] 20 mg PO BIDL #60 tab Atorvastatin Calcium [Lipitor] 40 mg PO BEDTIME #30 tab Amlodipine [Norvasc*] 10 mg PO DAILY #30 tab Famotidine [Pepcid*] 20 mg PO Q48H #15 tab Clopidogrel Bisulfate [Plavix*] 75 mg PO DAILY #30 tablet Calcitrol [Rocaltrol*] 0.25 mcg PO DAILY #30 cap Sodium Bicarbonate 650 mg PO BID #60 tablet Cholecalciferol (Vitamin D3) [Vitamin D 5,000 IU Cap*] 5,000 unit PO DAILY #30 cap Physician Discharge Instructions: Please check your blood pressure before you taking medications. Diet: AHA Activity: Ad yuriy Followup: John Pretty [ACTIVE - CAN ADMIT] - 1-2 Weeks Dusty Glover MD [ACTIVE - CAN ADMIT] - 1-2 Weeks NONE,NONE [Primary Care Provider] - Time spent managing pt's care (in minutes): 38
[2020-11-20 13:48] VITALS: BP 158/71
--- NOTE | 2020-11-20 14:29 | P.PN ---
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 No overnight events BP is better controlled Cr stable can be discharged from nephrology point of view Follow with nephrology clinic in 2-3wks Physical Examination: General: AAOX3, , neck: supple, no elevated JVD Heart: RRR, normal S1,2 no murmur or rub chest CTAB, no rales or wheezes Abdomen: soft , NT ext : no edema # CKD 4-5 Renal US showed advanced CKD changes +Subnephrotic proteinuria w/ random UPCR 2.9g iPTH sig elevated at 206, indicative of advanced CKD stat No acute indication for dialysis AVF planning as outpt Renal diet Monitor renal panel # 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 Doxazosin 2 mg po bid Cont Hydralazine 100 mg po tid Cont Amlodipine 10 mg po daily Cont Furosemide 20 mg po bid # CAD s/p NSTEMI Cont cardioprudent meds # Pulmo edema 2/2 accelerated Htn Cont lasix BP control Low Na/renal diet Do NOT limit free water intake unless he develops hyponatremia # Anemia Iron panel shows iron def--> start FeSO4 po bid Retacrit 10,000 u SQ received on 11/18 Monitor H/H # Secondary hyperPTH Start calcitriol 0.25 mcg po daily Start high dose D repletion as below # Vit D deficiency Start D3 5000 u po daily Recheck serum iPTH + 25OHD level in 3 mos # Renal osteodystrophy Serum Ca & Phos at goal, monitor # Metabolic acidosis Oral bicarb 650 mg po bid # DM2 Mngt per primary team Physical Examination - Vital Signs Temperature: 97.9 F Blood Pressure: 158/71 Pulse: 84 Respirations: 15 Pulse Ox (%): 96
== END 2020-11-20 14:47 | disposition home or self-care (01) | DRG 291 ==
LOC: ER 19:09 → ERHOLD 23:54 → 2ND 11-17 19:44
PROVIDERS: ADMIT Internal Medicine; ATTEND Internal Medicine
DX: I13.0 Hypertensive heart and chronic kidney disease with heart failure and stage 1 through stage 4 chronic kidney disease, or unspecified chronic kidney disease (principal); I50.31 Acute diastolic (congestive) heart failure; N18.4 Chronic kidney disease, stage 4 (severe); I16.1 Hypertensive emergency; E87.2 Acidosis; E11.22 Type 2 diabetes mellitus with diabetic chronic kidney disease; R77.8 Other specified abnormalities of plasma proteins; I25.10 Atherosclerotic heart disease of native coronary artery without angina pectoris; D50.9 Iron deficiency anemia, unspecified; E55.9 Vitamin D deficiency, unspecified; N25.0 Renal osteodystrophy; Z20.822 Contact with and (suspected) exposure to COVID-19
CPT/HCPCS: 36415; 70450; 71045; 74176; 76770; 80048; 80053; 80061; 80069; 80076; 81001; 82040; 82306; 82570; 82607; 82728; 82746; 83540; 83690; 83735; 83880; 83935; 83970; 84100; 84132; 84156; 84300; 84439; 84443; 84466; 84484; 85025; 85610; 93005; 93306; 93975; 94760; 96374; 99283; 99284; J0360; J1940; Q5106; U0003

== ENCOUNTER 2020-12-05 00:54 | Inpatient (IN) | payer OTHER ==
--- OUTSIDE RECORDS SUMMARY | 2020-12-05 00:58 | XMS REPORT | Continuity of Care Document ---
:1945 Author Organization [facility] t Address [address] [place] [address] Care Team Providers Name Role Phone Unavailable Unavailable Unavailable Problems This patient has no known problems. Allergies, Adverse Reactions, Alerts This patient has no known allergies or adverse reactions. Medications This patient has no known medications. Procedures This patient has no known procedures. Encounters Start End Encounter Admission Attending Care Care Encounter Source Date/Time Date/Time Type Type Clinicians Facility Department ID 2020-11-22 2020-11-22 Outpatient [facility] [id number] [facility] 2020-09-02 2020-09-02 Outpatient [facility] [id number] [facility] 2020-08-09 2020-08-09 Outpatient [facility] [id number] [facility] 2020-08-03 2020-08-03 Outpatient [facility] [id number] [facility] Results This patient has no known results.
[2020-12-05 03:07] LABS: Absolute Lymphocytes (CBC) 1.9 K/uL (0.7-4.9); Hematocrit 27.6 % (39.6-49.0); Lymphocytes % 12.8 % (15.3-44.8); MPV 9.3 fL (7.6-11.3); RBC Red Blood Cell Count 3.08 M/uL (4.33-5.43)
[2020-12-05 03:24] LABS: Albumin 3.2 g/dL (3.4-5.0); Bilirubin Direct 0.2 mg/dL (0-0.2); Bilirubin Total 0.7 mg/dL (0.2-1.0); Potassium 3.9 mmol/L (3.5-5.1); Protein, Total 7.8 g/dL (6.4-8.2)
[2020-12-05 04:17] LABS: Protime INR 1.14
[2020-12-05 04:46] LABS: Troponin (Emerg Dept Use Only) 3.54 ng/mL (0.0-0.045)
--- NOTE | 2020-12-05 05:05 | EDPHYS ---
Physician Documentation [facility] Name: Roscoe Urias Age: 75 yrs Sex: Male : 1945 Arrival Date: 12/05/2020 Time: 00:56 Bed 26 Private MD: ED Physician Spike Pinon HPI: 12/05 03:20 This 75 yrs old Male presents to ER via Ambulatory with complaints of mh7 Abdominal Pain, Bloating. 03:20 The patient presents with abdominal pain in the upper abdomen, Bloating. Onset: The mh7 symptoms/episode began/occurred 2 week(s) ago. The symptoms do not radiate. Associated signs and symptoms: Pertinent positives: constipation, Pertinent negatives: nausea and vomiting, anorexia, blood in stools, chest pain, diarrhea, dysuria, fever, headache, hematuria, nausea, palpitations, testicular pain, vomiting, vomiting blood. The symptoms are described as intermittent, vague, waxing/waning. Modifying factors: The symptoms are alleviated by nothing, the symptoms are aggravated by nothing. 03:20 Severity of pain: At its worst the pain was mild yesterday, in the emergency department mh7 the pain is unchanged. Historical: - Allergies: 02:44 No Known Allergies; em - PMHx: 02:44 Diabetes; Hyperlipidemia; Hypertension; em - PSHx: 02:44 None; em - Immunization history:: Client reports receiving the 2nd dose of the Covid vaccine. - Social history:: Smoking status: Patient denies any tobacco usage or history of. ROS: 03:20 Constitutional: Negative for fever, chills, and weight loss, Eyes: Negative for injury, mh7 pain, redness, and discharge, ENT: Negative for injury, pain, and discharge, Neck: Negative for injury, pain, and swelling, Cardiovascular: Negative for chest pain, palpitations, and edema, Back: Negative for injury and pain, : Negative for injury, bleeding, discharge, and swelling, MS/Extremity: Negative for injury and deformity, Skin: Negative for injury, rash, and discoloration, Neuro: Negative for headache, weakness, numbness, tingling, and seizure, Psych: Negative for depression, anxiety, suicide ideation, homicidal ideation, and hallucinations, Allergy/Immunology: Negative for hives, rash, and allergies, Endocrine: Negative for neck swelling, polydipsia, polyuria, polyphagia, and marked weight changes, Hematologic/Lymphatic: Negative for swollen nodes, abnormal bleeding, and unusual bruising. 03:20 Cardiovascular: Negative for chest pain. mh7 Exam: 03:20 Constitutional: This is a well developed, well nourished patient who is awake, alert, mh7 and in no acute distress. Head/Face: Normocephalic, atraumatic. Eyes: Pupils equal round and reactive to light, extra-ocular motions intact. Lids and lashes normal. Conjunctiva and sclera are non-icteric and not injected. Cornea within normal limits. Periorbital areas with no swelling, redness, or edema. Neck: Trachea midline, no thyromegaly or masses palpated, and no cervical lymphadenopathy. Supple, full range of motion without nuchal rigidity, or vertebral point tenderness. No Meningismus. Chest/axilla: Normal chest wall appearance and motion. Nontender with no deformity. No lesions are appreciated. Cardiovascular: Regular rate and rhythm with a normal S1 and S2. No gallops, murmurs, or rubs. Normal PMI, no JVD. No pulse deficits. Respiratory: Lungs have equal breath sounds bilaterally, clear to auscultation and percussion. No rales, rhonchi or wheezes noted. No increased work of breathing, no retractions or nasal flaring. Abdomen/GI: Soft, non-tender, with normal bowel sounds. No distension or tympany. No guarding or rebound. No evidence of tenderness throughout. Back: No spinal tenderness. No costovertebral tenderness. Full range of motion. MS/ Extremity: Pulses equal, no cyanosis. Neurovascular intact. Full, normal range of motion. Neuro: Awake and alert, GCS 15, oriented to person, place, time, and situation. Cranial nerves II-XII grossly intact. Motor strength 5/5 in all extremities. Sensory grossly intact. Cerebellar exam normal. Normal gait. Psych: Awake, alert, with orientation to person, place and time. Behavior, mood, and affect are within normal limits. Vital Signs: 02:42 BP 139 / 67; Pulse 93; Resp 16; Temp 97.9; Pulse Ox 92% on R/A; em 03:00 BP 144 / 77; Pulse 101; Resp 20; Pulse Ox 92% on R/A; jb4 04:40 BP 136 / 66; Pulse 93; Resp 24; Pulse Ox 89% on 3 lpm NC; jb4 06:36 BP 134 / 67; Pulse 102; Resp 18; Pulse Ox 91% on 6 lpm NC; Weight 74 kg (M); jb4 08:00 BP 141 / 70; Pulse Ox 92% on R/A; tr6 09:30 BP 140 / 71; Pulse 92; Resp 18; Pulse Ox 92% on NC; tr6 12:00 BP 134 / 70; Pulse 93; Resp 18; Pulse Ox 91% on NC; zb 13:26 BP 133 / 61; Pulse 84; Resp 16; Pulse Ox 94% on NC; zb 14:00 BP 142 / 67; Pulse 82; Resp 19; Pulse Ox 96% on NC; zb 15:03 BP 130 / 73; Pulse 92; Resp 16; Pulse Ox 91% ; zb 16:05 BP 125 / 75; Pulse 97; Resp 18; Pulse Ox 90% on NC; zb 12/06 06:00 BP 140 / 68; Pulse 93; Resp 20; Pulse Ox 89% on NC; mw2 MDM: 12/05 05:02 Differential diagnosis: bowel obstruction, coronary artery disease, cholecystitis, mh7 Cholelithiasis, diverticulitis, gastritis, gastroesophageal reflux disease, non-specific abd pain, pancreatitis, Peptic Ulcer Disease, Pyelonephritis, Ureterolithiasis, urinary tract infection. Data reviewed: vital signs, nurses notes, old medical records, lab test result(s), cardiac enzymes, CBC, electrolytes, EKG, radiologic studies, CT scan, plain films. Data interpreted: Pulse oximetry: on 3L(s) per nasal canula, is 94 %. Interpretation: acceptable. Counseling: I had a detailed discussion with the patient and/or guardian regarding: the historical points, exam findings, and any diagnostic results supporting the discharge/admit diagnosis, the presence of at least one elevated blood pressure reading (>120/80) during this emergency department visit, lab results, radiology results, the need for further work-up and treatment in the hospital. Response to treatment: the patient's symptoms have mildly improved after treatment. 05:05 Patient medically screened. [facility] 07:35 Transition of care: After a detail discussion of the patient's case, care is mh7 transferred to Justin Fairchild MD. 12/05 02:52 Order name: Basic Metabolic Panel em 12/05 02:52 Order name: CBC with Diff em 12/05 02:52 Order name: Hepatic Function em 12/05 02:52 Order name: Lipase em 12/05 02:52 Order name: Basic Metabolic Panel; Complete Time: 03:32 EDMS 12/05 02:52 Order name: CBC with Automated Diff; Complete Time: 03:32 EDMS 12/05 02:52 Order name: Liver (Hepatic) Function; Complete Time: 03:32 EDMS 12/05 02:52 Order name: Lipase; Complete Time: 03:32 EDMS 12/05 02:58 Order name: COVID-19 : Document "Date of Symptom Onset" if Symptomatic. [facility] 12/05 03:33 Order name: Troponin (emerg Dept Use Only) [facility] 12/05 03:33 Order name: Protime (+inr); Complete Time: 04:21 [facility] 12/05 03:33 Order name: Ptt, Activated; Complete Time: 04:21 [facility] 12/05 03:33 Order name: PROBNP; Complete Time: 04:46 [facility] 12/05 03:34 Order name: Troponin (Emerg Dept Use Only); Complete Time: 04:46 [facility] 12/05 03:34 Order name: Chest Single View XRAY [facility] 12/05 03:36 Order name: CT Abd/Pelvis - Without Contrast [facility] 12/05 04:39 Order name: SARS-COV-2 RT PCR; Complete Time: 04:46 [facility] 12/05 05:02 Order name: Blood Culture Adult (2) [facility] 12/05 05:02 Order name: Procalcitonin; Complete Time: 07:13 [facility] 12/05 05:02 Order name: Lactate; Complete Time: 06:12 [facility] 12/05 05:02 Order name: CRP; Complete Time: 06:12 [facility] 12/05 20:35 Order name: C-Reactive Protein EDMS 12/06 03:16 Order name: CBC with Automated Diff EDMS 12/06 03:35 Order name: C-Reactive Protein EDMS 12/06 03:51 Order name: Comprehensive Metabolic Panel EDMS 12/06 05:06 Order name: Manual Differential EDMS 12/06 13:27 Order name: Gram Stain--Anaerobic Bottle EDMS 12/06 13:30 Order name: Gram Stain--Anaerobic Bottle EDMS 12/05 02:52 Order name: IV Saline Lock; Complete Time: 03:17 em 12/05 02:52 Order name: Labs collected and sent; Complete Time: 03:17 em 12/05 03:34 Order name: EKG - Nurse/Tech; Complete Time: 04:42 mh7 12/05 05:39 Order name: CONS Physician Consult EDMS Administered Medications: 04:48 Drug: morphine 2 mg Route: IVP; Site: right antecubital; jb4 05:42 Drug: Pepcid (famotidine) 20 mg Route: IVP; Site: right antecubital; jb4 07:13 Follow up: Response: No adverse reaction jb4 05:42 Drug: Aspirin Chewable Tablet 324 mg Route: PO; jb4 07:12 Follow up: Response: No adverse reaction jb4 05:42 Drug: SOLU-Medrol (methylPrednisoLONE) 80 mg Route: IVP; Site: right antecubital; jb4 18:06 Follow up: Response: No adverse reaction zb 06:45 Drug: morphine 2 mg Route: IVP; Site: right antecubital; jb4 18:06 Follow up: Response: No adverse reaction; Pain is decreased zb 06:45 Drug: Lovenox (enoxaparin) 1 mg/kg Route: Sub-Q; Site: right lower abdomen; jb4 18:06 Follow up: Response: No adverse reaction zb 12:35 Drug: Zofran (Ondansetron) 4 mg Route: IVP; Site: right antecubital; zb 13:00 Follow up: Response: No adverse reaction; Nausea is decreased zb Disposition Summary: 12/05/20 16:14 Hospitalization Ordered Hospitalization Status: Inpatient Admission(12/05/20 16:14) tw4 Provider: Vicente Don(12/05/20 16:14) tw4 Condition: Stable(12/05/20 16:14) tw4 Problem: new(12/05/20 16:14) tw4 Symptoms: have improved(12/05/20 16:14) tw4 Bed/Room Type: Standard(12/05/20 16:14) tw4 Location: Telemetry/MedSurg (Inpatient)(12/06/20 21:17) mw Room Assignment: 415(12/06/20 21:17) mw Diagnosis - Subsequent non-ST elevation (NSTEMI) myocardial infarction(12/05/20 16:14) tw4 - Pneumonia due to SARS-associated coronavirus tw4 - Coronavirus infection, unspecified tw4 - Hypoxemia tw4 Forms: - Medication Reconciliation Form tw4 - SBAR form tw4 Signatures: Dispatcher [employer] EDNH Aurelia Orona RN RN mw Benjamin Barron RN RN em Pena, Laura, RN RN lp1 Pancho Azevedo RN RN jb4 Justin Fairchild MD MD tw4 Spike Pinon MD MD mh7 Sena Galaviz RN RN zb Corrections: (The following items were deleted from the chart) 03:09 02:59 CORONAVIRUS ordered. EDNH EDNH 03:46 03:45 Severity of pain: At its worst the pain was mild yesterday, in the emergency [facility] department the pain is unchanged mh7 05:49 05:05 Telemetry/MedSurg (Inpatient) 7 05:49 05:05 7 07:14 05:05 Inpatient Admission mh7 mh7 07:14 05:05 Prezas, [place] 7 mh7 07:14 05:05 Stable 7 mh7 07:14 05:05 new 7 mh7 07:14 05:05 have improved 7 mh7 07:14 05:05 Standard mh7 mh7 07:14 05:05 COVID Pneumonia, Hypoxia mh7 mh7 07:14 05:05 Subsequent non-ST elevation (NSTEMI) myocardial infarction mh7 mh7 07:14 05:49 [facility] ER HOLD mw mh7 07:14 05:49 ERHOLD- mh7 20:41 16:14 Telemetry/MedSurg (Inpatient) tw4 lp1 20:41 16:14 tw4 lp1 12/06 21:17 12/05 20:41 [facility] ER HOLD lp1 mw 12/06 21:17 08 20:41 ERHOLD- lp1 mw
--- NOTE | 2020-12-05 05:05 | ER ---
Nurse's Notes [facility] Name: Roscoe Urias Age: 75 yrs Sex: Male : 1945 Arrival Date: 12/05/2020 Time: 00:56 Bed 26 Private MD: Diagnosis: Subsequent non-ST elevation (NSTEMI) myocardial infarction;Pneumonia due to SARS-associated coronavirus;Coronavirus infection, unspecified;Hypoxemia Presentation: 12/05 02:42 Chief complaint: Patient states: reports bloated for 2 weeks ago, denies abdominal pain em or N/V fever. Coronavirus screen: Client denies travel out of the [place] in the last 14 days. Ebola Screen: Patient negative for fever greater than or equal to 101.5 degrees Fahrenheit, and additional compatible Ebola Virus Disease symptoms Patient denies exposure to infectious person. Patient denies travel to an Ebola-affected area in the 21 days before illness onset. No symptoms or risks identified at this time. Initial Sepsis Screen: Does the patient meet any 2 criteria? HR > 90 bpm. No. Patient's initial sepsis screen is negative. Does the patient have a suspected source of infection? No. Patient's initial sepsis screen is negative. Risk Assessment: Do you want to hurt yourself or someone else? Patient reports no desire to harm self or others. Onset of symptoms was December 05, 2020. 02:42 Method Of Arrival: Ambulatory em 02:42 Acuity: RUBEN 3 em Historical: - Allergies: 02:44 No Known Allergies; em - PMHx: 02:44 Diabetes; Hyperlipidemia; Hypertension; em - PSHx: 02:44 None; em - Immunization history:: Client reports receiving the 2nd dose of the Covid vaccine. - Social history:: Smoking status: Patient denies any tobacco usage or history of. Screenin:00 Abuse screen: Denies threats or abuse. Nutritional screening: No deficits noted. jb4 Tuberculosis screening: No symptoms or risk factors identified. Fall Risk None identified. Assessment: 03:00 General: Appears in no apparent distress. uncomfortable, Behavior is calm, cooperative, jb4 appropriate for age. Pain: Complains of pain in abdomen Pain does not radiate. Pain currently is 8 out of 10 on a pain scale. Neuro: Level of Consciousness is awake, alert, obeys commands, Oriented to person, place, time, situation. Cardiovascular: Patient's skin is warm and dry. Respiratory: Airway is patent Respiratory effort is even, unlabored, Respiratory pattern is regular, symmetrical. GI: Abdomen is distended, non-distended. : No signs and/or symptoms were reported regarding the genitourinary system. EENT: No signs and/or symptoms were reported regarding the EENT system. Derm: Skin is intact, Skin is dry, Skin is pale, Skin temperature is warm. Musculoskeletal: Circulation, motion, and sensation intact. Range of motion: intact in all extremities. 04:00 Reassessment: Patient appears in no apparent distress at this time. Patient and/or jb4 family updated on plan of care and expected duration. Pain level reassessed. Patient is alert, oriented x 3, equal unlabored respirations, skin warm/dry/pink. 04:51 Reassessment: Pt desatting to 89% on 3L NC, Provider notified, Increased to 4L NC. no jb4 satting 90%. 05:43 Reassessment: Patient appears in no apparent distress at this time. Patient and/or jb4 family updated on plan of care and expected duration. Pain level reassessed. Patient is alert, oriented x 3, equal unlabored respirations, skin warm/dry/pink. 08:13 Reassessment: assumed care of pt resting comfortably in bed. pending transfer. pt tr6 denies need for assistance at this time. 12:14 Reassessment: Patient appears in no apparent distress at this time. Patient and/or zb family updated on plan of care and expected duration. Pain level reassessed. Patient is alert, oriented x 3, equal unlabored respirations, skin warm/dry/pink. c/o of nausea. notified ECP. medicated. 13:25 Reassessment: Patient appears in no apparent distress at this time. Patient and/or zb family updated on plan of care and expected duration. Pain level reassessed. Patient is alert, oriented x 3, equal unlabored respirations, skin warm/dry/pink. remains on oxygen. 14:00 Reassessment: Patient appears in no apparent distress at this time. Patient and/or zb family updated on plan of care and expected duration. Pain level reassessed. Patient is alert, oriented x 3, equal unlabored respirations, skin warm/dry/pink. 15:04 Reassessment: Patient appears in no apparent distress at this time. Patient and/or zb family updated on plan of care and expected duration. Pain level reassessed. Patient is alert, oriented x 3, equal unlabored respirations, skin warm/dry/pink. 16:05 Reassessment: Patient appears in no apparent distress at this time. Patient and/or zb family updated on plan of care and expected duration. Pain level reassessed. Patient is alert, oriented x 3, equal unlabored respirations, skin warm/dry/pink. remains on NC. 16:09 Reassessment: Given PO fluid, okay with ECP. zb Vital Signs: 02:42 BP 139 / 67; Pulse 93; Resp 16; Temp 97.9; Pulse Ox 92% on R/A; em 03:00 BP 144 / 77; Pulse 101; Resp 20; Pulse Ox 92% on R/A; jb4 04:40 BP 136 / 66; Pulse 93; Resp 24; Pulse Ox 89% on 3 lpm NC; jb4 06:36 BP 134 / 67; Pulse 102; Resp 18; Pulse Ox 91% on 6 lpm NC; Weight 74 kg (M); jb4 08:00 BP 141 / 70; Pulse Ox 92% on R/A; tr6 09:30 BP 140 / 71; Pulse 92; Resp 18; Pulse Ox 92% on NC; tr6 12:00 BP 134 / 70; Pulse 93; Resp 18; Pulse Ox 91% on NC; zb 13:26 BP 133 / 61; Pulse 84; Resp 16; Pulse Ox 94% on NC; zb 14:00 BP 142 / 67; Pulse 82; Resp 19; Pulse Ox 96% on NC; zb 15:03 BP 130 / 73; Pulse 92; Resp 16; Pulse Ox 91% ; zb 16:05 BP 125 / 75; Pulse 97; Resp 18; Pulse Ox 90% on NC; zb 12/06 06:00 BP 140 / 68; Pulse 93; Resp 20; Pulse Ox 89% on NC; 2 ED Course: 12/05 00:56 Patient arrived in ED. bp1 02:44 Triage completed. em 02:44 Arm band placed on. em 03:00 Initial lab(s) drawn, by me, sent to lab. Inserted saline lock: 20 gauge in right em antecubital area, using aseptic technique. Blood collected. 03:08 Spike Pinon MD is Attending Physician. mh7 04:15 Pancho Azevedo RN is Primary Nurse. jb4 04:18 CT Abd/Pelvis - Without Contrast In Process Unspecified. EDMS 04:23 Chest Single View XRAY In Process Unspecified. EDMS 05:03 Kolton Rock DO is Hospitalizing Provider. mh7 06:43 attempted to initiated a transfer with Shell from the [facility]/ eb patient denied due to being at capacity in the [facility] ICU unit. 07:37 called and initiated the transfer again at the request of our hospitalist with Thais kinsey from the [facility]/ patient has been placed on their wait list and she will call back with doc to doc once a bed opens up. 08:13 No provider procedures requiring assistance completed. tr6 08:14 Patient has correct armband on for positive identification. Bed in low position. Call tr6 light in reach. Side rails up X 1. senior ui software engineer on. Pulse ox on. NIBP on. Door closed. Noise minimized. Visitors limited. Lights dimmed. Moved to private room. 12:14 Report received from RAJESH Davila. tr6 12:16 Primary Nurse role handed off by Pancho Azevedo, RAJESH zb 12:16 Sena Galaviz RN is Primary Nurse. zb 16:13 Vicente Don MD is Hospitalizing Provider. tw4 12/06 06:11 Primary Nurse role handed off by Sena Galaviz RN mw2 07:05 Vern Durbin, RAJESH is Primary Nurse. bp 19:30 Primary Nurse role handed off by Vern Durbin RN mw2 23:18 Yumiko Johnson, RAJESH is Primary Nurse. ch4 Administered Medications: 12/05 04:48 Drug: morphine 2 mg Route: IVP; Site: right antecubital; jb4 05:42 Drug: Pepcid (famotidine) 20 mg Route: IVP; Site: right antecubital; jb4 07:13 Follow up: Response: No adverse reaction jb4 05:42 Drug: Aspirin Chewable Tablet 324 mg Route: PO; jb4 07:12 Follow up: Response: No adverse reaction jb4 05:42 Drug: SOLU-Medrol (methylPrednisoLONE) 80 mg Route: IVP; Site: right antecubital; jb4 18:06 Follow up: Response: No adverse reaction zb 06:45 Drug: morphine 2 mg Route: IVP; Site: right antecubital; jb4 18:06 Follow up: Response: No adverse reaction; Pain is decreased zb 06:45 Drug: Lovenox (enoxaparin) 1 mg/kg Route: Sub-Q; Site: right lower abdomen; jb4 18:06 Follow up: Response: No adverse reaction zb 12:35 Drug: Zofran (Ondansetron) 4 mg Route: IVP; Site: right antecubital; zb 13:00 Follow up: Response: No adverse reaction; Nausea is decreased zb Outcome: 05:05 Decision to Hospitalize by Provider. [facility] 16:14 Decision to Hospitalize by Provider. [facility] 12/06 23:38 Patient left the ED. ch4 Signatures: Dispatcher [employer] EDBenjamin Milligan RN Pancho Beltran RN RN 4 Vern Durbin RN RN bp Wadley, Terrence, MD MD 4 Mo Ricci 2 Yaz Burr Brittany bp1 Holmes, Maurice, MD MD 7 Sena Galaviz RN RN zb Lola Tijerina RN RN 6 Yumiko Johnson RN RN ch4 Corrections: (The following items were deleted from the chart) 12/05 06:37 06:36 BP 134 / 67; Pulse 102bpm; Resp 18bpm; Pulse Ox 91% 6 lpm Nasal Cannula; jb4 jb4 13:25 12:14 Reassessment: c/o of nausea. notified ECP tr6 nichelleb
[2020-12-05] MEDS ORDERED: MORPHINE 2 MG/ML SYR ONE ×2 (05:08→07:04)
[2020-12-05] MEDS ORDERED: FAMOTIDINE 20 MG/2 ML VIAL IV ONE (05:55)
[2020-12-05] MEDS ORDERED: METHYLPREDNISOLONE 40 MG INJ ONE ×2 (05:55→20:40)
[2020-12-05] MEDS ORDERED: ASPIRIN 81 MG CHEWABLE TABLET ONE (05:55)
[2020-12-05] MEDS ORDERED: ENOXAPARIN 30 MG/0.3 ML SQ ONE (07:04)
[2020-12-05] MEDS ORDERED: ENOXAPARIN 40 MG/0.4 ML SQ ONE (07:05)
--- NOTE | 2020-12-05 08:17 | RAD REPORT ---
EXAM DESCRIPTION: RAD - Chest Single View - 12/05/2020 4:23 am CLINICAL HISTORY: Hypertension COMPARISON: Chest Single View dated 11/16/2020; Chest Single View dated 08/07/2020; Chest Single View dated 04/28/2020; Chest Single View dated 12/15/2015; Abdomen Pelvis Wo Contrast dated 12/05/2020 FINDINGS: Diffuse prominence of the pulmonary interstitium. Bilateral pleural effusions. Cardiomegal y.No acute osseous abnormality IMPRESSION: Pulmonary edema with bilateral pleural effusions which is similar to 11/16/2020.
[2020-12-05] MEDS ORDERED: ONDANSETRON 4 MG/2 ML VIAL ONE (12:56)
[2020-12-05] MEDS ORDERED: FUROSEMIDE 40 MG/4 ML VIAL IV ONE (19:54)
[2020-12-05] MEDS ORDERED: ATORVASTATIN 20 MG TAB ONE (20:40)
[2020-12-05] MEDS ORDERED: FUROSEMIDE 40 MG/4 ML VIAL ONE (20:41)
--- NOTE | 2020-12-05 20:48 | CON ---
Date of Consultation: 12/05/2020 Chief Complaint: Advanced chronic kidney disease, congestive heart failure, cardiorenal syndrome. History Of Present Illness: The patient came to the hospital because of generalized abdominal pain a nd he was complaining of shortness of breath. He had workup done to rule out acute coronary syndrome . The patient was found to have elevated troponin and Cardiology is consulted for acute coronary syn drome, [id number] infarction. The patient presented with abdominal pain in the upper abdomen w ith bloating and he denies melena, hematemesis. Denies kidney stone or renal colic. The patient joe cribed vomiting, but not vomiting with blood. Symptoms were vague although and waxing and waning. The patient has chronic kidney disease stage 4, advancing to stage 5. Previously, he was admitted ab out 2 weeks ago and was found to have interstitial pulmonary edema, pleural effusion. Chest x-ray sh owed similar pattern. The patient is on O2 nasal cannula and SpO2 is 92. The patient had a routine test done for COVID and was found to have COVID pneumonia. He is started on IV steroids and oxygenat ion is initiated. Review of Systems: The patient is lethargic slightly. Cannot provide review of systems. Past Medical History: Chronic kidney disease stage 4 due to diabetes mellitus, hypertension, hyperli pidemia, anemia in CKD, renal osteodystrophy, history of coronary artery disease, previous workup don e with Cardiology on previous occasion. Family History: No kidney disease. Social History: Negative for tobacco, alcohol, or illicit drugs. Physical Examination: General: The patient is awake, follows commands. Eyes: Anicteric sclerae. Neck: Supple. Heart: S1, S2. Abdomen: Benign. Extremities: Some edema present in both legs. Laboratory Data: Chest x-rays show mild to moderate congestive heart failure. Impression And Plan: 1.History of chronic kidney stage 4, advancing to stage 5. The patient has cardiorenal syndrome. W e will start IV diuretic, monitor blood pressure closely, and hold diuretic if systolic pressure is b elow 110. 2.Hypertensive crisis. The patient has history of uncontrolled hypertension. Monitor blood pressur e. Advance medication as needed. 3.Anemia. Hemoglobin level is ranging from 8.6 to 9.3. Continue to monitor. 4.Renal osteodystrophy. Continue to monitor phosphorus level. Adjust diet to prevent hyperphosphat emia. 5.Diabetes mellitus with renal manifestation. Continue insulin. 6.Chronic kidney disease. The patient will have dialysis catheter placed and dialysis will be start ed to provide metabolic clearance and ultrafiltration. I discussed case with Dr. Don and with YIFAN lezama. MARITA/SAGE Voice ID: [id number] Report ID: [id number]
[2020-12-05] MEDS ORDERED: HOME MED 1 EA UNK (Hydralazine Hcl [Apresoline] 50 MG Tablet) PO SCH (21:00)
[2020-12-05] MEDS: FERROUS SULFATE 325 MG TAB PO SCH (21:00)
[2020-12-05] MEDS: METHYLPREDNISOLONE 40 MG INJ IV SCH (21:00)
[2020-12-05] MEDS ORDERED: METHYLPRED NA SUC 40 MG in NA CHLORIDE 0.9% 100 ML IV SCH (21:00)
[2020-12-05] MEDS: ATORVASTATIN 40 MG TAB PO SCH (21:00)
[2020-12-05] MEDS ORDERED: FERROUS SULFATE 325 MG TAB PO ONE (21:22)
[2020-12-05] MEDS ORDERED: HYDRALAZINE HCL 25 MG TABLET ONE (22:16)
[2020-12-06] MEDS: HEPARIN 5000 UNIT/ML 1 ML VIAL SQ SCH ×3 (01:00→17:00)
[2020-12-06] MEDS ORDERED: HEPARIN 5000 UNIT/ML 1 ML VIAL ONE ×3 (02:08→16:47)
[2020-12-06 03:15] LABS: Absolute Lymphocytes (CBC) 0.9 K/uL (0.7-4.9); Basophils % 0.2 % (0-1.3); Hematocrit 25.4 % (39.6-49.0); Lymphocytes % 7.4 % (15.3-44.8); MPV 9.7 fL (7.6-11.3); RBC Red Blood Cell Count 2.82 M/uL (4.33-5.43)
[2020-12-06 03:43] LABS: Bilirubin Total 0.6 mg/dL (0.2-1.0); Potassium 4.5 mmol/L (3.5-5.1); Protein, Total 7.6 g/dL (6.4-8.2)
[2020-12-06 05:06] LABS: Blood Morphology Comment NOT SEEN (NOT SEEN); Platelet Estimate ADEQ
[2020-12-06] MEDS: IVERMECTIN 3 MG TABLET PO SCH (08:00)
--- NOTE | 2020-12-06 08:47 | P.HP ---
Certification for Inpatient Patient admitted to: Inpatient With expected LOS: >2 Midnights Practitioner: I am a practitioner with admitting privileges, knowledge of patient current condition, hospital course, and medical plan of care. Services: Services provided to patient in accordance with Admission requirements found in Title 42 Section 412.3 of the Code of Federal Regulations Patient History Date of Service: 12/06/20 Primary Care Provider: aleks Reason for admission: covid pneumonia, acute on chronic renal failure History of Present Illness: Patient established care with me Sunday. Came in with abdominal pain. He has stage 4 ckd. Has progressed to stage 5. He is not able to give a history. Repeatedly asks for a [place] speaker. However our SURGERY SCHEDULER in the office speaks fluent [place]. The patient did not understand her either. The patient tested positive for covid. Was seen by Dr. Zazueta and plans for dialysis. Initially she wanted him transferred for continuous dialysis after a cardiac cath(he has an elevated troponin) However the patient was not able to be transferred Allergies No Known Allergies Allergy (Verified 08/09/20 11:02) Home Medications: Amlodipine [Norvasc*] 10 mg PO DAILY #30 tab 11/20/20 Atorvastatin Calcium [Lipitor] 40 mg PO BEDTIME #30 tab 11/20/20 Calcitrol [Rocaltrol*] 0.25 mcg PO DAILY #30 cap 11/20/20 Cholecalciferol (Vitamin D3) [Vitamin D 5,000 IU Cap*] 5,000 unit PO DAILY #30 cap 11/20/20 Clopidogrel Bisulfate [Plavix*] 75 mg PO DAILY #30 tablet 11/20/20 Doxazosin [Cardura*] 2 mg PO BID #60 tab 11/20/20 Famotidine [Pepcid*] 20 mg PO Q48H #15 tab 11/20/20 Ferrous Sulfate [Ferrous Sulfate*] 325 mg PO BID #60 tab 11/20/20 Furosemide [Lasix*] 20 mg PO BIDL #60 tab 11/20/20 Hydralazine HCl [Apresoline] 100 mg PO TID #180 tablet 11/20/20 Sodium Bicarbonate 650 mg PO BID #60 tablet 11/20/20 - Past Medical/Surgical History Diabetic: Yes -: hypertension -: hyperlipidemia -: NIDDM -: CVA -: NSTEMI 04/2020 -: Appendectomy Psychosocial/ Personal History: Patient lives with family - Social History Smoking Status: Unknown if ever smoked Alcohol use: No CD- Drugs: No Caffeine use: Yes Review of Systems 10-point ROS is otherwise unremarkable Respiratory: Shortness of Breath Gastrointestinal: Abdominal Pain Physical Examination - Vital Signs Blood Pressure: 171/81 Pulse: 66 Respirations: 18 Pulse Ox (%): 96 - Physical Exam General: Alert, In no apparent distress HEENT: Atraumatic, PERRLA, Mucous membr. moist/pink, EOMI, Sclerae nonicteric Neck: Supple, 2+ carotid pulse no bruit, No LAD, Without JVD or thyroid abnormality Respiratory: Clear to auscultation bilaterally, Normal air movement Cardiovascular: Regular rate/rhythm, Normal S1 S2 Gastrointestinal: Normal bowel sounds, No tenderness Musculoskeletal: No tenderness Integumentary: No rashes Neurological: Normal gait, Normal speech, Normal strength at 5/5 x4 extr, Normal tone, Normal affect Lymphatics: No axilla or inguinal lymphadenopathy Assessment and Plan - Problems (Diagnosis) (1) COVID-19 Current Visit: Yes Status: Acute Plan: Have discussed the patient with Dr. Morton. Will start him on the protochol. Have told the patient several times in [place]. He still does not understand. The patient is stable on 6 lts nc. (2) CKD (chronic kidney disease) Current Visit: No Status: Chronic Plan: Most likely he will need to be started on Dialysis this admission. He does not seem to understand this. The patient just repeats that he takes his medications. Unfortunately he has been stage 4 since April. Without good outpatient follow up Qualifiers: Chronic kidney disease stage: stage 5, not on chronic dialysis Qualified Code(s): N18.5 - Chronic kidney disease, stage 5 (3) Diabetes mellitus Current Visit: No Status: Chronic Plan: will keep him on sliding scale insulin. Especially as the patient has to be on soulmedrol. Qualifiers: Diabetes mellitus type: type 2 Diabetes mellitus long filler cigar roller machine insulin use: with mcc use Diabetes mellitus complication status: without complication Qualified Code(s): E11.9 - Type 2 diabetes mellitus without complications (4) Hypertension Current Visit: No Status: Chronic Plan: restart his home medications. Qualifiers: Hypertension type: primary hypertension Qualified Code(s): I10 - Essential (primary) hypertension (5) NSTEMI (non-ST elevated myocardial infarction) Current Visit: No Status: Acute Plan: May need a cath. However will manage him medically at this time. covid and ckd stage 5 elevates troponin. He does not report chest pain. Will put in a consult for Dr. Johnson. Will start asa and plavix as well. Discharge Plan: Home Plan to discharge in: Greater than 2 days - Advance Directives Does patient have a Living Will: No Does patient have a Durable POA for Healthcare: No - Code Status/Comfort Care Code Status Assessed: Yes Code Status: Full Code Critical Care: No Time Spent Managing Pts Care (In Minutes): 75
[2020-12-06] MEDS ORDERED: AMLODIPINE 10 MG TAB ONE (08:48)
[2020-12-06] MEDS ORDERED: HYDRALAZINE HCL 25 MG TABLET ONE ×4 (08:49→21:52)
[2020-12-06] MEDS ORDERED: CLOPIDOGREL 75 MG TABLET ONE (08:49)
[2020-12-06] MEDS ORDERED: METHYLPREDNISOLONE 40 MG INJ ONE ×3 (08:50→21:40)
[2020-12-06] MEDS ORDERED: ASCORBIC ACID 500 MG TABLET ONE (08:51)
[2020-12-06] MEDS ORDERED: ZINC SULFATE 220 MG CAP ONE (08:51)
[2020-12-06] MEDS: ZINC SULFATE 220 MG CAP PO SCH (09:00)
[2020-12-06] MEDS: AMLODIPINE 10 MG TAB PO SCH (09:00)
[2020-12-06] MEDS: DRISDOL (VITAMIN D=ERGOCALCIFEROL) 50000 UNIT CAP PO SCH (09:00)
[2020-12-06] MEDS: HYDRALAZINE HCL 25 MG TABLET PO SCH ×3 (09:00→21:00)
[2020-12-06] MEDS: THIAMINE HCL 100 MG TABLET PO SCH (09:00)
[2020-12-06] MEDS: METHYLPREDNISOLONE 40 MG INJ IV SCH ×3 (09:00→21:00)
[2020-12-06] MEDS: CLOPIDOGREL 75 MG TABLET PO SCH (09:00)
[2020-12-06] MEDS: ASCORBIC ACID 500 MG TABLET PO SCH (09:00)
[2020-12-06] MEDS: CALCITROL 0.25 MCG CAP PO SCH (09:00)
[2020-12-06] MEDS: FERROUS SULFATE 325 MG TAB PO SCH ×2 (09:00→21:00)
[2020-12-06] MEDS ORDERED: MULTIVITAMIN TAB PO ONE (10:18)
--- NOTE | 2020-12-06 13:07 | RAD REPORT ---
EXAM DESCRIPTION: CT - Abdomen Pelvis Wo Contrast - 12/05/2020 6:38 am CLINICAL HISTORY: The patient is 75 years old and is Male; Abd pain;Constipation TECHNIQUE: Axial computed tomography images of the abdomen and pelvis without intravenous contrast. Sagittal and coronal reformatted images were created and reviewed. This CT exam was performed usi ng one or more of the following dose reduction techniques: automated exposure control, adjustment o f the mA and/or kV according to patient size, and/or use of iterative reconstruction technique. COMPARISON: CT abdomen pelvis November 16, 2020. FINDINGS: Lung bases: See below. Pleural space: Moderate bilateral pleural effusions. Bilateral lower lobe compressive atelectasi s. Heart: Cardiomegaly. ABDOMEN: Liver: Unremarkable. Gallbladder and bile ducts: Unremarkable. No calcified stones. No ductal dilation. Pancreas: Unremarkable. No ductal dilation. Spleen: Unremarkable. No splenomegaly. Adrenals: Unremarkable. No mass. Kidneys and ureters: Bilateral perinephric stranding, nonspecific. No hydronephrosis, nephrolith iasis or ureter stone. Stomach and bowel: Rectosigmoid stool without colon distention. No findings to suggest colitis. No bowel dilatation or obstruction. No bowel wall thickening. PELVIS: Appendix: The appendix is not visualized. No pericecal inflammation to suggest acute appendiciti s. Bladder: Bladder is not well distended. No stones. Reproductive: Prostate gland enlargement. ABDOMEN and PELVIS: Intraperitoneal space: Unremarkable. No free air. No significant fluid collection. Bones/joints: No acute fracture visualized. No dislocation. Soft tissues: Unremarkable. Vasculature: Unremarkable. No abdominal aortic aneurysm. Lymph nodes: No pathologically enlarged lymph nodes. IMPRESSION: 1. Rectosigmoid stool without colon distention. No findings to suggest colitis. 2. Moderate bilateral pleural effusions. Bilateral lower lobe compressive atelectasis. Electronically signed by: Marylu Hannah MD 12/05/2020 4:40 AM CDT Due to temporary technical issues with the PACS/Fluency reporting system, reports are being signed by the in house radiologist without review as a courtesy to ensure prompt reporting. The interpreting r adiologist is fully responsible for the content of the report.
[2020-12-06 19:38] VITALS: BMI 24.3
[2020-12-06] MEDS: ATORVASTATIN 40 MG TAB PO SCH (21:00)
[2020-12-06] MEDS ORDERED: ATORVASTATIN 20 MG TAB ONE (21:40)
[2020-12-06] MEDS ORDERED: FERROUS SULFATE 325 MG TAB PO ONE (21:52)
--- NOTE | 2020-12-06 22:11 | P.CNS ---
Date of Consult: 12/06/20 Reason for Consult: COVID pneumonia Primary Care Provider: florencia Chief Complaint: covid pneumonia, acute on chronic renal failure History of Present Illness: AGe 75. AW COVID penumonia and stage 4 renal fialumakenzie,fijian speaker. pos for COVID Allergies No Known Allergies Allergy (Verified 08/09/20 11:02) Home Medications: Amlodipine [Norvasc*] 10 mg PO DAILY #30 tab 11/20/20 Atorvastatin Calcium [Lipitor] 40 mg PO BEDTIME #30 tab 11/20/20 Calcitrol [Rocaltrol*] 0.25 mcg PO DAILY #30 cap 11/20/20 Cholecalciferol (Vitamin D3) [Vitamin D 5,000 IU Cap*] 5,000 unit PO DAILY #30 cap 11/20/20 Clopidogrel Bisulfate [Plavix*] 75 mg PO DAILY #30 tablet 11/20/20 Doxazosin [Cardura*] 2 mg PO BID #60 tab 11/20/20 Famotidine [Pepcid*] 20 mg PO Q48H #15 tab 11/20/20 Ferrous Sulfate [Ferrous Sulfate*] 325 mg PO BID #60 tab 11/20/20 Furosemide [Lasix*] 20 mg PO BIDL #60 tab 11/20/20 Hydralazine HCl [Apresoline] 100 mg PO TID #180 tablet 11/20/20 Sodium Bicarbonate 650 mg PO BID #60 tablet 11/20/20 - Past Medical/Surgical History Diabetic: Yes -: hypertension -: hyperlipidemia -: NIDDM -: CVA -: NSTEMI 04/2020 -: Appendectomy Psychosocial/ Personal History: Patient lives with family - Social History Smoking Status: Never smoker Alcohol use: No CD- Drugs: No Caffeine use: Yes Review of Systems General: Weakness Respiratory: Shortness of Breath Physical Examination Temp Pulse Resp BP Pulse Ox 98.2 F 90 17 112/68 97 12/06/20 20:50 12/06/20 16:00 12/06/20 20:50 12/06/20 20:50 12/06/20 20:50 General: Alert, Oriented x3, Cooperative - Problems (1) Pneumonia due to COVID-19 virus Status: Acute Plan: age 75 ESRD will requite dialysis. pos for COVID poss COVID penuonia vs volume overload/ O2 satisfactory/ DW Florencia, low dose anticoag, ivermectin. steroids/ Remdesmir/Stabelso far/ troponin elevated sec to Renal failure Vs COVIE / will need OP workup
[2020-12-07] MEDS: HEPARIN 5000 UNIT/ML 1 ML VIAL SQ SCH ×3 (00:49→16:59)
--- NOTE | 2020-12-07 02:54 | PN ---
Date of Progress Note: 12/06/2020 Chief Complaint: Advanced chronic kidney disease, congestive heart failure, cardiorenal syndrome, ac alisson on chronic kidney injury associated with shortness of breath. History Of Present Illness: The patient was found to have [id number] myocardial infarction and COVID pneumonia. He denies dysuria, hematuria. Denies renal colic. The patient was consulted by [facility] Service for COVID pneumonia and Cardiology evaluated the patient. The patient refused to st art dialysis during this admission and he refused to have catheter placed for dialysis access. Review of Systems: Denies chest pain or palpitation. Physical Examination: Lungs: Normal respiratory effort. Heart: S1, S2. Abdomen: Soft. Extremities: Slight edema. Impression And Plan: 1.Chronic kidney disease. The patient has azotemia. Potassium level is within normal limits. Cont inue to monitor electrolytes. Avoid nephrotoxic medication. 2.Diabetes mellitus with renal manifestation. Continue insulin. 3.COVID pneumonia. Recommendation from primary team and Pulmonary service. 4.Elevated troponin. Cardiac workup is pending. MARITA/SAGE Voice ID: [id number] Report ID: [id number]
[2020-12-07 06:14] LABS: Absolute Lymphocytes (CBC) 0.8 K/uL (0.7-4.9); Basophils % 0.3 % (0-1.3); Hematocrit 23.8 % (39.6-49.0); Lymphocytes % 4.5 % (15.3-44.8); MPV 9.3 fL (7.6-11.3); RBC Red Blood Cell Count 2.64 M/uL (4.33-5.43)
[2020-12-07 06:35] LABS: Albumin 2.9 g/dL (3.4-5.0); Bilirubin Total 0.6 mg/dL (0.2-1.0); Potassium 4.5 mmol/L (3.5-5.1); Protein, Total 7.1 g/dL (6.4-8.2)
[2020-12-07] MEDS: ZINC SULFATE 220 MG CAP PO SCH (08:17)
[2020-12-07] MEDS: HYDRALAZINE HCL 25 MG TABLET PO SCH ×3 (08:18→20:53)
[2020-12-07] MEDS: CALCITROL 0.25 MCG CAP PO SCH (08:18)
[2020-12-07] MEDS: THIAMINE HCL 100 MG TABLET PO SCH (08:18)
[2020-12-07] MEDS: CLOPIDOGREL 75 MG TABLET PO SCH (08:18)
[2020-12-07] MEDS: FERROUS SULFATE 325 MG TAB PO SCH ×2 (08:18→20:53)
[2020-12-07] MEDS: ASCORBIC ACID 500 MG TABLET PO SCH (08:18)
[2020-12-07] MEDS: AMLODIPINE 10 MG TAB PO SCH (08:18)
[2020-12-07] MEDS: METHYLPREDNISOLONE 40 MG INJ IV SCH ×3 (08:19→20:53)
[2020-12-07] MEDS ORDERED: REMDESIVIR (EUA) 200 MG in NA CHLORIDE 0.9% 250 ML IV ONE (09:00)
[2020-12-07] MEDS: DRISDOL (VITAMIN D=ERGOCALCIFEROL) 50000 UNIT CAP PO SCH (09:00)
--- NOTE | 2020-12-07 10:02 | P.PN ---
Subjective Date of Service: 12/07/20 Primary Care Provider: aleks Chief Complaint: covid pneumonia, acute on chronic renal failure Subjective: No new changes (no complaints of increased shortness of breath.) Physical Examination - Vital Signs Temperature: 97.0 F Blood Pressure: 136/67 Pulse: 72 Respirations: 20 Pulse Ox (%): 94 - Physical Exam General: Other (appears as his stated age) HEENT: Atraumatic, Normocephalic Neck: Supple, JVD not distended Respiratory: Normal air movement Cardiovascular: No rubs, No murmurs Gastrointestinal: Soft and benign Musculoskeletal: No clubbing Integumentary: No warmth Neurological: Normal speech, Normal tone Urinary: Other (no bladder distention) - Studies Microbiology Data (last 24 hrs): 12/05/20 05:28 Blood - Blood Gram Stain - Final 12/05/20 05:21 Blood - Blood Gram Stain - Final Assessment And Plan - Plan # 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 Renal US showed advanced CKD changes +Subnephrotic proteinuria w/ random UPCR 2.9g iPTH sig elevated at 206, indicative of advanced CKD state He now agrees to dialysis Permacath placement tomorrow morning followed by the dialysis initiation HD daily 3 starting on 12/08/2020 then 3 times weekly thereafter NPO after midnight AVF planning as outpt Renal diet Monitor renal panel # 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 BP ok Continue current antihypertensive medication regimen # CAD, NSTEMI Cont cardioprudent meds May proceed w/ LHC whenever indicated # COVID pneumonia Receiving remdesivir until 2120 Receiving ivermectin and steroids # Anemia Iron panel shows iron def--> cont FeSO4 po bid; defer IV iron Retacrit 10,000 u SQ received on 11/18; resume Retacrit qMWF starting on 12/10/2020 Monitor H/H # Secondary hyperPTH Cont calcitriol 0.25 mcg po daily Start high dose D repletion as below # Vit D deficiency Resume D3 5000 u po daily Recheck serum iPTH + 25OHD level in 3 mos # Renal osteodystrophy Serum Ca & Phos at goal, monitor # Metabolic acidosis Correction via hemodialysis # DM2 Mngt per primary team
--- NOTE | 2020-12-07 12:40 | P.PN ---
Subjective Date of Service: 12/07/20 Primary Care Provider: aleks Chief Complaint: covid pneumonia, acute on chronic renal failure Subjective: No new changes Review of Systems 10-point ROS is otherwise unremarkable Physical Examination - Vital Signs Temperature: 97.0 F Blood Pressure: 138/64 Pulse: 67 Respirations: 20 Pulse Ox (%): 96 - Physical Exam General: Alert, In no apparent distress HEENT: Atraumatic, PERRLA, EOMI Neck: Supple, JVD not distended Respiratory: Clear to auscultation bilaterally, Normal air movement Cardiovascular: Regular rate/rhythm, Normal S1 S2 Gastrointestinal: Normal bowel sounds, No tenderness Musculoskeletal: No tenderness Integumentary: No rashes Neurological: Normal speech, Normal tone, Normal affect Lymphatics: No axilla or inguinal lymphadenopathy - Studies Microbiology Data (last 24 hrs): 12/05/20 05:28 Blood - Blood Gram Stain - Final 12/05/20 05:21 Blood - Blood Gram Stain - Final Assessment & Plan - Problems (Diagnosis) (1) COVID-19 Current Visit: Yes Status: Acute Plan: Have discussed the patient with Dr. Morton. Will start him on the protochol. Have told the patient several times in [place]. He still does not understand. The patient is stable on 6 lts nc. (2) CKD (chronic kidney disease) Current Visit: No Status: Chronic Plan: Most likely he will need to be started on Dialysis this admission. He does not seem to understand this. The patient just repeats that he takes his medications. Unfortunately he has been stage 4 since April. Without good outpatient follow up Qualifiers: Chronic kidney disease stage: stage 5, not on chronic dialysis Qualified Code(s): N18.5 - Chronic kidney disease, stage 5 (3) Diabetes mellitus Current Visit: No Status: Chronic Plan: will keep him on sliding scale insulin. Especially as the patient has to be on soulmedrol. Qualifiers: Diabetes mellitus type: type 2 Diabetes mellitus [facility] insulin use: with termite control servicer use Diabetes mellitus complication status: without complication Qualified Code(s): E11.9 - Type 2 diabetes mellitus without complications (4) Hypertension Current Visit: No Status: Chronic Plan: restart his home medications. Qualifiers: Hypertension type: primary hypertension Qualified Code(s): I10 - Essential (primary) hypertension (5) NSTEMI (non-ST elevated myocardial infarction) Current Visit: No Status: Acute Plan: May need a cath. However will manage him medically at this time. covid and ckd stage 5 elevates troponin. He does not report chest pain. Will put in a consult for Dr. Johnson. Will start asa and plavix as well. Discharge Plan: Home Plan to discharge in: Greater than 2 days - Code Status/Comfort Care Code Status Assessed: No Critical Care: No Time Spent Managing Pts Care (In Minutes): 20
[2020-12-07] MEDS: ATORVASTATIN 40 MG TAB PO SCH (20:53)
[2020-12-08] MEDS: HEPARIN 5000 UNIT/ML 1 ML VIAL SQ SCH ×3 (01:00→17:00)
[2020-12-08 06:33] LABS: Absolute Lymphocytes (CBC) 0.5 K/uL (0.7-4.9); Hematocrit 23.7 % (39.6-49.0); Lymphocytes % 2.4 % (15.3-44.8); MPV 9.6 fL (7.6-11.3); RBC Red Blood Cell Count 2.63 M/uL (4.33-5.43)
[2020-12-08 06:53] LABS: Albumin 3.1 g/dL (3.4-5.0); Bilirubin Direct 0.2 mg/dL (0-0.2); Bilirubin Total 0.5 mg/dL (0.2-1.0); C-Reactive Protein 8.76 mg/L (<3.00); Protein, Total 7.2 g/dL (6.4-8.2)
[2020-12-08 07:03] LABS: Albumin 3.1 g/dL (3.4-5.0); Bilirubin Total 0.5 mg/dL (0.2-1.0); Magnesium 3.3 mg/dL (1.8-2.4); Phosphorus 6.3 mg/dL (2.5-4.9); Potassium 4.7 mmol/L (3.5-5.1); Protein, Total 7.1 g/dL (6.4-8.2)
[2020-12-08] MEDS: THIAMINE HCL 100 MG TABLET PO SCH (09:00)
[2020-12-08] MEDS: CLOPIDOGREL 75 MG TABLET PO SCH (09:00)
[2020-12-08] MEDS: ZINC SULFATE 220 MG CAP PO SCH (09:00)
[2020-12-08] MEDS: VITAMIN D 5,000 UNIT CAP PO SCH (09:00)
[2020-12-08] MEDS: ASCORBIC ACID 500 MG TABLET PO SCH (09:00)
[2020-12-08] MEDS: CALCITROL 0.25 MCG CAP PO SCH (09:00)
[2020-12-08] MEDS: FERROUS SULFATE 325 MG TAB PO SCH ×2 (09:00→20:59)
--- NOTE | 2020-12-08 09:10 | ECHO ---
HEIGHT: 5 ft 8 in WEIGHT: 164 lb 3.2 oz DATE OF STUDY: 12/07/[address]: Dusty Glover MD 2-DIMENSIONAL: YES M.MODE: YES DOPPLER: YES COLOR FLOW: YES TDS: NO PORTABLE: NO DEFINITY: NO BUBBLE STUDY: NO DIAGNOSIS: CONGESTIVE HEART FAILURE CARDIAC HISTORY: CATHERIZATION: SURGERY: PROSTHETIC VALVE: PACEMAKER: MEASUREMENTS (cm) DIASTOLIC (NORMALS) SYSTOLIC (NORMALS) IVSd 0.9 (0.6-1.2) LA Diam 3.9 (1.9-4.0) LVEF 65% LVIDd 5.3 (3.5-5.7) LVIDs 3.4 (2.0-3.5) %FS 36% LVPWd 1.1 (0.6-1.2) Ao Diam 3.0 (2.0-3.7) 2 DIMENSIONAL ASSESSMENT: RIGHT ATRIUM: NORMAL LEFT ATRIUM: NORMAL RIGHT VENTRICLE: NORMAL LEFT VENTRICLE: NORMAL TRICUSPID VALVE: NORMAL MITRAL VALVE: NORMAL PULMONIC VALVE: NORMAL AORTIC VALVE: NORMAL PERICARDIAL EFFUSION: NONE AORTIC ROOT: NORMAL LEFT VENTRICULAR WALL MOTION: NORMAL. DOPPLER/COLOR FLOW: MILD TRICUSPID REGURGITATION - RIGHT VENTRICULAR SYSTOLIC PRESSURE 59mmHg. COMMENTS: SEVERE PULMONARY HYPERTENSION - RIGHT VENTRICULAR SYSTOLIC PRESSURE 59mmHg. NORMAL LEFT VENTRICULAR EJECTION FRACTION AND SIZE. NO WALL MOTION ABNORMALITY. TRACE OF PERICARDIAL EFFUSION. TECHNOLOGIST: JONAS LOUIS
[2020-12-08] MEDS: AMLODIPINE 10 MG TAB PO SCH (09:19)
[2020-12-08] MEDS: IVERMECTIN 3 MG TABLET PO SCH (09:20)
[2020-12-08] MEDS: METHYLPREDNISOLONE 40 MG INJ IV SCH ×3 (09:20→20:59)
[2020-12-08] MEDS: HYDRALAZINE HCL 25 MG TABLET PO SCH ×3 (09:20→20:59)
[2020-12-08] MEDS: REMDESIVIR (EUA) 100 MG in NA CHLORIDE 0.9% 250 ML IV SCH (09:21)
[2020-12-08 09:31] LABS: Blood Morphology Comment NOT SEEN (NOT SEEN); Platelet Estimate ADEQ
--- NOTE | 2020-12-08 13:20 | P.PN ---
Subjective Date of Service: 12/08/20 Primary Care Provider: aleks Chief Complaint: covid pneumonia, acute on chronic renal failure Subjective: No new changes Review of Systems 10-point ROS is otherwise unremarkable Respiratory: Shortness of Breath Physical Examination - Vital Signs Temperature: 97.4 F Blood Pressure: 133/66 Pulse: 80 Respirations: 20 Pulse Ox (%): 94 - Physical Exam General: Alert, In no apparent distress HEENT: Atraumatic, PERRLA, EOMI Neck: Supple, JVD not distended Respiratory: Clear to auscultation bilaterally, Normal air movement Cardiovascular: Regular rate/rhythm, Normal S1 S2 Gastrointestinal: Normal bowel sounds, No tenderness Musculoskeletal: No tenderness Integumentary: No rashes Neurological: Normal speech, Normal tone, Normal affect Lymphatics: No axilla or inguinal lymphadenopathy - Studies Microbiology Data (last 24 hrs): 12/05/20 05:28 Blood - Blood Gram Stain - Final Assessment & Plan - Problems (Diagnosis) (1) COVID-19 Current Visit: Yes Status: Acute Plan: Have discussed the patient with Dr. Morton. Will start him on the protochol. Have told the patient several times in Azeri. He still does not understand. The patient is stable on 6 lts nc. (2) CKD (chronic kidney disease) Current Visit: No Status: Chronic Plan: Most likely he will need to be started on Dialysis this admission. He does not seem to understand this. The patient just repeats that he takes his medications. Unfortunately he has been stage 4 since April. 12/08 Plans for a cath placement and dialysis with Dr. Quintana. Patient is fussing that he wants to eat. Have told him he needs this. He threatened that he will leave. Which is within his rights. I simple informed him that he would most likely at home without covid treatment or dialysis Qualifiers: Chronic kidney disease stage: stage 5, not on chronic dialysis Qualified Code(s): N18.5 - Chronic kidney disease, stage 5 (3) Diabetes mellitus Current Visit: No Status: Chronic Plan: will keep him on sliding scale insulin. Especially as the patient has to be on soulmedrol. Qualifiers: Diabetes mellitus type: type 2 Diabetes mellitus halfway insulin use: with technician terminal and repeater use Diabetes mellitus complication status: without complication Qualified Code(s): E11.9 - Type 2 diabetes mellitus without complications (4) Hypertension Current Visit: No Status: Chronic Plan: restart his home medications. Qualifiers: Hypertension type: primary hypertension Qualified Code(s): I10 - Essential (primary) hypertension (5) NSTEMI (non-ST elevated myocardial infarction) Current Visit: No Status: Acute Plan: May need a cath. However will manage him medically at this time. covid and ckd stage 5 elevates troponin. He does not report chest pain. Will put in a consult for Dr. Johnson. Will start asa and plavix as well. Discharge Plan: Home Plan to discharge in: Greater than 2 days - Code Status/Comfort Care Code Status Assessed: No Physician Review: Patient Assessed, Agree with Above Assessment and Plan Critical Care: No Time Spent Managing Pts Care (In Minutes): 25
--- NOTE | 2020-12-08 13:31 | CON ---
Date of Consultation: 12/07/2020 Reason For Consultation: Elevated troponin. History Of Present Illness: Mr. Urias is 75, was seen in the hospital recently in October 2020 and abnor mal stress test, atypical chest pain, elevated troponin, severe renal failure, dialysis was not start ed, then we deferred heart catheterization because of the kidney failure. Comes back with BALTAID dustin long at this time with elevated troponin of , hemoglobin is 8.1, creatinine is 8.34, white count of 18,000. BNP of 26,908. His echocardiogram in October 2020 was normal. Another echocardiogra m is pending. Nephrology consultation is pending. Hopefully, he is going back on hemodialysis . Past Medical History: Includes diabetes, hypertension, CVA, dyslipidemia, and non-ST elevation myoca rdial infarction in April 2020. Allergies: NONE. Review of Systems: Negative. Social History: Negative. Family History: Negative. Medications: Include Norvasc, Lipitor, Cardura, Plavix, , iron, Lasix, hydralazine, Physical Examination: Vital Signs: Stable, afebrile. HEENT: Negative. Neck: Supple with no bruit. Chest: Reveals rales at both bases. Cardiac: Revealed a regular rhythm and rate with S4 gallops. Abdomen: Benign. Extremities: Revealed no clubbing, cyanosis, or edema. Diagnostic Data: As stated earlier. Impression And Plan: 1.COVID pneumonia. 2.Non-ST elevation myocardial infarction. 3.Renal failure. 4.Diabetes. 5.Hypertension. 6.History of cerebrovascular accident. 7.Dyslipidemia. 8.History of non-ST segment elevation myocardial infarction in April 2020. I will repeat an echo. I will do a catheterization only after hemodialysis . Continue other regimen at this po int. Continue anticoagulation and continue his home medications to include . We will cont inue to follow him. ANGIE/PADMAL Voice ID: [id number] Report ID: [id number]
[2020-12-08] MEDS ORDERED: NA CHLORIDE 0.9% 1,000 ML ONE (13:33)
[2020-12-08] MEDS ORDERED: CEFAZOLIN SODIUM 1 GM/VIAL ONE (14:05)
--- NOTE | 2020-12-08 14:28 | PN ---
Date of Progress Note: 12/08/2020 Subjective: The patient was admitted with acute kidney injury on advanced chronic kidney disease. T he patient had COVID. The patient agreed on starting dialysis, waiting for dialysis catheter placeme nt. The patient denied any chest pain. Physical Examination: General: When I saw the patient; the patient lying in bed, comfortable, not on any distress. Vital Signs: Blood pressure 133/66, pulse of 80, afebrile. Chest: Crackles bilateral. Heart: S1, S2. Regular. Abdomen: Soft, nontender. Extremities: No edema. Laboratory Data: WBC 22.3, H and H 8/23.7. Sodium 135, potassium 4.7, bicarb 20, BUN 114, creatinin e 8.8, calcium 8.9, phosphorus 6.3, magnesium 3.3, albumin 3.1. Corrected calcium is 9.7. Current Medications: The patient on include remdesivir, Plavix, atorvastatin, amlodipine, hydralazin e, calcitriol, thiamin, cholecalciferol. Assessment And Plan: 1.Chronic kidney disease advanced progression to end-stage renal disease. Waiting for [facility] ement to initiate dialysis. 2.Hypertension, not controlled, optimal. Continue current medications. 3.Secondary hyperparathyroidism. Continue calcitriol. We will start the patient on Tums. We will follow up. 4.Anemia of chronic kidney disease. We will continue Epogen. 5.Hyponatremia secondary to renal failure, going to be corrected with dialysis. SHAMEKA/SAGE Voice ID: [id number] Report ID: [id number]
[2020-12-08] MEDS ORDERED: HEPARIN 5000 UNIT/ML 1 ML VIAL ONE (15:54)
[2020-12-08] MEDS ORDERED: NS 0.9% VIAL 10 ML ONE (15:55)
[2020-12-08] MEDS ORDERED: LIDOCAINE 1% 20 ML MDV ONE (15:56)
[2020-12-08] MEDS ORDERED: NA CHLORIDE 0.9% 100 ML IV ONE (15:56)
[2020-12-08] MEDS: CALCIUM CARBONATE CHEW 500MG TAB PO SCH (16:30)
[2020-12-08] MEDS ORDERED: propofoL 200 MG/20 ML VIAL IV ONE (16:32)
[2020-12-08] MEDS ORDERED: MIDAZOLAM HCL 2 MG/2 ML INJ ONE (16:37)
--- NOTE | 2020-12-08 16:52 | P.OP ---
Behavioral Health Worker: Fabricio LEAVITT Preoperative diagnosis: ARF Postoperative diagnosis: same Primary procedure: RIJ Alejandro Secondary procedure: Fluoroscopy Anesthesia: MAC Estimated blood loss: min Specimen: none Findings: Normal Anatomy Complications: None Transferred to: Recovery Room Condition: Good
[2020-12-08] MEDS ORDERED: HYDROCODONE/APAP 5/325 MG TAB PO PRN (17:06)
--- NOTE | 2020-12-08 17:12 | RAD REPORT ---
EXAM DESCRIPTION: RAD - Fluoroscopy <1 Hour - 12/08/2020 4:59 pm FINDINGS: Two motion degraded portable C-arm views were obtained from a fluoroscopic assisted Tessio catheter placement procedure. Fluoro time was less than 0.1 minutes. Cumulative dose was 1.39 mGy.
--- NOTE | 2020-12-08 17:21 | RAD REPORT ---
EXAM DESCRIPTION: RAD - Chest Single View - 12/08/2020 5:16 pm CLINICAL HISTORY: S/P Tesio COMPARISON: December 05 TECHNIQUE: AP portable chest image was obtained 12/08/2020 5:16 pm . FINDINGS: Right-sided double-lumen Tessio catheter has been placed in good position. Short arm of th e catheter is proximal SVC with the long arm mid SVC. Pleural and parenchymal opacification present similar to comparison. No pneumothorax. Cardiomegaly re brianda. IMPRESSION: Right-sided Tessio catheter in good position. No pneumothorax.
--- NOTE | 2020-12-08 20:19 | PREOPCON ---
Date of Consultation: 12/07/2020 Reason: Patient needs dialysis. History Of Present Illness: The patient is a 75-year-old gentleman who has advanced renal disease, c rachael with COVID pneumonia. He has acute renal failure on top of chronic renal failure and the patient initially was refusing dialysis but now he agrees and he requires it. He is awake, alert. He is a little short of breath. No sore throat, runny nose, cough, headaches, or dizziness. No chest pain. No fever or chills. Review of Systems: Otherwise unremarkable. Past Medical History: Hypertension, hyperlipidemia, type 2 diabetes, history of stroke. Past Surgical History: Appendectomy. Allergies: NO ALLERGIES. Social History: Does not smoke or drink alcohol. Family History: Noncontributory. Physical Examination: Vital Signs: Stable. He is currently afebrile. General: He is awake, alert, and oriented x3. Head and Neck: Cranial nerves 2 through 12 are grossly within normal limits. No neck masses. No JV D. Throat clear. Neck: Supple. Chest: Clear. Heart: S1, S2. Abdomen: Soft. Extremities: Neurovascularly intact. Neurologic: Nonfocal. Laboratory Data: White count is 22.3, however patient did start high-dose steroids on the 16th and w john count has progressively gone up. His H and H are 8 and 23.7, platelets of 330. INR is 1.14, BU N is 114, creatinine is 8.84. Assessment: Acute renal failure in a patient who is going to require long-term dialysis. Recommendation: The patient was initially hesitant for signing the anesthetic consent. Plan of care and risks, benefits, alternatives were discussed in detail with the as well as the patient. Af ter further discussion, they have agreed to proceed with the procedure. They understand benefits, ri sks, and alternatives and agree. We will place a tunneled catheter in the right IJ. /MODL Voice ID: [id number] Report ID: [id number]
[2020-12-08] MEDS: ATORVASTATIN 40 MG TAB PO SCH (20:59)
[2020-12-09] MEDS: HEPARIN 5000 UNIT/ML 1 ML VIAL SQ SCH ×3 (01:58→16:28)
--- NOTE | 2020-12-09 02:58 | OP ---
Date of Procedure: 12/08/2020 Surgeon: Ankush Cartwright MD Preoperative Diagnosis: Acute renal failure. Postoperative Diagnosis: Acute renal failure. Procedure: Placement of right IJ Tesio catheter, interpretation of intraoperative fluoroscopy. Estimated Blood Loss: Minimal. Specimen: None. Findings: Normal anatomy. Anesthesia: MAC. Complication: None. Disposition: The patient tolerated the procedure in stable condition and taken to Recovery in good g eneral condition. Procedure In Detail: The patient was brought to the OR and placed in supine position. MAC anesthesi a was begun. The patient was prepped and draped in usual sterile fashion. Lidocaine 1% was infiltra laci locally. An 18-gauge needle was used to access the right IJ vein. Guidewire was passed. Positi on was confirmed with fluoroscopy. Counterincision was made. Tunneling device was used to tunnel th e catheter between the 2 wounds and then Seldinger technique was used. Vein was dilated and tip of t he catheter was placed in the SVC under fluoroscopy. Then catheter was flushed with heparin and pack ed with heparin with good blood flow and then wound was closed with 3-0 chromic and 3-0 nylon was use d to secure the tube to the chest wall. Sterile dressing was applied. The patient was awakened and taken to Recovery in good general conditi on. Chest x-ray has been ordered. /MODL Voice ID: [id number] Report ID: [id number]
[2020-12-09 04:23] LABS: Albumin 3.1 g/dL (3.4-5.0); Bilirubin Direct 0.2 mg/dL (0-0.2); Bilirubin Total 0.7 mg/dL (0.2-1.0); Potassium 4.3 mmol/L (3.5-5.1); Protein, Total 6.9 g/dL (6.4-8.2)
[2020-12-09] MEDS: CALCIUM CARBONATE CHEW 500MG TAB PO SCH ×3 (07:30→15:53)
[2020-12-09] MEDS: THIAMINE HCL 100 MG TABLET PO SCH (10:09)
[2020-12-09] MEDS: CLOPIDOGREL 75 MG TABLET PO SCH (10:09)
[2020-12-09] MEDS: AMLODIPINE 10 MG TAB PO SCH (10:09)
[2020-12-09] MEDS: CALCITROL 0.25 MCG CAP PO SCH (10:09)
[2020-12-09] MEDS: ZINC SULFATE 220 MG CAP PO SCH (10:09)
[2020-12-09] MEDS: METHYLPREDNISOLONE 40 MG INJ IV SCH ×3 (10:09→20:17)
[2020-12-09] MEDS: FERROUS SULFATE 325 MG TAB PO SCH ×2 (10:09→20:18)
[2020-12-09] MEDS: REMDESIVIR (EUA) 100 MG in NA CHLORIDE 0.9% 250 ML IV SCH (10:09)
[2020-12-09] MEDS: VITAMIN D 5,000 UNIT CAP PO SCH (10:09)
[2020-12-09] MEDS: HYDRALAZINE HCL 25 MG TABLET PO SCH ×3 (10:10→20:18)
[2020-12-09] MEDS: ASCORBIC ACID 500 MG TABLET PO SCH (10:14)
--- NOTE | 2020-12-09 12:23 | P.PN ---
Subjective Date of Service: 12/09/20 Primary Care Provider: aleks Chief Complaint: covid pneumonia, acute on chronic renal failure Subjective: Improving (Patient has his cath and recieved dialysis yesterday) Review of Systems 10-point ROS is otherwise unremarkable Physical Examination - Vital Signs Temperature: 97.7 F Blood Pressure: 146/69 Pulse: 79 Respirations: 20 Pulse Ox (%): 96 - Physical Exam General: Alert, In no apparent distress HEENT: Atraumatic, PERRLA, EOMI Neck: Supple, JVD not distended Respiratory: Clear to auscultation bilaterally, Normal air movement Cardiovascular: Regular rate/rhythm, Normal S1 S2 Gastrointestinal: Normal bowel sounds, No tenderness Musculoskeletal: No tenderness Integumentary: No rashes Neurological: Normal speech, Normal tone, Normal affect Lymphatics: No axilla or inguinal lymphadenopathy Assessment & Plan - Problems (Diagnosis) (1) COVID-19 Current Visit: Yes Status: Acute Plan: Have discussed the patient with Dr. Morton. Will start him on the protochol. Have told the patient several times in [place]. He still does not understand. The patient is stable on 4 lts nc. 12/09 Patient is stable on ivermectin, solumedrol. Will start weaning him down. consult social professionals for home oxygen. Will consult with neela Portillo and Adalberto to plan for discharge. (2) CKD (chronic kidney disease) Current Visit: No Status: Chronic Plan: Most likely he will need to be started on Dialysis this admission. He does not seem to understand this. The patient just repeats that he takes his medications. Unfortunately he has been stage 4 since April. 12/09 Continue with dialysis. We need to see if we can manage out patient dialysis or if we should keep the patient during his quarantine. He tested positive on . Would consider discharging him in another 6 days via the 10 day protochol. Qualifiers: Chronic kidney disease stage: stage 5, not on chronic dialysis Qualified Code(s): N18.5 - Chronic kidney disease, stage 5 (3) Diabetes mellitus Current Visit: No Status: Chronic Plan: will keep him on sliding scale insulin. Especially as the patient has to be on soulmedrol. 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 Qualifiers: Hypertension type: primary hypertension Qualified Code(s): I10 - Essential (primary) hypertension (5) NSTEMI (non-ST elevated myocardial infarction) Current Visit: No Status: Acute Plan: May need a cath. However will manage him medically at this time. covid and ckd stage 5 elevates troponin. He does not report chest pain. Will put in a consult for Dr. Johnson. Will start asa and plavix as well. Discharge Plan: Home - Code Status/Comfort Care Code Status Assessed: No Physician Review: Patient Assessed, Agree with Above Assessment and Plan Critical Care: No Time Spent Managing Pts Care (In Minutes): 20
--- NOTE | 2020-12-09 15:25 | PN ---
Date of Progress Note: 12/09/2020 Subjective: The patient was admitted with COVID pneumonia. The patient had worsening in his kidney function. The patient was initiated on dialysis yesterday, tolerated the dialysis very well. Physical Examination: Vital Signs: Blood pressure 146/69, pulse of 79, afebrile. Chest: Clear to auscultation. Heart: S1, S2. Regular. Abdomen: Soft, nontender. Extremity: No edema. Laboratory Data: WBC 22.3. Hemoglobin of 8. Sodium 137, potassium 4.3, bicarb 22, BUN 97, creatini ne down to 7.3, calcium 8.6. Current Medications: The patient on include; 1.Remdesivir. 2.Plavix. 3.Epogen. 4.Heparin. 5.Calcium carbonate. 6.Atorvastatin. 7.Amlodipine 10 mg. 8.Hydralazine 100 t.i.d. 9.Solu-Medrol. Assessment And Plan: 1.Chronic kidney disease secondary to hypertension, nephrosclerosis, progression to end-stage renal disease. We initiated dialysis. We will do another session of dialysis today to establish better vo lume control and we will follow up the patient. 2.Hypertension. Given that the patient was initiated with a history of diabetes and cardiac disease , I will go ahead and decrease his hydralazine to 50 per 8 hours and we will start the patient on lis inopril and we will continue to monitor. Plan to keep titrating down the hydralazine and replace it with lisinopril. 3.Secondary hyperparathyroidism, stable. We will follow up phosphorus level. The patient was start ed on calcium carbonate. 4.Anemia of chronic kidney disease. Continue JOSS. 5.Diabetes as by primary. 6.Coronary artery disease as by primary. 7.COVID pneumonia. Continue current treatment. We will follow up with the primary. SHAMEKA/SAGE Voice ID: [id number] Report ID: [id number]
[2020-12-09] MEDS: ATORVASTATIN 40 MG TAB PO SCH (20:18)
[2020-12-10] MEDS: HEPARIN 5000 UNIT/ML 1 ML VIAL SQ SCH ×2 (01:37→08:50)
[2020-12-10 04:50] LABS: Bilirubin Direct 0.3 mg/dL (0-0.2); Bilirubin Total 0.8 mg/dL (0.2-1.0); Phosphorus 5.8 mg/dL (2.5-4.9); Protein, Total 6.9 g/dL (6.4-8.2)
--- NOTE | 2020-12-10 06:23 | P.PN ---
Subjective Date of Service: 12/10/20 Primary Care Provider: aleks Chief Complaint: covid pneumonia, acute on chronic renal failure Subjective: No new changes Physical Examination - Vital Signs Temperature: 97 F Blood Pressure: 157/68 Pulse: 60 Respirations: 16 Pulse Ox (%): 96 - Physical Exam General: Other (appears as his stated age) HEENT: Atraumatic, Normocephalic Neck: Supple, JVD not distended Respiratory: Normal air movement Cardiovascular: No rubs, No murmurs Gastrointestinal: Soft and benign Integumentary: No warmth Neurological: Normal tone Urinary: Other (no bladder distention) - Studies Microbiology Data (last 24 hrs): 12/05/20 05:21 Blood - Blood Aerobic Blood Culture - Final No growth in 5 days. 12/05/20 05:21 Blood - Blood Gram Stain - Final 12/05/20 05:28 Blood - Blood Aerobic Blood Culture - Final No growth in 5 days. 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 BP ok Continue current antihypertensive medication regimen # CAD, NSTEMI Cont cardioprudent meds May proceed w/ LHC whenever indicated # COVID pneumonia Received remdesivir, ivermectin and steroids # Anemia Iron panel shows iron def--> cont FeSO4 po bid; defer IV iron Retacrit 10,000 u SQ received on 11/18; resume Retacrit qMWF starting on 12/10/2020 Monitor H/H # Secondary hyperPTH Cont calcitriol 0.25 mcg po daily High dose D repletion as below # Vit D deficiency D3 5000 u po daily Recheck serum iPTH + 25OHD level in 3 mos # Renal osteodystrophy Serum Ca & Phos at goal, monitor # DM2 Mngt per primary team # Dispo Placement at [facility] [place] dialysis qTTS schedule ongoing Patient left AMA today Physician Review: Patient Assessed, Agree with Above Assessment and Plan
[2020-12-10] MEDS: CALCIUM CARBONATE CHEW 500MG TAB PO SCH ×2 (07:30→12:12)
[2020-12-10] MEDS: FERROUS SULFATE 325 MG TAB PO SCH (08:50)
[2020-12-10] MEDS: AMLODIPINE 10 MG TAB PO SCH (08:50)
[2020-12-10] MEDS: HYDRALAZINE HCL 25 MG TABLET PO SCH ×2 (08:50→12:12)
[2020-12-10] MEDS: METHYLPREDNISOLONE 40 MG INJ IV SCH ×2 (08:51→12:12)
[2020-12-10] MEDS: CALCITROL 0.25 MCG CAP PO SCH (08:51)
[2020-12-10] MEDS: ASCORBIC ACID 500 MG TABLET PO SCH (08:51)
[2020-12-10] MEDS: CLOPIDOGREL 75 MG TABLET PO SCH (08:51)
[2020-12-10] MEDS: THIAMINE HCL 100 MG TABLET PO SCH (08:51)
[2020-12-10] MEDS: VITAMIN D 5,000 UNIT CAP PO SCH (08:52)
[2020-12-10] MEDS: ZINC SULFATE 220 MG CAP PO SCH (08:52)
[2020-12-10] MEDS ORDERED: lisinopriL 20 MG TAB PO SCH (09:00)
--- NOTE | 2020-12-10 10:35 | P.PN ---
Subjective Date of Service: 12/10/20 Primary Care Provider: aleks Chief Complaint: covid pneumonia, acute on chronic renal failure Subjective: No new changes Review of Systems 10-point ROS is otherwise unremarkable Physical Examination - Vital Signs Temperature: 97.8 F Blood Pressure: 141/68 Pulse: 79 Respirations: 25 Pulse Ox (%): 93 - Physical Exam General: Alert, In no apparent distress HEENT: Atraumatic, PERRLA, EOMI Neck: Supple, JVD not distended Respiratory: Clear to auscultation bilaterally, Normal air movement Cardiovascular: Regular rate/rhythm, Normal S1 S2 Gastrointestinal: Normal bowel sounds, No tenderness Musculoskeletal: No tenderness Integumentary: No rashes Neurological: Normal speech, Normal tone, Normal affect Lymphatics: No axilla or inguinal lymphadenopathy - Studies Microbiology Data (last 24 hrs): 12/05/20 05:21 Blood - Blood Aerobic Blood Culture - Final No growth in 5 days. 12/05/20 05:21 Blood - Blood Gram Stain - Final 12/05/20 05:28 Blood - Blood Aerobic Blood Culture - Final No growth in 5 days. 12/05/20 05:28 Blood - Blood Gram Stain - Final Assessment & Plan - Problems (Diagnosis) (1) COVID-19 Current Visit: Yes Status: Acute Plan: Have discussed the patient with Dr. Morton. Will start him on the protochol. Have told the patient several times in [place]. He still does not understand. The patient is stable on 4 lts nc. 12/10 Patient is doing well. Will try to wean off oxygen (2) CKD (chronic kidney disease) Current Visit: No Status: Chronic Plan: Most likely he will need to be started on Dialysis this admission. He does not seem to understand this. The patient just repeats that he takes his medic ations. Unfortunately he has been stage 4 since April. 12/10 Waiting for outpatient dialysis to be arranged before we can discharge. Hopefully we can get him home by Sunday Qualifiers: Chronic kidney disease stage: stage 5, not on chronic dialysis Qualified Code(s): N18.5 - Chronic kidney disease, stage 5 (3) Diabetes mellitus Current Visit: No Status: Chronic Plan: will keep him on sliding scale insulin. Especially as the patient has to be on soulmedrol. Qualifiers: Diabetes mellitus type: type 2 Diabetes mellitus intermediate insulin use: with intermediate use Diabetes mellitus complication status: without complication Qualified Code(s): E11.9 - Type 2 diabetes mellitus without complications (4) Hypertension Current Visit: No Status: Chronic Plan: restart his home medications. Qualifiers: Hypertension type: primary hypertension Qualified Code(s): I10 - Essential (primary) hypertension (5) NSTEMI (non-ST elevated myocardial infarction) Current Visit: No Status: Acute Plan: May need a cath. However will manage him medically at this time. covid and ckd stage 5 elevates troponin. He does not report chest pain. Will put in a consult for Dr. Johnson. Will start asa and plavix as well. Discharge Plan: Home Plan to discharge in: Greater than 2 days - Code Status/Comfort Care Code Status Assessed: No Physician Review: Patient Assessed, Agree with Above Assessment and Plan Critical Care: No Time Spent Managing Pts Care (In Minutes): 20
[2020-12-10 10:38] VITALS: O2SAT 93
[2020-12-10] MEDS: REMDESIVIR (EUA) 100 MG in NA CHLORIDE 0.9% 250 ML IV SCH (12:12)
[2020-12-10] MEDS ORDERED: LORazepam 2 MG/ML VIAL IV PRN (17:25)
[2020-12-10] MEDS ORDERED: EPOETIN ALFA 10,000 UNIT/ML VIAL SQ ONE (20:00)
[2020-12-10 22:09] VITALS: BP 157/68; TEMP 97
--- NOTE | 2020-12-11 00:56 | PN ---
Date of Progress Note: 12/08/2020 Mr. Urias finally agreed with dialysis. His creatinine was 8. He is dealing with COVID infection. E chocardiogram is normal. I think since he is not on dialysis, I think he should be a candidate for a heart catheterization, but also closely treat him for his present illnesses and see how he tolerated dialysis over the next few days and hopefully go home. I will plan for him to see us in the office in the near future and then cardiac catheterization as an outpatient. ANGIE/SAGE Voice ID: [id number] Report ID: [id number]
--- NOTE | 2020-12-11 09:47 | P.DS ---
Admission Date: 12/05/20 Discharge Date: 12/10/20 Primary Care Provider: aleks Disposition: AMA-LEFT AGAINST MEDICAL ADVIC Reason for Admission: covid pneumonia, acute on chronic renal failure - Problems (1) COVID-19 Status: Acute (2) CKD (chronic kidney disease) Status: Chronic Qualifiers: Chronic kidney disease stage: stage 5, not on chronic dialysis Qualified Code(s): N18.5 - Chronic kidney disease, stage 5 (3) Diabetes mellitus Status: Chronic Qualifiers: Diabetes mellitus type: type 2 Diabetes mellitus technician terminal and repeater insulin use: with half-way use Diabetes mellitus complication status: without complication Qualified Code(s): E11.9 - Type 2 diabetes mellitus without complications (4) Hypertension Status: Chronic Qualifiers: Hypertension type: primary hypertension Qualified Code(s): I10 - Essential (primary) hypertension (5) NSTEMI (non-ST elevated myocardial infarction) Status: Acute Brief History of Present Illness: Patient established care with [facility] Sunday. Came in with abdominal pain. He has stage 4 ckd. Has progressed to stage 5. He is not able to give a history. Repeatedly asks for a Citizen [place] speaker. However our PLATE GRAINER in the office speaks fluent [place]. The patient did not understand her either. The patient tested positive for covid. Was seen by Dr. Zazueta and plans for dialysis. Initially she wanted him transferred for continuous dialysis after a cardiac cath(he has an elevated troponin) However the patient was not able to be transferred Hospital Course: Patient left on the evening of Sunday 12/10. The patient was demanding to go home from his admission. He has a history of non compliance. He did not have a dialysis chair arranged by the time he left. He should still be on covid isolation. However he was tolerating weaning off oxygen. He may do well from a covid perspective. However care of his cather an dialysis will be poor. Most likely the patient will be back in renal failure in a few weeks. Thank you for allowing us to take part in his care. Vital Signs/Physical Exam: Temp Pulse Resp BP Pulse Ox 97 F 60 16 157/68 H 96 12/10/20 22:09 12/10/20 22:09 12/10/20 22:09 12/10/20 22:09 12/10/20 22:09 General: Alert, In no apparent distress HEENT: Atraumatic, PERRLA, EOMI Neck: Supple, JVD not distended Respiratory: Clear to auscultation bilaterally, Normal air movement Cardiovascular: Regular rate/rhythm, Normal S1 S2 Gastrointestinal: Normal bowel sounds, No tenderness Musculoskeletal: No tenderness Integumentary: No rashes Neurological: Normal speech, Normal tone, Normal affect Lymphatics: No axilla or inguinal lymphadenopathy Laboratory Data at Discharge: WBC 22.30 K/uL (4.3-10.9) H* D 12/08/20 05:55 Hgb 8.0 g/dL (13.6-17.9) L 12/08/20 05:55 Hct 23.7 % (39.6-49.0) L 12/08/20 05:55 Plt Count 330 K/uL (152-406) 12/08/20 05:55 PT 13.1 SECONDS (9.5-12.5) H 12/05/20 03:00 INR 1.14 12/05/20 03:00 APTT 31.9 SECONDS (24.3-36.9) 12/05/20 03:00 Sodium 138 mmol/L (136-145) 12/10/20 03:12 Potassium 4.0 mmol/L (3.5-5.1) 12/10/20 03:12 BUN 68 mg/dL (7-18) H D 12/10/20 03:12 Creatinine 5.53 mg/dL (0.55-1.3) H* D 12/10/20 03:12 Glucose 198 mg/dL (74-106) H 12/10/20 03:12 Phosphorus 5.8 mg/dL (2.5-4.9) H 12/10/20 03:12 Magnesium 3.3 mg/dL (1.8-2.4) H D 12/08/20 05:55 Total Bilirubin 0.8 mg/dL (0.2-1.0) 12/10/20 03:12 AST 41 U/L (15-37) H 12/10/20 03:12 ALT 31 U/L (12-78) 12/10/20 03:12 Alkaline Phosphatase 85 U/L (45-117) 12/10/20 03:12 Lipase 264 U/L (73-393) 12/05/20 03:00 Home Medications: Amlodipine [Norvasc*] 10 mg PO DAILY #30 tab 11/20/20 Atorvastatin Calcium [Lipitor] 40 mg PO BEDTIME #30 tab 11/20/20 Calcitrol [Rocaltrol*] 0.25 mcg PO DAILY #30 cap 11/20/20 Cholecalciferol (Vitamin D3) [Vitamin D 5,000 IU Cap*] 5,000 unit PO DAILY #30 cap 11/20/20 Clopidogrel Bisulfate [Plavix*] 75 mg PO DAILY #30 tablet 11/20/20 Doxazosin [Cardura*] 2 mg PO BID #60 tab 11/20/20 Famotidine [Pepcid*] 20 mg PO Q48H #15 tab 11/20/20 Ferrous Sulfate [Ferrous Sulfate*] 325 mg PO BID #60 tab 11/20/20 Furosemide [Lasix*] 20 mg PO BIDL #60 tab 11/20/20 Hydralazine HCl [Apresoline] 100 mg PO TID #180 tablet 11/20/20 Sodium Bicarbonate 650 mg PO BID #60 tablet 11/20/20 Activity: Ad yuriy Followup: Unknown,U [Primary Care Provider] -
[2020-12-13 04:27] LABS: HBsAG Nonreactive (Nonreactive)
== END 2020-12-10 17:30 | disposition left against medical advice (07) | DRG 177 ==
LOC: ER 00:54 → ERHOLD 05:40 → 4TH 12-06 23:33
PROVIDERS: ADMIT Internal Medicine; ATTEND Internal Medicine
PROC: 02HV33Z Insertion of Infusion Device into Superior Vena Cava, Percutaneous Approach (ICD-10-PCS; 2020-12-08)
PROC: 5A1D70Z Performance of Urinary Filtration, Intermittent, Less than 6 Hours Per Day (ICD-10-PCS; principal; 2020-12-08 14:15)
PROC: 5A1D70Z Performance of Urinary Filtration, Intermittent, Less than 6 Hours Per Day (ICD-10-PCS; 2020-12-09)
PROC: 5A1D70Z Performance of Urinary Filtration, Intermittent, Less than 6 Hours Per Day (ICD-10-PCS; 2020-12-10)
DX: U07.1 COVID-19 (principal); J12.82 Pneumonia due to coronavirus disease 2019; N18.6 End stage renal disease; I21.4 Non-ST elevation (NSTEMI) myocardial infarction; I12.0 Hypertensive chronic kidney disease with stage 5 chronic kidney disease or end stage renal disease; N17.9 Acute kidney failure, unspecified; N25.81 Secondary hyperparathyroidism of renal origin; E87.1 Hypo-osmolality and hyponatremia; R09.02 Hypoxemia; E11.22 Type 2 diabetes mellitus with diabetic chronic kidney disease; D63.1 Anemia in chronic kidney disease; Z53.29 Procedure and treatment not carried out because of patient's decision for other reasons; Z86.73 Personal history of transient ischemic attack (TIA), and cerebral infarction without residual deficits
CPT/HCPCS: 36415; 71045; 74176; 76000; 80048; 80053; 80069; 80076; 82947; 83605; 83690; 83735; 83880; 84100; 84145; 84484; 85025; 85610; 85730; 86140; 86317; 86705; 87040; 87205; 87340; 90935; 93005; 93306; 96372; 96374; 96375; 99284; C1752; J0690; J1644; J1650; J1940; J2250; J2270; J2405; J2704; J2920; J7030; J7050; Q5105; U0003

== ENCOUNTER 2020-12-13 12:55 | Emergency (ER) | payer OTHER ==
--- NOTE | 2020-12-13 14:48 | ER ---
Nurse's Notes [facility] Name: Roscoe Urias Age: 75 yrs Sex: Male : 1945 Arrival Date: 12/13/2020 Time: 12:56 Bed Waiting Private MD: Diagnosis: Restlessness and agitation;Encounter for evaluation of dialysis catheter Presentation: 12/13 14:30 Chief complaint: Patient states: Pt stated, " I want this taken out. " Pt has a kg tunneled dialysis cathether place last week. Pt and poor historians. Coronavirus screen: Client denies travel out of the [place] in the last 14 days. At this time, unable to obtain information related to travel outside the [place] At this time, the client does not indicate any symptoms associated with coronavirus-19. Ebola Screen: Patient negative for fever greater than or equal to 101.5 degrees Fahrenheit, and additional compatible Ebola Virus Disease symptoms Patient denies exposure to infectious person. Patient denies travel to an Ebola-affected area in the 21 days before illness onset. 14:30 Method Of Arrival: Ambulatory kg 15:41 Initial Sepsis Screen: Does the patient meet any 2 criteria? No. Patient's initial ss sepsis screen is negative. Does the patient have a suspected source of infection? No. Patient's initial sepsis screen is negative. Risk Assessment: Do you want to hurt yourself or someone else? Patient reports no desire to harm self or others. Onset of symptoms is unknown. 15:41 Acuity: RUBEN 5 ss - Family history:: not pertinent. - Hospitalizations: : No recent hospitalization is reported. Vital Signs: 14:30 BP 144 / 48; Pulse 70; Resp 20; Temp 97.0(O); Pulse Ox 100% on R/A; Weight 69.4 kg; kg Height 5 ft. 8 in. (172.72 cm) (R); Pain 0/10; 14:30 Body Mass Index 23.26 (69.40 kg, 172.72 cm) kg ED Course: 12:56 Patient arrived in ED. ds1 14:14 Dinesh Goddard MD is Attending Physician. rn 14:30 Arm band placed on right wrist. kg 15:41 Triage completed. ss 16:05 No provider procedures requiring assistance completed. Patient did not have IV access ss during this emergency room visit. Administered Medications: No medications were administered Outcome: 14:47 Discharge ordered by . rn 16:05 Discharged to home via wheelchair, with family. ss 16:05 Condition: stable 16:05 Discharge instructions given to patient, family, Instructed on discharge instructions, follow up and referral plans. Demonstrated understanding of instructions, follow-up care. 16:06 Patient left the ED. ss Signatures: WaggonerIlda ds1 Dinesh Goddard MD MD rn Smirch, Shelby, RN RN Tiara Lim RN RN kg Corrections: (The following items were deleted from the chart) 15:41 15:41 Acuity: Unassigned ss ss
--- NOTE | 2020-12-13 14:48 | EDPHYS ---
Physician Documentation [facility] Name: Roscoe Urias Age: 75 yrs Sex: Male : 1945 Arrival Date: 12/13/2020 Time: 12:56 Bed Waiting Private MD: ED Physician Dinesh Goddard HPI: 12/13 14:19 This 75 yrs old Male presents to ER via Unassigned with complaints of Suture rn Recheck. 14:19 This 75 yrs old Male presents to ER via Unassigned with complaints of Wants rn catheter removed. 14:20 Patient reports dialysis catheter placed this past week, does not know why he had it rn placed. Because patient remembers is frustrated and wants catheter removed. Patient denies any pain/fever/shortness of breath. Patient upset and states was not explained what was happening or why he was getting catheter and now wants it removed.. Onset: The symptoms/episode began/occurred at an unknown time. Severity of symptoms: At their worst the symptoms were mild in the emergency department the symptoms are unchanged. It is unknown whether or not the patient has had similar symptoms in the past. The patient has not recently seen a physician. 14:41 Patient cannot tell me future plans for catheter. rn - Family history:: not pertinent. - Hospitalizations: : No recent hospitalization is reported. ROS: 14:41 Constitutional: Negative for fever, chills, and weight loss, Eyes: Negative for injury, rn pain, redness, and discharge, Neck: Negative for injury, pain, and swelling, Cardiovascular: Negative for chest pain, palpitations, and edema, Respiratory: Negative for shortness of breath, cough, wheezing, and pleuritic chest pain, Abdomen/GI: Negative for abdominal pain, nausea, vomiting, diarrhea, and constipation, Back: Negative for injury and pain, : Negative for injury, bleeding, discharge, and swelling, MS/Extremity: Negative for injury and deformity, Skin: Negative for injury, rash, and discoloration, Neuro: Negative for headache, weakness, numbness, tingling, and seizure. 14:41 All other systems are negative. Exam: 14:41 Constitutional: This is a well developed, well nourished patient who is awake, alert, rn and in no acute distress. Head/Face: Normocephalic, atraumatic. Neck: Trachea midline, no masses palpated Chest/axilla: Right anterior tunneled catheter in place, no blood, no erythema or swelling. Cardiovascular: Regular rate and rhythm. No pulse deficits. Respiratory: No increased work of breathing, no retractions or nasal flaring. Skin: Warm, dry MS/ Extremity: Pulses equal, no cyanosis. Neuro: Awake and alert, GCS 15 Vital Signs: 14:30 BP 144 / 48; Pulse 70; Resp 20; Temp 97.0(O); Pulse Ox 100% on R/A; Weight 69.4 kg; kg Height 5 ft. 8 in. (172.72 cm) (R); Pain 0/10; 14:30 Body Mass Index 23.26 (69.40 kg, 172.72 cm) kg MDM: 14:14 Patient medically screened. rn 14:42 Differential Diagnosis Frustration, fear to medical complaint. Data reviewed: vital rn signs, nurses notes, old medical records, and as a result, I will discharge patient. Counseling: I had a detailed discussion with the patient and/or guardian regarding: the historical points, exam findings, and any diagnostic results supporting the discharge/admit diagnosis, the need for outpatient follow up, to return to the emergency department if symptoms worsen or persist or if there are any questions or concerns that arise at home. 14:44 ED course: After review of medical records, patient seems to have been admitted for rn Covid pneumonia and acute renal failure, right IJ catheter placed by Dr. Cartwright. Given no complication, will not remove IJ catheter emergently in ER. Patient can follow-up with PCP and general surgery.. 14:45 ED course: Plan from nephrology aspect was dialysis organization. Patient also seems to rn have left AGAINST MEDICAL ADVICE. Will leave catheter in as to not disturb future plans of dialysis.. Administered Medications: No medications were administered Disposition Summary: 12/13/20 14:47 Discharge Ordered Location: Home rn Problem: new rn Symptoms: are unchanged rn Condition: Stable rn Diagnosis - Restlessness and agitation rn - Encounter for evaluation of dialysis catheter rn Followup: rn - With: Private Physician - When: As needed - Reason: Recheck today's complaints, Re-evaluation by your physician Discharge Instructions: - Discharge Summary Sheet rn - healthcare administration intern - [facility] Dialysis Access Placement, Care After rn - international student advisor Forms: - Medication Reconciliation Form rn - Thank You Letter rn - Antibiotic ornament setter - Prescription Opioid Use rn Signatures: Dinesh Goddard MD MD rn
[2020-12-13 16:13] VITALS: BP 144/48; TEMP 97; O2SAT 100
--- OUTSIDE RECORDS SUMMARY | 2020-12-13 22:44 | XMS REPORT | Continuity of Care Document ---
:1945 Author Organization [facility] t Address [address] [place] [address] Care Team Providers Name Role Phone Unavailable [...] Clinicians Facility Department ID 2020-11-22 2020-11-22 Outpatient [facility] [id number] [facility] 2020-09-02 2020-09-02 Outpatient [facility] [id number] [facility] 2020-08-09 2020-08-09 Outpatient [facility] [id number] [facility] 2020-08-03 2020-08-03 Outpatient [facility] [id number] [facility] Results This patient has no known results.
== END 2020-12-13 16:06 | disposition home or self-care (01) ==
LOC: ER 12:55
DX: Z49.01 Encounter for fitting and adjustment of extracorporeal dialysis catheter (principal)
CPT/HCPCS: 99281

== ENCOUNTER 2020-12-20 11:45 | Emergency (ER) | payer OTHER ==
--- OUTSIDE RECORDS SUMMARY | 2020-12-20 11:48 | XMS REPORT | Continuity of Care Document ---
:1945 Author Organization [facility] t Address [address] [place] [address] Care Team Providers Name Role Phone Unavailable [...] Clinicians Facility Department ID 2020-11-22 2020-11-22 Outpatient [facility] [id number] [facility] 2020-09-02 2020-09-02 Outpatient [facility] [id number] [facility] 2020-08-09 2020-08-09 Outpatient [facility] [id number] [facility] 2020-08-03 2020-08-03 Outpatient [facility] [id number] [facility] Results This patient has no known results.
[2020-12-20 14:23] LABS: Protime INR 1.1
[2020-12-20 14:58] LABS: Absolute Lymphocytes (CBC) 1.6 K/uL (0.7-4.9); Basophils % 0.8 % (0-1.3); Hematocrit 22.9 % (39.6-49.0); Lymphocytes % 16.7 % (15.3-44.8); MPV 10.3 fL (7.6-11.3); RBC Red Blood Cell Count 2.61 M/uL (4.33-5.43)
--- NOTE | 2020-12-20 15:20 | RAD REPORT ---
EXAM DESCRIPTION: Monet Single View12/20/2020 3:12 pm CLINICAL HISTORY: Cough COMPARISON: December 08, 2020 FINDINGS: Small to moderate bilateral pleural effusions. Mild bilateral interstitial lung opacities. Heart is mildly enlarged. Central venous catheter with its tip in the superior vena cava IMPRESSION: Small to moderate bilateral pleural effusions Mild bilateral interstitial lung opacities probably interstitial pulmonary edema
[2020-12-20 15:22] LABS: Bilirubin Direct 0.4 mg/dL (0-0.2); Bilirubin Total 1.4 mg/dL (0.2-1.0); Potassium 4.3 mmol/L (3.5-5.1)
[2020-12-20 15:23] LABS: Albumin 3.1 g/dL (3.4-5.0); Magnesium 3.2 mg/dL (1.8-2.4); Protein, Total 6.8 g/dL (6.4-8.2); Troponin (Emerg Dept Use Only) 0.1 ng/mL (0.0-0.045)
--- NOTE | 2020-12-20 16:35 | EDPHYS ---
Physician Documentation [facility] Name: Roscoe Urias Age: 75 yrs Sex: Male : 1945 Arrival Date: 12/20/2020 Time: 11:49 Bed DX2 Private MD: PRITI Physician Vipul Reddy HPI: 12/20 16:12 This 75 yrs old Male presents to ER via Wheelchair with complaints of Feet xavier Swelling, needs dialysis. 16:12 This 75 yrs old Male presents to ER via Wheelchair with complaints of Feet xavier Swelling, needs dialysis. 16:12 The patient presents with decreased range of motion, pain, that is acute. The xavier complaints affect the right leg and left leg. Context: The problem was sustained at home. Onset: The symptoms/episode began/occurred 3 week(s) ago. Modifying factors: The symptoms are alleviated by elevating leg, remaining still. The patient has shortness of breath at rest, with light activity. Duration: The symptoms are continuous, and are steadily getting worse. The patient's shortness of breath is aggravated by exertion, light activity, supine position. Historical: - Allergies: 16:22 No Known Allergies; iw - Home Meds: 16:20 glimepiride 4 mg Oral tab 1 tab once daily [Active]; Lasix 40 mg Oral tab 1 tab once iw daily [Active]; Lipitor 20 mg Oral tab 1 tab once daily [Active]; metformin 500 mg Oral tab 1 tab 2 times per day [Active]; Norvasc 5 mg Oral tab 1 tab once daily [Active]; - PMHx: 16:20 Diabetes; Hyperlipidemia; Hypertension; iw - Family history:: not pertinent. ROS: 16:12 Constitutional: Negative for fever, chills, and weight loss, Eyes: Negative for injury, xavier pain, redness, and discharge, ENT: Negative for injury, pain, and discharge, Neck: Negative for injury, pain, and swelling, Cardiovascular: Negative for chest pain, palpitations, and edema, Abdomen/GI: Negative for abdominal pain, nausea, vomiting, diarrhea, and constipation, Back: Negative for injury and pain, : Negative for injury, bleeding, discharge, and swelling, Skin: Negative for injury, rash, and discoloration, Neuro: Negative for headache, weakness, numbness, tingling, and seizure, Psych: Negative for depression, anxiety, suicide ideation, homicidal ideation, and hallucinations, Allergy/Immunology: Negative for hives, rash, and allergies, Endocrine: Negative for neck swelling, polydipsia, polyuria, polyphagia, and marked weight changes, Hematologic/Lymphatic: Negative for swollen nodes, abnormal bleeding, and unusual bruising. 16:12 Respiratory: Positive for cough, shortness of breath, at rest. 16:12 MS/extremity: Positive for swelling, tenderness, of the right leg and left leg. Exam: 16:12 Constitutional: This is a well developed, well nourished patient who is awake, alert, xavier and in no acute distress. Head/Face: Normocephalic, atraumatic. Eyes: Pupils equal round and reactive to light, extra-ocular motions intact. Lids and lashes normal. Conjunctiva and sclera are non-icteric and not injected. Cornea within normal limits. Periorbital areas with no swelling, redness, or edema. ENT: Nares patent. No nasal discharge, no septal abnormalities noted. Tympanic membranes are normal and external auditory canals are clear. Oropharynx with no redness, swelling, or masses, exudates, or evidence of obstruction, uvula midline. Mucous membranes moist. Neck: Trachea midline, no thyromegaly or masses palpated, and no cervical lymphadenopathy. Supple, full range of motion without nuchal rigidity, or vertebral point tenderness. No Meningismus. Chest/axilla: Normal chest wall appearance and motion. Nontender with no deformity. No lesions are appreciated. Cardiovascular: Regular rate and rhythm with a normal S1 and S2. No gallops, murmurs, or rubs. Normal PMI, no JVD. No pulse deficits. Abdomen/GI: Soft, non-tender, with normal bowel sounds. No distension or tympany. No guarding or rebound. No evidence of tenderness throughout. Back: No spinal tenderness. No costovertebral tenderness. Full range of motion. Male : Normal genitalia with no discharge or lesions. Skin: Warm, dry with normal turgor. Normal color with no rashes, no lesions, and no evidence of cellulitis. Neuro: Awake and alert, GCS 15, oriented to person, place, time, and situation. Cranial nerves II-XII grossly intact. Motor strength 5/5 in all extremities. Sensory grossly intact. Cerebellar exam normal. Normal gait. Psych: Awake, alert, with orientation to person, place and time. Behavior, mood, and affect are within normal limits. 16:12 ECG was reviewed by the Attending Physician. 16:12 Respiratory: mild respiratory distress is noted, Respirations: labored breathing, that is mild, Breath sounds: rhonchi, that are mild, Respiratory rate: 82 Vital Signs: 12:12 BP 148 / 88; Pulse 82; Resp 24; Temp 97.8; Pulse Ox 100% on R/A; hb MDM: 13:43 Patient medically screened. [facility] 12/20 13:44 Order name: Basic Metabolic Panel; Complete Time: 15:40 [facility] 12/20 13:44 Order name: CBC with Diff; Complete Time: 15:06 [facility] 12/20 13:44 Order name: LFT's; Complete Time: 15:40 [facility] 12/20 13:44 Order name: Magnesium; Complete Time: 15:40 [facility] 12/20 13:44 Order name: NT PRO-BNP; Complete Time: 15:40 [facility] 12/20 13:44 Order name: PT-INR; Complete Time: 15:06 [facility] 12/20 13:44 Order name: Troponin (emerg Dept Use Only); Complete Time: 15:40 [facility] 12/20 13:44 Order name: XRAY Chest (1 view); Complete Time: 15:40 [facility] 12/20 13:44 Order name: EKG; Complete Time: 13:46 [facility] 12/20 13:44 Order name: Cardiac monitoring [facility] 12/20 13:44 Order name: EKG - Nurse/Tech; Complete Time: 15:57 [facility] 12/20 15:06 Order name: Type And Screen [facility] 12/20 15:14 Order name: COVID-19 : Document "Date of Symptom Onset" if Symptomatic. [facility] 12/20 13:44 Order name: IV Saline Lock; Complete Time: 14:09 [facility] 12/20 13:44 Order name: Labs collected and sent; Complete Time: 14:09 [facility] 12/20 13:44 Order name: O2 Per Protocol [facility] 12/20 13:44 Order name: O2 Sat Monitoring [facility] EC:12 Rate is 72 beats/min. Rhythm is regular. QRS [place] is Normal. MI interval is normal. QRS xavier interval is normal. QT interval is normal. No Q waves. T waves are Normal. No ST changes noted. Clinical impression: NSR w/ Non-specific ST/T Changes and No evidence of ischemia. Interpreted by me. Reviewed by me. Administered Medications: No medications were administered Disposition Summary: 12/20/20 16:34 Left Against Medical Advice Location: Home xavier Problem: new xavier Symptoms: have worsened xavier Condition: Critical xavier Diagnosis - Unspecified kidney failure - chronic xavier - End stage renal disease xavier - Anemia, unspecified xavier - Pleural effusion, not elsewhere classified xavier - Dyspnea xavier - Unspecified combined systolic (congestive) and diastolic (congestive) heart failure xavier Followup: xavier - With: Private Physician - When: Upon discharge from the Emergency Department - Reason: Recheck today's complaints, Continuance of care, Re-evaluation by your physician Followup: xavier - With: Jim Gunderson MD - When: Upon discharge from the Emergency Department - Reason: Recheck today's complaints, Continuance of care, Re-evaluation by your physician Discharge Instructions: - Discharge Summary Sheet xavier - Anemia xavier - Heart Failure, Diagnosis xavier - Type 2 Diabetes Mellitus, Diagnosis, Adult xavier - Pleural Effusion xavier - Dialysis xavier - End-Stage Kidney Disease xavier - Heart Failure, Diagnosis, [id number] xavier - Eating Plan for Dialysis, Subx-oh-[id number] xavier Signatures: Dispatcher [employer] EDVipul Ruiz MD MD cha Williams, Irene RN RN iw
--- NOTE | 2020-12-20 16:35 | ER ---
Nurse's Notes [facility] Name: Roscoe Urias Age: 75 yrs Sex: Male : 1945 Arrival Date: 12/20/2020 Time: 11:49 Bed DX2 Private MD: Diagnosis: Unspecified kidney failure-chronic;End stage renal disease;Anemia, unspecified;Pleural effusion, not elsewhere classified;Dyspnea;Unspecified combined systolic (congestive) and diastolic (congestive) heart failure Presentation: 12/20 12:11 Chief complaint:. hb 12:12 Chief complaint: Pt in wheelchair, appears altered, is not answering any questions from hb this nurse or when using [employer] ticket sorter, keeps repeating "I want this out." while pulling on right upper chest HD catheter. Moderate swelling noted to bilateral ankles/feet, appears jaundiced. HD catheter dressing is hanging, dried blood noted at site. Coronavirus screen: At this time, the client does not indicate any symptoms associated with coronavirus-19. Ebola Screen: No symptoms or risks identified at this time. Risk Assessment: Do you want to hurt yourself or someone else? Patient reports no desire to harm self or others. Onset of symptoms is unknown. 12:12 Method Of Arrival: Wheelchair hb 12:12 Acuity: RUBEN 3 hb Historical: - Allergies: 16:22 No Known Allergies; iw - Home Meds: 16:20 glimepiride 4 mg Oral tab 1 tab once daily [Active]; Lasix 40 mg Oral tab 1 tab once iw daily [Active]; Lipitor 20 mg Oral tab 1 tab once daily [Active]; metformin 500 mg Oral tab 1 tab 2 times per day [Active]; Norvasc 5 mg Oral tab 1 tab once daily [Active]; - PMHx: 16:20 Diabetes; Hyperlipidemia; Hypertension; iw - Family history:: not pertinent. Screenin:22 Abuse screen: Denies threats or abuse. Denies injuries from another. Nutritional iw screening: No deficits noted. Tuberculosis screening: No symptoms or risk factors identified. Fall Risk IV access (20 points). Assessment: 16:17 Reassessment: pt refuses to be moved to ER bed 4, states he wants to gome, states he iw wants his dialysis catheter removed from his chest, educated pt on need for dialysis, pt states he does not want to live that way and would rather , called pt family member to. 16:30 Reassessment: family member at bedside , speaking to Dr. Reddy, pt still refuses to iw be admitted to hospital , pt states he would rather , pt understands that if he leaves he is at risk for , family member verbalizes understanding also. Vital Signs: 12:12 BP 148 / 88; Pulse 82; Resp 24; Temp 97.8; Pulse Ox 100% on R/A; hb ED Course: 11:49 Patient arrived in ED. as 12:16 Triage completed. hb 13:43 Vipul Reddy MD is Attending Physician. xavier 14:09 Initial lab(s) drawn, by me, sent to lab. Inserted saline lock: 22 gauge in left em1 forearm, using aseptic technique. Blood collected. 15:13 XRAY Chest (1 view) In Process Unspecified. EDMS 15:21 Brigida Hernandez, RN is Primary Nurse. iw 15:57 EKG done, by ED staff, reviewed by Vipul Reddy MD. em1 16:32 Jim Gunderson MD is Referral Physician. [facility] 16:33 Arm band placed on. iw Administered Medications: No medications were administered Outcome: 16:53 AMA iw 16:53 Condition: unchanged 16:53 Instructed on the need for admit. 16:54 Patient left the ED. iw Signatures: Dispatcher [employer] EDMS Vipul Reddy MD MD cha Martinez, Amelia as Brigida Hernandez, RAJESH RN iw [place], [place] [id number] Deana Alfaro RN RN hb Corrections: (The following items were deleted from the chart) 12:42 12:12 Acuity: RUBEN 2 hb hb
[2020-12-20 17:07] VITALS: BP 148/88; TEMP 97.8; O2SAT 100
--- NOTE | 2020-12-21 16:14 | EKG ---
Test Date: 2020-12-20 Test Time: 15:53:21 Air Gun Operator: MARIA EUGENIA MEASUREMENT RESULTS: Intervals: Rate: 72 WV: 156 QRSD: 92 QT: 440 QTc: 481 [place]: P: 100 WV: 156 QRS: 68 T: 77 INTERPRETIVE STATEMENTS: Sinus rhythm with premature atrial complexes Anterior infarct, age undetermined Abnormal ECG Compared to ECG 12/05/2020 04:39:58 ST (T wave) deviation no longer present Possible ischemia no longer present Prolonged QT interval no longer present Myocardial infarct finding still present Electronically Signed On 12-21-20 16:11:50 CDT by Dusty Glover
== END 2020-12-20 16:54 | disposition left against medical advice (07) ==
LOC: ER 11:45
DX: E11.22 Type 2 diabetes mellitus with diabetic chronic kidney disease (principal); I13.2 Hypertensive heart and chronic kidney disease with heart failure and with stage 5 chronic kidney disease, or end stage renal disease; I50.40 Unspecified combined systolic (congestive) and diastolic (congestive) heart failure; N18.6 End stage renal disease; D63.1 Anemia in chronic kidney disease; J90 Pleural effusion, not elsewhere classified; R06.00 Dyspnea, unspecified; Z99.2 Dependence on renal dialysis
CPT/HCPCS: 36415; 71045; 80048; 80076; 83735; 83880; 84484; 85025; 85610; 93005; 99284

== ENCOUNTER 2021-01-04 16:10 | Inpatient (IN) | payer OTHER ==
--- OUTSIDE RECORDS SUMMARY | 2021-01-04 16:14 | XMS REPORT | Continuity of Care Document ---
:1945 Author Organization [facility] t Address [address] [place] [address] Care Team Providers Name Role Phone Unavailable [...] Clinicians Facility Department ID 2020-11-22 2020-11-22 Outpatient [facility] [id number] [facility] 2020-09-12 2020-09-12 Outpatient [facility] [id number] [facility] 2020-09-02 2020-09-02 Outpatient [facility] [id number] [facility] 2020-08-09 2020-08-09 Outpatient [facility] [id number] [facility] 2020-08-03 2020-08-03 Outpatient [facility] [id number] [facility] Results This patient has no known results.
--- NOTE | 2021-01-04 17:10 | RAD REPORT ---
EXAM DESCRIPTION: RAD - Chest Single View - 01/04/2021 4:55 pm CLINICAL HISTORY: COUGH COMPARISON: Chest Single View dated 12/20/2020; Chest Single View dated 12/08/2020; Chest Single View dated 12/05/2020; Chest Single View dated 11/16/2020 FINDINGS: Lines: Right IJ approach dialysis catheter with tip overlying the right atrium. Lungs: Diffuse prominence of the pulmonary interstitium. Pleural: Bilateral pleural effusions . Cardiac: Cardiomegaly. Bones: No acute fractures. Other: IMPRESSION: Edema which is grossly similar to 12/20/2020.
[2021-01-04 17:23] LABS: Absolute Lymphocytes (CBC) 0.5 K/uL (0.7-4.9); Basophils % 0.2 % (0-1.3); Hematocrit 27.3 % (39.6-49.0); Lymphocytes % 4.8 % (15.3-44.8); MPV 10.6 fL (7.6-11.3); RBC Red Blood Cell Count 2.97 M/uL (4.33-5.43)
[2021-01-04 17:24] LABS: Protime INR 1.4
[2021-01-04 17:38] LABS: ALT/SGPT 38 U/L (12-78); AST/SGOT 52 U/L (15-37); Albumin 2.8 g/dL (3.4-5.0); Alkaline Phosphatase 119 U/L (45-117); BUN Blood Urea Nitrogen 193 mg/dL (7-18); Bicarbonate 18 mmol/L (21-32); Bilirubin Direct 1.1 mg/dL (0-0.2); Glucose Level 156 mg/dL (74-106); Potassium 4.4 mmol/L (3.5-5.1); Protein, Total 6.9 g/dL (6.4-8.2); Sodium Level 136 mmol/L (136-145)
[2021-01-04 17:39] LABS: Magnesium 3.8 mg/dL (1.8-2.4); Troponin (Emerg Dept Use Only) 1.02 ng/mL (0.0-0.045)
--- NOTE | 2021-01-04 17:59 | EDPHYS ---
Physician Documentation [facility] Name: Roscoe Urias Age: 75 yrs Sex: Male : 1945 Arrival Date: 01/04/2021 Time: 16:12 Bed 6 Private MD: ED Physician Vipul Reddy HPI: 01/04 17:48 This 75 yrs old Male presents to ER via Wheelchair with complaints of Wont Eat xavier Dialysis Patient, Feet Swelling. 17:48 The patient has shortness of breath at rest. Onset: The symptoms/episode began/occurred xavier 5 day(s) ago. Duration: The symptoms are continuous, and are steadily getting worse. The patient's shortness of breath is aggravated by nothing, is alleviated by nothing. esrd , no dialysis in months. Associated signs and symptoms: Pertinent positives: non-productive cough. Severity of symptoms: At their worst the symptoms were moderate in the emergency department the symptoms are unchanged. Onset: The symptoms/episode began/occurred 1 week(s) ago. The patient has experienced similar episodes in the past, several times. Historical: - Allergies: 16:25 No Known Allergies; iw - PMHx: 16:25 Diabetes; Hyperlipidemia; Hypertension; ESRD; iw - Immunization history:: Unkown. - Social history:: Smoking status: unknown. - Family history:: not pertinent. ROS: 17:48 Constitutional: Positive for body aches, fatigue, malaise, poor PO intake. xavier 17:48 ENT: Positive for rhinorrhea, sinus congestion. 17:48 Cardiovascular: Positive for palpitations. 17:48 Respiratory: Positive for dyspnea on exertion, shortness of breath. 17:48 Abdomen/GI: Positive for 17:48 Back: Negative for injury or acute deformity. 17:48 MS/extremity: Positive for decreased range of motion, pain, swelling, of the right leg and left leg. 17:55 Back: Negative for injury and pain. xavier Exam: 17:48 Constitutional: The patient appears lethargic, in obvious distress, mildly distressed. xavier 17:48 ENT: Nose: nasal drainage. 17:48 Chest/axilla: Inspection: normal, Palpation: no acute changes, Axilla: are normal, Lymph nodes: lymphadenopathy is not appreciated. 17:48 Cardiovascular: Rate: tachycardic, actual rate is 111 bpm, Rhythm: irregularly irregular, Pulses: Pulses are 4+ in bilateral radial, brachial, femoral, popliteal, posterior tibial and and dorsalis pedis arteries.. Heart sounds: murmur, systolic, grade 2 over 6, Edema: 2+ edema to level of left midcalf and right midcalf, JVD: is noted bilaterally, to 3 cm. 17:48 ECG was reviewed by the Attending Physician. 17:48 Respiratory: mild respiratory distress is noted, Breath sounds: rales, that are moderate, are located in both bases, Respiratory rate: 20 17:55 Head/Face: Normocephalic, atraumatic. xavier Vital Signs: 16:23 BP 117 / 80; Pulse 118; Resp 20 S; Temp 97.7; Pulse Ox 98% on R/A; iw 17:37 BP 111 / 78; Pulse 79; Resp 20; Pulse Ox 95% on 2 lpm NC; ch5 MDM: 16:28 Patient medically screened. xavier 17:54 Differential diagnosis: Bronchitis CHF exacerbation, Myocardial Infarction pneumonia, xavier pulmonary edema, Sepsis Unstable Angina. Antibiotic administration: Not indicated. Differential Diagnosis altered mental status. The patient's Wells Deep Vein Thrombosis Score was calculated as follows: Heart Rate >100 BPM (1.5 Pts) Imm/Surg in last 4 wks (1.5 Pts) Total Score: 3-6 Pts - Mod Risk. The patient's pulmonary embolism risk score was calculated as follows: the patients heart rate is greater than 100 beats per minute (1.5 Pts) patient has experienced immobilization or surgery in the last four weeks (1.5 Pts) Total Score: 3-6 points. This patient was found to be at moderate risk for a pulmonary embolism by using the Well's assessment criteria. Data reviewed: vital signs, nurses notes, lab test result(s), EKG, radiologic studies, plain films. 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 Test interpretation: by ED physician or midlevel provider: ECG, plain radiologic studies. Counseling: I had a detailed discussion with the patient and/or guardian regarding: the historical points, exam findings, and any diagnostic results supporting the discharge/admit diagnosis, lab results, radiology results, the need for further work-up and treatment in the hospital. 01/04 16:29 Order name: Basic Metabolic Panel [facility] 01/04 16:29 Order name: CBC with Diff [facility] 01/04 16:29 Order name: LFT's [facility] 01/04 16:29 Order name: Magnesium [facility] 01/04 16:29 Order name: NT PRO-BNP [facility] 01/04 16:29 Order name: PT-INR; Complete Time: 17:44 [facility] 01/04 16:29 Order name: Troponin (emerg Dept Use Only) [facility] 01/04 16:29 Order name: XRAY Chest (1 view); Complete Time: 17:16 [facility] 01/04 16:29 Order name: Basic Metabolic Panel [facility] 01/04 16:29 Order name: CBC with Automated Diff; Complete Time: 17:44 [facility] 01/04 16:57 Order name: Glucose, Ancillary Testing; Complete Time: 17:16 [facility] 01/04 17:47 Order name: TSH [facility] 01/04 18:17 Order name: SARS-COV-2 RT PCR [facility] 01/04 16:29 Order name: EKG; Complete Time: 16:30 [facility] 01/04 16:29 Order name: Cardiac monitoring; Complete Time: 16:47 [facility] 01/04 16:29 Order name: EKG - Nurse/Tech; Complete Time: 16:47 [facility] 01/04 16:29 Order name: IV Saline Lock; Complete Time: 16:47 [facility] 01/04 16:29 Order name: Labs collected and sent; Complete Time: 16:47 [facility] 01/04 16:29 Order name: O2 Per Protocol; Complete Time: 16:47 [facility] 01/04 16:29 Order name: O2 Sat Monitoring; Complete Time: 16:47 [facility] 01/04 19:03 Order name: CONS Physician Consult EDMS EC:48 Rate is 111 beats/min. Rhythm is irregularly irregular. QRS [place] is Normal. [place] interval xavier is normal. QRS interval is normal. QT interval is normal. No Q waves. T waves are Normal in leads II, aVF, V4, V5, V6. Clinical impression: Atrial Fibrillation. Interpreted by me. Reviewed by me. Administered Medications: 17:59 Drug: Lovenox (enoxaparin) 40 mg Route: Sub-Q; Site: right lower abdomen; ch5 17:59 Drug: Pepcid (famotidine) 20 mg Route: IVP; Site: right antecubital; ch5 19:52 Drug: Aspirin 81 mg Route: PO; ea Disposition Summary: 01/04/21 18:58 Hospitalization Ordered Hospitalization Status: Inpatient Admission(01/04/21 18:58) xavier Provider: Vicente Don(01/04/21 18:58) xavier Location: Telemetry/MedSurg (Inpatient)(01/04/21 18:58) xavier Condition: Serious(01/04/21 18:58) xavier Problem: new(01/04/21 18:58) xavier Symptoms: have improved(01/04/21 18:58) xavier Bed/Room Type: Standard(01/04/21 18:58) xavier Room Assignment: 201(01/04/21 19:34) Diagnosis - Unspecified combined systolic (congestive) and diastolic (congestive) heart xavier failure(01/04/21 18:58) - End stage renal disease - on HD xavier - Non ST elevation [place](01/04/21 18:58) xavier - Weakness(01/04/21 18:58) xavier - Persistent atrial fibrillation xavier - Dyspnea xavier Forms: - Medication Reconciliation Form xavier - SBAR form xavier Signatures: Dispatcher [employer] EDMS Aurelia Orona RN RN mw Anderson, Corey, MD MD cha Williams, Irene RN Rukhsana Balderas RN RN ea Heath, Christopher, RN RN ch5 Corrections: (The following items were deleted from the chart) 17:06 16:30 CORONAVIRUS+MR.LAB.BRZ ordered. EDMS EDMS 18:56 17:58 Inpatient Admission xavier xavier 18:56 17:58 Damian Goddard xavier xavier 18:56 17:58 Telemetry/MedSurg (Inpatient) xavier xavier 18:56 17:58 Serious xavier xavier 18:56 17:58 new xavier xavier 18:56 17:58 are unchanged xavier xavier 18:56 17:58 Standard xavier xavier 18:56 17:58 xavier xavier 18:56 17:58 Unspecified combined systolic (congestive) and diastolic (congestive) heart xavier failure xavier 18:56 17:58 Unspecified kidney failure - acute on chronic xavier xavier 18:56 17:58 Unspecified atrial fibrillation - RVR xavier xavier 18:56 17:58 Weakness xavier xavier 18:56 18:[address] elevation [place] xavier xavier 19:34 18:58 xavier mw
--- NOTE | 2021-01-04 17:59 | ER ---
Nurse's Notes [facility] Name: Roscoe Urias Age: 75 yrs Sex: Male : 1945 Arrival Date: 01/04/2021 Time: 16:12 Bed 6 Private MD: Diagnosis: Unspecified combined systolic (congestive) and diastolic (congestive) heart failure;End stage renal disease-on HD;Non ST elevation [place];Weakness;Persistent atrial fibrillation;Dyspnea Presentation: 01/04 16:23 Chief complaint: Patient's son or daughter states: pt is supposed to be getting dialysis but has refused since about a month ago, now he refuses to eat and he has a lot of swelling. Coronavirus screen: At this time, the client does not indicate any symptoms associated with coronavirus-19. Ebola Screen: Patient negative for fever greater than or equal to 101.5 degrees Fahrenheit, and additional compatible Ebola Virus Disease symptoms Patient denies exposure to infectious person. Patient denies travel to an Ebola-affected area in the 21 days before illness onset. No symptoms or risks identified at this time. Initial Sepsis Screen: Does the patient meet any 2 criteria? No. Patient's initial sepsis screen is negative. Does the patient have a suspected source of infection? No. Patient's initial sepsis screen is negative. Risk Assessment: Do you want to hurt yourself or someone else? Patient reports no desire to harm self or others. Onset of symptoms was November 2020. 16:23 Method Of Arrival: Wheelchair iw 16:23 Acuity: RUBEN 3 iw 16:37 Acuity: RUBEN 2 iw Historical: - Allergies: 16:25 No Known Allergies; iw - PMHx: 16:25 Diabetes; Hyperlipidemia; Hypertension; ESRD; iw - Immunization history:: Unkown. - Social history:: Smoking status: unknown. - Family history:: not pertinent. Screenin:20 Tuberculosis screening: No symptoms or risk factors identified. Fall Risk Secondary ch5 diagnosis (15 points) impaired mobility. 17:37 Abuse screen: Denies threats or abuse. Denies injuries from another. Nutritional ch5 screening: Had unintentional weight loss of 10 pounds or more. Assessment: 17:20 Reassessment:. General: Appears distressed, uncomfortable, emaciated, malnourished. ch5 17:33 Reassessment: pt cleaned, changed into hospital gown, warm blankets given. iw 19:52 Reassessment: Pt awake alert oriented x 2. Respirations even and unlabored chest ea expansions even and symmetrical. Dialysis nurse at bedside taking pt to dialysis. Vital Signs: 16:23 BP 117 / 80; Pulse 118; Resp 20 S; Temp 97.7; Pulse Ox 98% on R/A; iw 17:37 BP 111 / 78; Pulse 79; Resp 20; Pulse Ox 95% on 2 lpm NC; ch5 ED Course: 16:12 Patient arrived in ED. ds1 16:25 Triage completed. iw 16:28 Vipul Reddy MD is Attending Physician. xavier 16:37 Arm band placed on. iw 16:49 Juan Carlos Valera, RAJESH is Primary Nurse. ch5 16:50 Inserted saline lock: 20 gauge in right antecubital area, using aseptic technique. iw Blood collected. 16:50 Missed attempt(s): 20 gauge in left antecubital area. Bleeding controlled, band aid iw applied, catheter tip intact. 16:55 XRAY Chest (1 view) In Process Unspecified. EDMS 16:57 Glucose, Ancillary Testing Sent. ch5 17:26 pt grandson number......[phone], call if there is any problem. bd 17:38 Basic Metabolic Panel Sent. ch5 17:38 CBC with Diff Sent. ch5 17:56 Damian Goddard MD is Hospitalizing Provider. xavier 18:56 Vicente Don MD is Hospitalizing Provider. xavier 19:52 No provider procedures requiring assistance completed. Patient admitted, IV remains in ea place. Administered Medications: 17:59 Drug: Lovenox (enoxaparin) 40 mg Route: Sub-Q; Site: right lower abdomen; ch5 17:59 Drug: Pepcid (famotidine) 20 mg Route: IVP; Site: right antecubital; ch5 19:52 Drug: Aspirin 81 mg Route: PO; ea Outcome: 17:58 Decision to Hospitalize by Provider. xavier 18:58 Decision to Hospitalize by Provider. xavier 19:55 Admitted to Med/surg Other Pt taken to dialysis ea 19:55 Condition: stable 19:55 Instructed on the need for admit, Demonstrated understanding of instructions. 19:56 Patient left the ED. ea Signatures: Dispatcher [employer] EDMS Roselyn Lau Corey, MD MD cha Sanford, Demi ds1 Brigida Hernandez RN RN iw Antunez, Elena, RN RN ea Heath, Christopher, RN RN ch5 Corrections: (The following items were deleted from the chart) 17:27 17:20 BP 103 / 43; Pulse 71bpm; Resp 21bpm; Pulse Ox 95% Nebulizer Mask; Pain 0/10; ch5 ch5
[2021-01-04 18:01] LABS: NT PRO-BNP > 175000 pg/mL (<125)
[2021-01-04] MEDS ORDERED: ENOXAPARIN 40 MG/0.4 ML SQ ONE (18:19)
[2021-01-04] MEDS ORDERED: FAMOTIDINE 20 MG/2 ML VIAL IV ONE (18:20)
[2021-01-04] MEDS ORDERED: MANNITOL 25% 12.5 GM/50 ML VIAL IV PRN (19:13)
[2021-01-04] MEDS ORDERED: ASPIRIN 81 MG CHEWABLE TABLET ONE (20:01)
[2021-01-04] MEDS ORDERED: D50W 25 GM/50 ML SYRINGE IV PRN (20:10)
[2021-01-04] MEDS ORDERED: IPRATROPIUM BROM 0.5MG/2.5ML NEB PRN (20:10)
[2021-01-04] MEDS ORDERED: MORPHINE 4 MG/ML SYR IV PRN (20:10)
[2021-01-04] MEDS ORDERED: GLUCAGON 1 MG/VIAL IM PRN (20:10)
[2021-01-04] MEDS ORDERED: ALBUTEROL 2.5 MG/3 ML NEB SOL NEB PRN (20:10)
[2021-01-04] MEDS ORDERED: MANNITOL 25% 100 ML IV ONE (20:10)
[2021-01-04] MEDS ORDERED: ONDANSETRON 4 MG/2 ML VIAL IV PRN (20:10)
[2021-01-04] MEDS ORDERED: ACETAMINOPHEN 500 MG TAB PO PRN (20:10)
[2021-01-04] MEDS: INSULIN -REGULAR HUMAN 50 UNIT/0.5 ML ML SQ SCH (21:00)
[2021-01-05 02:49] VITALS: BMI 22.4
[2021-01-05 05:45] LABS: Absolute Lymphocytes (CBC) 0.4 K/uL (0.7-4.9); Basophils % 0.1 % (0-1.3); Hematocrit 24.3 % (39.6-49.0); Lymphocytes % 3.8 % (15.3-44.8); RBC Red Blood Cell Count 2.65 M/uL (4.33-5.43)
[2021-01-05 06:35] LABS: BUN Blood Urea Nitrogen 117 mg/dL (7-18); Bicarbonate 20 mmol/L (21-32); Glucose Level 128 mg/dL (74-106); Potassium 4.3 mmol/L (3.5-5.1); Sodium Level 138 mmol/L (136-145)
[2021-01-05 06:38] LABS: NT PRO-BNP > 175000 pg/mL (<125)
[2021-01-05] MEDS: INSULIN -REGULAR HUMAN 50 UNIT/0.5 ML ML SQ SCH ×4 (07:30→20:49)
[2021-01-05 07:59] LABS: Blood Morphology Comment NOTED (NOT SEEN); Platelet Estimate ADEQ; White Blood Cell Scan OK (OK)
[2021-01-05] MEDS ORDERED: PNEUMOCOCCAL VACCINE 0.5 ML IMVAC ONE (08:00)
--- NOTE | 2021-01-05 08:16 | EKG ---
Test Date: 2021-01-04 Test Time: 16:38:10 Cabbage Salter: NAE MEASUREMENT RESULTS: Intervals: Rate: 111 IA: QRSD: 100 QT: 354 QTc: 481 [place]: P: IA: QRS: 49 T: 150 INTERPRETIVE STATEMENTS: Accelerated Junctional rhythm ST & T wave abnormality, consider inferolateral ischemia Abnormal ECG Compared to ECG 12/20/2020 15:53:21 Accelerated junctional rhythm now present ST (T wave) deviation now present Possible ischemia now present Sinus rhythm no longer present Atrial premature complex(es) no longer present Myocardial infarct finding no longer present Electronically Signed On 01-05-21 08:14:14 CDT by Dusty Glover
[2021-01-05] MEDS ORDERED: FUROSEMIDE 20 MG/ 2ML VIAL IV SCH (09:00)
[2021-01-05] MEDS: ASPIRIN 81 MG CHEWABLE TABLET PO SCH (09:17)
[2021-01-05] MEDS ORDERED: EPOETIN ALFA 10,000 UNIT/ML VIAL IV PRN (09:45)
--- NOTE | 2021-01-05 10:27 | P.HP ---
Certification for Inpatient Patient admitted to: Inpatient With expected LOS: >2 Midnights Practitioner: I am a practitioner with admitting privileges, knowledge of patient current condition, hospital course, and medical plan of care. Services: Services provided to patient in accordance with Admission requirements found in Title 42 Section 412.3 of the Code of Federal Regulations Patient History Date of Service: 01/05/21 Primary Care Provider: Florencia Reason for admission: esrd History of Present Illness: Patient is here after non compliance with dialysis. He was admitted and start on dialysis on the last admission. The patient is not compliant has not been to dialysis for approx 3 weeks. He came back to the hospital complainting of GERD symptoms. Have spoken to the grandson. He lives with and grandsons family. The patient has been vomiting frequently. Getting weaker. Have met with him with Dr. Quintana. As he states he does not understand us we had the nurse Aranza speak [place] to him. As per the last admission he did not speak with our [place] speaking staff in the office. He states he was worried about the expense. Per the grandson he would not go despite the grandsons best efforts. Allergies No Known Allergies Allergy (Verified 08/09/20 11:02) Home Medications: Amlodipine [Norvasc*] 10 mg PO DAILY #30 tab 11/20/20 Atorvastatin Calcium [Lipitor] 40 mg PO BEDTIME #30 tab 11/20/20 Calcitrol [Rocaltrol*] 0.25 mcg PO DAILY #30 cap 11/20/20 Cholecalciferol (Vitamin D3) [Vitamin D 5,000 IU Cap*] 5,000 unit PO DAILY #30 cap 11/20/20 Clopidogrel Bisulfate [Plavix*] 75 mg PO DAILY #30 tablet 11/20/20 Doxazosin [Cardura*] 2 mg PO BID #60 tab 11/20/20 Famotidine [Pepcid*] 20 mg PO Q48H #15 tab 11/20/20 Ferrous Sulfate [Ferrous Sulfate*] 325 mg PO BID #60 tab 11/20/20 Furosemide [Lasix*] 20 mg PO BIDL #60 tab 11/20/20 Hydralazine HCl [Apresoline] 100 mg PO TID #180 tablet 11/20/20 Sodium Bicarbonate 650 mg PO BID #60 tablet 11/20/20 - Past Medical/Surgical History Has patient received pneumonia vaccine in the past: No Diabetic: Yes -: hypertension -: hyperlipidemia -: NIDDM -: CVA -: NSTEMI 04/2020 -: Appendectomy Psychosocial/ Personal History: Patient lives with family - Social History Smoking Status: Never smoker Alcohol use: No CD- Drugs: No Caffeine use: No Review of Systems General: Weakness, Malaise Gastrointestinal: Nausea, Vomiting Physical Examination - Vital Signs Temperature: 97.1 F Blood Pressure: 129/63 Pulse: 73 Respirations: 18 Pulse Ox (%): 96 - Physical Exam General: Alert, In no apparent distress HEENT: Atraumatic, PERRLA, Mucous membr. moist/pink, EOMI, Sclerae nonicteric Neck: Supple, 2+ carotid pulse no bruit, No LAD, Without JVD or thyroid abnormality Respiratory: Clear to auscultation bilaterally, Normal air movement Cardiovascular: Regular rate/rhythm, Normal S1 S2 Gastrointestinal: Normal bowel sounds, No tenderness Musculoskeletal: No tenderness Integumentary: No rashes Neurological: Normal gait, Normal speech, Normal strength at 5/5 x4 extr, Normal tone, Normal affect Lymphatics: No axilla or inguinal lymphadenopathy - Studies Laboratory Data (last 24 hrs) 01/04/21 16:48: PT 16.2 H, INR 1.40 01/04/21 16:48: WBC 9.80, Hgb 9.0 L, Hct 27.3 L, Plt Count 206 01/04/21 16:48: Sodium 136, Potassium 4.4, BUN 193 H, Creatinine 21.00 H*, Glucose 156 H, Magnesium 3.8 H* D, Total Bilirubin 2.0 H, AST 52 H, ALT 38, Alkaline Phosphatase 119 H Assessment and Plan - Problems (Diagnosis) (1) ESRD (end stage renal disease) on dialysis Current Visit: Yes Status: Acute Plan: Have discussed dialysis at length with the patient. We can run it in the hospital. The problem is compliance (2) Non-compliance with renal dialysis Current Visit: Yes Status: Acute Plan: Patient is difficult for us and evidently the family to manage. The grandson states he has been refusing dialysis at home. He feigns misunderstanding. Our excellent nurse explained the need for repeated dialysis several times. Which his grandson states he has also done. Will consult social group worker. The family is considering hospice. skilled nursing for [facility] or [facility] for hospice are two options that I have given to the family. They do not want home hospice as there are small children in the home and they do not want to expose them to that. (3) CHF (congestive heart failure) Current Visit: No Status: Chronic Plan: patient is currently stable. dialysis will help Qualifiers: Heart failure type: unspecified Heart failure chronicity: chronic Qualified Code(s): I50.9 - Heart failure, unspecified Discharge Plan: Home Plan to discharge in: 24 Hours - Advance Directives Does patient have a Living Will: No Does patient have a Durable POA for Healthcare: No - Code Status/Comfort Care Code Status Assessed: No Physician Review: Patient Assessed, Agree with Above Assessment and Plan Critical Care: No Time Spent Managing Pts Care (In Minutes): 25
[2021-01-05] MEDS: carvediloL 6.25 MG TAB PO SCH ×2 (12:59→20:57)
[2021-01-05] MEDS: FERROUS SULFATE 325 MG TAB PO SCH ×2 (13:01→20:57)
--- NOTE | 2021-01-05 13:32 | CON ---
Reason For Consultation: Elevated BUN and creatinine, over volume, hypertension. History Of Present Illness: This is a pleasant 75-year-old gentleman with significant past medical history of CAD, status post non-ST elevation [place], status post ICD, diabetes complicated with neuropathy and nephropathy, chronic kidney disease stage 5/end-stage renal disease. The patient was started on dialysis last admission back in October. The patient was discharged. The patient did not go to dialysis since then. Apparently, the patient came to the hospital obtunded. The patient was not responded, found to have BUN 190 with mild acidosis, no hyperkalemia with significant elevation in the blood pressure. For that reason, the patient was taken for urgent dialysis. The patient was dialyzed yesterday, BUN down to 117. Today, the patient more awake. After long conversation with the patient, the patient agreed on dialysis and elected also to discuss with his family to make the final decision about the dialysis. Past Medical History: Includes; 1. Diabetes complicated with neuropathy and nephropathy. 2. CVA. 3. Hyperlipidemia. 4. Chronic kidney disease, status post PermCath placement, status post dialysis last month. 5. CAD, status post non-ST elevation [place] in May 2020. Past Surgical History: Includes; 1. Appendectomy. 2. Cardiac cath. 3. PermCath placement. 4. ICD. Home Medications: Include; 1. Sodium bicarb. 2. Hydralazine. 3. Lasix. 4. Cardura. 5. Plavix. 6. Calcitriol. 7. Atorvastatin. 8. Amlodipine. Current Medications: In the hospital include; 1. Tylenol. 2. Breathing treatment. 3. Amlodipine 10. 4. Calcitriol. 5. Cardura 2 mg b.i.d. 6. Plavix. 7. Pepcid. 8. Insulin. 9. Sodium bicarb. Social History: Denied smoking, denied drinking, denied drugs abuse. Family History: Positive for diabetes and hypertension. Review of Systems: Head and Neck: No red eye. No ear pain. GI: Has nausea. Has epigastric pain. : No polyuria. No dysuria. No hematuria. Acid Extractor: Not applicable. Respiratory: Has shortness of breath. Cardiovascular: No chest pain. Endocrine: No polydipsia. Skin: No rash. Neuro: Has neuropathy. Musculoskeletal: Generalized fatigue. Physical Examination: Vital Signs: When I saw the patient; blood pressure 129/63, pulse of 73, afebrile. The patient had good urine output. Chest: Crackles bilateral base. Heart: S1, S2. Systolic murmur. Abdomen: Soft, nontender. Extremities: No edema. Neurologic: Alert. No focality. Oriented. No tremor. Laboratory Data: WBC 10.4, H and H 8.8/24.3. Sodium 138, potassium 4.3, bicarb 20, BUN 117 and it was 193 yesterday, creatinine 14.3 and yesterday it was 21, GFR of 3, calcium 8.3. Troponin 0.9. Magnesium 3.8. Serum protein electrophoresis is from last admission. No monoclonal or no M spike. PTH 205. PC ratio 2.9. Assessment And Plan: 1. Chronic kidney disease stage 5, progression to end-stage renal disease with uremic symptoms, over volume with marginal acidosis, status post dialysis yesterday. I had long discussion with the patient regarding the option of renal replacement therapy. The patient agreed on dialysis. We will proceed with another session of dialysis today. Dr. Don discussed with the family. Family not decided yet about hospice care or long-term care with or without the dialysis, so we will proceed with the dialysis today and we will follow up. Family wishes. We will consult social services designee to follow up with the family and to arrange for outpatient if dialysis if needed. 2. Hypertension, controlled, optimal. I am going to utilize the blood pressure to use SUZANNE inhibitor or ARB. I am going to go ahead and discontinue Cardura, start the patient on lisinopril given the cardiac history and the diabetes, and we will follow up the patient. 3. Marginal acidosis. Currently, the patient corrected with dialysis. I am going to go ahead and discontinue bicarb. 4. Anemia of chronic kidney disease/iron deficiency anemia. Light chain disease has been ruled out. I agree with iron sulfate. I am going to increase the doses to t.i.d. We will start the patient on Retacrit and we will follow up the patient. 5. Encephalopathy secondary to metabolic secondary to uremia as above. We will dialyze the patient. After today's dialysis, the patient is going to be switched to 3 times a week. The patient is still considering to continue on dialysis. 6. Diabetes as by primary. 7. Cerebrovascular accident, currently stable. We will follow up with primary. Thank you, Dr. Don for allowing us to participate in the care of your patient. Time spent examining the patient [id number] placing order discussing with the patient reviewing data discussing the case with all of our subspecialty including hospitalist 65 minutes MICHAEL Voice ID: [id number] Report ID: [id number] VAMSI
[2021-01-05] MEDS: ATORVASTATIN 40 MG TAB PO SCH (20:57)
[2021-01-05] MEDS: JUVEN PACKET PO SCH (20:58)
[2021-01-05] MEDS ORDERED: SODIUM BICARB 325 MG TAB PO SCH (21:00)
[2021-01-05] MEDS ORDERED: FERROUS SULFATE 325 MG TAB PO SCH (21:00)
[2021-01-05] MEDS ORDERED: DOXAZOSIN 2 MG TAB PO SCH (21:00)
[2021-01-06] MEDS: INSULIN -REGULAR HUMAN 50 UNIT/0.5 ML ML SQ SCH ×4 (07:30→21:00)
[2021-01-06] MEDS: JUVEN PACKET PO SCH ×2 (09:00→20:24)
[2021-01-06] MEDS ORDERED: lisinopriL 20 MG TAB PO SCH (09:00)
[2021-01-06] MEDS ORDERED: AMLODIPINE 10 MG TAB PO SCH (09:00)
[2021-01-06] MEDS: CLOPIDOGREL 75 MG TABLET PO SCH (09:45)
[2021-01-06] MEDS: CALCITROL 0.25 MCG CAP PO SCH (09:47)
[2021-01-06] MEDS: VITAMIN D 5,000 UNIT CAP PO SCH (09:47)
[2021-01-06] MEDS: ASPIRIN 81 MG CHEWABLE TABLET PO SCH (09:48)
[2021-01-06] MEDS: FAMOTIDINE 20 MG TAB PO SCH (09:48)
[2021-01-06] MEDS: FERROUS SULFATE 325 MG TAB PO SCH ×3 (09:48→20:24)
[2021-01-06] MEDS: carvediloL 6.25 MG TAB PO SCH (09:48)
--- NOTE | 2021-01-06 16:36 | P.PN ---
Subjective Date of Service: 01/06/21 Primary Care Provider: Florencia Chief Complaint: esrd Patient is sitting in his room. He refuses to speak to me Review of Systems is unable to be obtained Physical Examination - Vital Signs Temperature: 96.4 F Blood Pressure: 110/56 Pulse: 48 Respirations: 15 Pulse Ox (%): 99 - Physical Exam General: Alert, In no apparent distress HEENT: Atraumatic, PERRLA, EOMI Neck: Supple, JVD not distended Respiratory: Clear to auscultation bilaterally, Normal air movement Cardiovascular: Regular rate/rhythm, Normal S1 S2 Gastrointestinal: Normal bowel sounds, No tenderness Musculoskeletal: No tenderness Integumentary: No rashes Neurological: Normal speech, Normal tone, Normal affect Lymphatics: No axilla or inguinal lymphadenopathy Assessment & Plan - Problems (Diagnosis) (1) Non-compliance with renal dialysis Current Visit: Yes Status: Acute Plan: Patient is difficult for us and evidently the family to manage. The grandson states he has been refusing dialysis at home. He feigns misunderstanding. Our excellent nurse explained the need for repeated dialysis several times. Which his grandson states he has also done. Will consult social economist. The family is considering hospice. alf for terminal clerk or care home for hospice are two options that I have given to the family. They do not want home hospice as there are small children in the home and they do not want to expose them to that. 01/06 Will arrange a family meeting with the family and hospice service. The patient seems to play family against his providers. the patients family is tired. He will not be compliant despite they're best efforts. If he continues to refuse dialysis. consider hospice or care home. The family and providers need to be on the same page so the patient cannot play with either parties. (2) CHF (congestive heart failure) Current Visit: No Status: Chronic Plan: patient is currently stable. dialysis will help Qualifiers: Heart failure type: unspecified Heart failure chronicity: chronic Qualified Code(s): I50.9 - Heart failure, unspecified (3) ESRD (end stage renal disease) on dialysis Current Visit: Yes Status: Acute Plan: Have discussed dialysis at length with the patient. We can run it in the hospital. The problem is compliance Discharge Plan: Home - Code Status/Comfort Care Code Status Assessed: No Physician Review: Patient Assessed, Agree with Above Assessment and Plan Critical Care: No Time Spent Managing Pts Care (In Minutes): 30
--- NOTE | 2021-01-06 17:25 | PN ---
Date of Progress Note: 01/06/2021 Subjective: The patient was admitted with uremic symptoms. The patient had dialysis the day before yesterday and yesterday, the patient develop AFib on dialysis. Physical Examination: Vital Signs: When I saw the patient; blood pressure 115/55, pulse of 49, afebrile. Chest: Clear to auscultation. Heart: S1, S2. Regular. Abdomen: Soft, nontender. Extremities: No edema. Neurologic: Alert. No focality. Laboratory Data: WBC 10.4, H and H 8.2/24.3. Sodium 138, potassium 4.3, bicarb 20, BUN 117, creatinine 14, calcium 8.3. Current Medications: The patient on include; 1. Plavix. 2. Epogen. 3. Amlodipine. 4. Atorvastatin. 5. Carvedilol 6.25 b.i.d. 6. Lisinopril 20 daily. 7. Tylenol. 8. Pepcid. Assessment And Plan: 1. Chronic kidney disease, stage 5, progression to end-stage renal disease. We still waiting for final decision of the patient and family regarding the set up of outpatient dialysis or to go with hospice. I am going to arrange for dialysis for tomorrow and we will follow up the patient. 2. Hypertension, currently hypotension. I am going to discontinue amlodipine, decrease carvedilol 3.125 b.i.d., decrease lisinopril 10 mg daily and we will follow up the patient. 3. Anemia of chronic kidney disease. Continue JOSS. 4. Over volume. Currently, the patient is normal volume. We will continue to monitor the patient. 5. Uremia, status post dialysis, recovered, resolved. Time spent examining the patient [id number] placing order discussing with the patient reviewing data discussing the case with all of our subspecialty including hospitalist 35 minutes MICHAEL Voice ID: [id number] Report ID: [id number] VAMSI
[2021-01-06] MEDS: ATORVASTATIN 40 MG TAB PO SCH (20:24)
[2021-01-06] MEDS: carvediloL 3.125 MG TAB PO SCH (20:25)
[2021-01-07 06:43] LABS: Albumin 2.3 g/dL (3.4-5.0); Bilirubin Total 1.7 mg/dL (0.2-1.0); Protein, Total 5.2 g/dL (6.4-8.2)
[2021-01-07] MEDS: INSULIN -REGULAR HUMAN 50 UNIT/0.5 ML ML SQ SCH ×4 (07:23→20:55)
[2021-01-07] MEDS: lisinopriL 10 MG TAB PO SCH (09:00)
[2021-01-07] MEDS: CALCITROL 0.25 MCG CAP PO SCH (09:00)
[2021-01-07] MEDS: carvediloL 3.125 MG TAB PO SCH ×2 (09:00→20:54)
[2021-01-07] MEDS: VITAMIN D 5,000 UNIT CAP PO SCH (09:00)
[2021-01-07] MEDS: FERROUS SULFATE 325 MG TAB PO SCH ×3 (09:00→20:54)
[2021-01-07] MEDS: CLOPIDOGREL 75 MG TABLET PO SCH (09:00)
[2021-01-07] MEDS: JUVEN PACKET PO SCH ×2 (09:00→20:54)
[2021-01-07] MEDS: ASPIRIN 81 MG CHEWABLE TABLET PO SCH (09:00)
--- NOTE | 2021-01-07 09:56 | P.PN ---
Subjective Date of Service: 01/07/21 Primary Care Provider: Florencia Chief Complaint: esrd Subjective: Other (no complaints of increased shortness of breath.) Physical Examination - Vital Signs Temperature: 96.8 F Blood Pressure: 100/44 Pulse: 41 Respirations: 18 Pulse Ox (%): 98 - Physical Exam General: Other (appears chronically ill) HEENT: Atraumatic, Normocephalic Neck: Supple Respiratory: Other (symmetric chest expansion) Cardiovascular: No rubs, No murmurs Gastrointestinal: Soft and benign Musculoskeletal: No clubbing Integumentary: No warmth Neurological: Normal tone Urinary: Other (no bladder distention) Assessment And Plan - Plan 1. Chronic kidney disease, stage 5, progression to end-stage renal disease. patient opted to transition to hospice. 2. Hypertension. BP stable. Continue current med regimen. 3. Anemia of chronic kidney disease. Continue JOSS. 4. Renal osteodystrophy. Monitor serum calcium and phosphorus. 5. Disposition. Transition to hospice ongoing. Physician Review: Patient Assessed, Agree with Above Assessment and Plan
--- NOTE | 2021-01-07 10:40 | P.PN ---
Subjective Date of Service: 01/07/21 Primary Care Provider: Florencia Chief Complaint: esrd Subjective: No new changes Patient is sitting in his room. He refuses to speak to me Have had doctor Rupesh speak with him. He agrees to dialysis. Review of Systems 10-point ROS is otherwise unremarkable General: Weakness, Malaise Physical Examination - Vital Signs Temperature: 96.8 F Blood Pressure: 100/44 Pulse: 41 Respirations: 18 Pulse Ox (%): 98 - Physical Exam General: Alert, In no apparent distress HEENT: Atraumatic, PERRLA, EOMI Neck: Supple, JVD not distended Respiratory: Clear to auscultation bilaterally, Normal air movement Cardiovascular: Regular rate/rhythm, Normal S1 S2 Gastrointestinal: Normal bowel sounds, No tenderness Musculoskeletal: No tenderness Integumentary: No rashes Neurological: Normal speech, Normal tone, Normal affect Lymphatics: No axilla or inguinal lymphadenopathy Assessment & Plan - Problems (Diagnosis) (1) Non-compliance with renal dialysis Current Visit: Yes Status: Acute Plan: Patient is difficult for us and evidently the family to manage. The grandson states he has been refusing dialysis at home. He feigns misunderstanding. Our excellent nurse explained the need for repeated dialysis several times. Which his grandson states he has also done. Will consult social services manager. The family is considering hospice. jail for termination clerk or intermediate for hospice are two options that I have given to the family. They do not want home hospice as there are small children in the home and they do not want to expose them to that. 01/07 Will run dialysis today. His family refuses to pick him up. Patient has bee refusing placement. We shouldn't discharge him today as he is not stable. May need another round of 2 of dialysis. (2) CHF (congestive heart failure) Current Visit: No Status: Chronic Plan: patient is currently stable. dialysis will help Qualifiers: Heart failure type: unspecified Heart failure chronicity: chronic Qualified Code(s): I50.9 - Heart failure, unspecified (3) ESRD (end stage renal disease) on dialysis Current Visit: Yes Status: Acute Plan: Have discussed dialysis at length with the patient. We can run it in the hospital. The problem is compliance Discharge Plan: Home Plan to discharge in: 24 Hours - Code Status/Comfort Care Code Status Assessed: No Code Status: Full Code Physician Review: Patient Assessed, Agree with Above Assessment and Plan Critical Care: No Time Spent Managing Pts Care (In Minutes): 25
[2021-01-07] MEDS ORDERED: ZIPRASIDONE MESYLA 20 MG/VIAL IM PRN (15:45)
[2021-01-07] MEDS ORDERED: WATER FOR INJ,STERILE 10 ML IM PRN (15:45)
[2021-01-07] MEDS: ATORVASTATIN 40 MG TAB PO SCH (20:55)
[2021-01-07] MEDS ORDERED: ZIPRASIDONE 20 MG CAP PO SCH (21:00)
[2021-01-08 07:13] LABS: Albumin 2.3 g/dL (3.4-5.0); Bilirubin Total 1.2 mg/dL (0.2-1.0); Potassium 3.9 mmol/L (3.5-5.1); Protein, Total 5.3 g/dL (6.4-8.2)
[2021-01-08] MEDS: INSULIN -REGULAR HUMAN 50 UNIT/0.5 ML ML SQ SCH ×4 (07:30→21:00)
[2021-01-08] MEDS: lisinopriL 10 MG TAB PO SCH ×2 (09:00→09:27)
[2021-01-08] MEDS: JUVEN PACKET PO SCH ×2 (09:00→21:00)
[2021-01-08] MEDS: carvediloL 3.125 MG TAB PO SCH ×3 (09:00→21:00)
[2021-01-08] MEDS: FAMOTIDINE 20 MG TAB PO SCH (09:25)
[2021-01-08] MEDS: CLOPIDOGREL 75 MG TABLET PO SCH (09:25)
[2021-01-08] MEDS: ASPIRIN 81 MG CHEWABLE TABLET PO SCH (09:25)
[2021-01-08] MEDS: CALCITROL 0.25 MCG CAP PO SCH (09:26)
[2021-01-08] MEDS: FERROUS SULFATE 325 MG TAB PO SCH ×3 (09:26→21:00)
[2021-01-08] MEDS: VITAMIN D 5,000 UNIT CAP PO SCH (09:28)
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
--- NOTE | 2021-01-08 12:29 | P.PN ---
Subjective Date of Service: 01/08/21 Primary Care Provider: Florencia Chief Complaint: esrd Subjctive Pt with ESRD , poor compliance with treatment , still consider Hospice option Today HD today pt to decide about goal of care Physical exam general: awake and alert, NAD , thin Neck; Supple, No elevated JVD chest CTAB, no rlaes or wheezes hear: RRR, normal S1,2 no murmur or rub Chest: CTAB, no rales or wheezes Abdomen: Soft , Nt Extremities No edema or ulcer A/p 1. end-stage renal disease. HD today 2. Hypertension. BP stable. Continue current med regimen. 3. Anemia of chronic kidney disease. Continue JOSS. 4. Renal osteodystrophy. Monitor serum calcium and phosphorus. 5. elevated LFT; cpt top trend , off statins Pt with poor compliance , he is consdiering comfort care Physical Examination - Vital Signs Temperature: 97.6 F Blood Pressure: 93/45 Pulse: 54 Respirations: 14 Pulse Ox (%): 97 Assessment And Plan Physician Review: Patient Assessed, Agree with Above Assessment and Plan
[2021-01-09] MEDS: INSULIN -REGULAR HUMAN 50 UNIT/0.5 ML ML SQ SCH ×4 (07:30→21:00)
[2021-01-09] MEDS: CALCITROL 0.25 MCG CAP PO SCH (09:00)
[2021-01-09] MEDS: lisinopriL 10 MG TAB PO SCH (09:00)
[2021-01-09] MEDS: CLOPIDOGREL 75 MG TABLET PO SCH (09:00)
[2021-01-09] MEDS: VITAMIN D 5,000 UNIT CAP PO SCH (09:00)
[2021-01-09] MEDS: JUVEN PACKET PO SCH ×2 (09:00→21:00)
[2021-01-09] MEDS: ASPIRIN 81 MG CHEWABLE TABLET PO SCH (09:00)
[2021-01-09] MEDS: FERROUS SULFATE 325 MG TAB PO SCH ×3 (09:00→21:00)
[2021-01-09] MEDS: carvediloL 3.125 MG TAB PO SCH ×2 (09:00→21:00)
--- NOTE | 2021-01-09 12:11 | P.PN ---
Subjective Date of Service: 01/09/21 Primary Care Provider: Florencia Chief Complaint: esrd Patient refused dialysis yesterday. He only answers by asking for Harlan. Also for wine. Review of Systems is unable to be obtained Physical Examination - Vital Signs Temperature: 97 F Blood Pressure: 113/52 Pulse: 53 Respirations: 18 Pulse Ox (%): 99 - Physical Exam General: In no apparent distress, Demented HEENT: Atraumatic, PERRLA, EOMI Neck: Supple, JVD not distended Respiratory: Clear to auscultation bilaterally, Normal air movement Cardiovascular: Regular rate/rhythm, Normal S1 S2 Gastrointestinal: Normal bowel sounds, No tenderness Musculoskeletal: No tenderness Integumentary: No rashes Neurological: Normal speech, Normal tone, Normal affect Lymphatics: No axilla or inguinal lymphadenopathy Assessment & Plan - Problems (Diagnosis) (1) Non-compliance with renal dialysis Current Visit: Yes Status: Acute Plan: Patient is difficult for us and evidently the family to manage. The grandson states he has been refusing dialysis at home. He feigns misunderstanding. Our excellent nurse explained the need for repeated dialysis several times. Which his grandson states he has also done. Will consult social work msw. The family is considering hospice. retirement for half-way or care home for hospice are two options that I have given to the family. They do not want home hospice as there are small children in the home and they do not want to expose them to that. [facility]/07 [facility]. needs medicaid for inpatient hospice. (2) CHF (congestive heart failure) Current Visit: No Status: Chronic Plan: patient is currently stable. dialysis will help Qualifiers: Heart failure type: unspecified Heart failure chronicity: chronic Qualified Code(s): I50.9 - Heart failure, unspecified (3) ESRD (end stage renal disease) on dialysis Current Visit: Yes Status: Acute Plan: Have discussed dialysis at length with the patient. We can run it in the hospital. The problem is compliance (4) End of life care Current Visit: Yes Status: Acute Plan: Will have him seen by Dr. Mullen As he is continuing to refuse dialysis it is not likely that he will survive very long. With his BUN as high as it is he is not likely in his right mind. He has been refusing dialysis for a long time. Will consider starting inpatient hospice. With plans to move him to a facility when he had medicaid. Will start working on this with social work msw. have discussed with his stepdaughter Mrs Miguel Kent. Hopefully we can get some assistance from the family Discharge Plan: Home Plan to discharge in: 24 Hours Physician Review: Patient Assessed, Agree with Above Assessment and Plan Critical Care: No Time Spent Managing Pts Care (In Minutes): 30
--- NOTE | 2021-01-09 17:34 | P.PN ---
Subjective Date of Service: 01/09/21 Primary Care Provider: Florencia Chief Complaint: esrd Subjctive Pt with ESRD , poor compliance with treatment , family to consider Hospice option Today Pt initially refused HD then agreed, he had HD yesterday with no improvement in renal function he refused all treatment today waiting for family to decide about goal of care Physical exam general: awakeconfused Neck; Supple, No elevated JVD chest CTAB, no rlaes or wheezes hear: RRR, normal S1,2 no murmur or rub Chest: CTAB, no rales or wheezes Abdomen: Soft , Nt Extremities No edema or ulcer A/p 1. end-stage renal disease. HD today 2. Hypertension. BP stable. Continue current med regimen. 3. Anemia of chronic kidney disease. Continue JOSS. 4. Renal osteodystrophy. Monitor serum calcium and phosphorus. 5. elevated LFT; cpt top trend , off statins Pt with poor compliance , waiting for family to decide about goal of care Physical Examination - Vital Signs Temperature: 97 F Blood Pressure: 113/52 Pulse: 53 Respirations: 18 Pulse Ox (%): 99 Assessment And Plan Physician Review: Patient Assessed, Agree with Above Assessment and Plan
[2021-01-09 18:41] LABS: HBsAG Nonreactive (Nonreactive)
[2021-01-10] MEDS: INSULIN -REGULAR HUMAN 50 UNIT/0.5 ML ML SQ SCH ×4 (07:30→21:00)
[2021-01-10] MEDS: JUVEN PACKET PO SCH (09:00)
[2021-01-10] MEDS: lisinopriL 10 MG TAB PO SCH (09:57)
[2021-01-10] MEDS: ASPIRIN 81 MG CHEWABLE TABLET PO SCH (09:57)
[2021-01-10] MEDS: FAMOTIDINE 20 MG TAB PO SCH (09:57)
[2021-01-10] MEDS: carvediloL 3.125 MG TAB PO SCH ×2 (09:58→21:00)
[2021-01-10] MEDS: FERROUS SULFATE 325 MG TAB PO SCH ×4 (09:58→22:28)
[2021-01-10] MEDS: VITAMIN D 5,000 UNIT CAP PO SCH (09:58)
[2021-01-10] MEDS: CLOPIDOGREL 75 MG TABLET PO SCH (09:58)
[2021-01-10] MEDS: CALCITROL 0.25 MCG CAP PO SCH (09:58)
--- NOTE | 2021-01-10 10:57 | P.PN ---
Subjective Date of Service: 01/10/21 Primary Care Provider: Florencia Chief Complaint: esrd Subjective: No new changes Patient still refusing dialysis Review of Systems 10-point ROS is otherwise unremarkable Physical Examination - Vital Signs Temperature: 97.8 F Blood Pressure: 146/61 Pulse: 67 Respirations: 14 Pulse Ox (%): 99 - Physical Exam General: Alert, In no apparent distress HEENT: Atraumatic, PERRLA, EOMI Neck: Supple, JVD not distended Respiratory: Clear to auscultation bilaterally, Normal air movement Cardiovascular: Regular rate/rhythm, Normal S1 S2 Gastrointestinal: Normal bowel sounds, No tenderness Musculoskeletal: No tenderness Integumentary: No rashes Neurological: Normal speech, Normal tone, Normal affect Lymphatics: No axilla or inguinal lymphadenopathy Assessment & Plan - Problems (Diagnosis) (1) Non-compliance with renal dialysis Current Visit: Yes Status: Acute Plan: Patient is difficult for us and evidently the family to manage. The grandson states he has been refusing dialysis at home. He feigns misunderstanding. Our excellent nurse explained the need for repeated dialysis several times. Which his grandson states he has also done. Will consult neonatal social worker. The family is considering hospice. [facility] for terminal operator or residential for hospice are two options that I have given to the family. They do not want home hospice as there are small children in the home and they do not want to expose them to that. 01/10 Plans for hospice. We are having difficulty with contacting the family. Will have him seen by Psychiatry for evaluations (2) CHF (congestive heart failure) Current Visit: No Status: Chronic Plan: patient is currently stable. dialysis will help Qualifiers: Heart failure type: unspecified Heart failure chronicity: chronic Qualified Code(s): I50.9 - Heart failure, unspecified (3) ESRD (end stage renal disease) on dialysis Current Visit: Yes Status: Acute Plan: Have discussed dialysis at length with the patient. We can run it in the hospital. The problem is compliance (4) End of life care Current Visit: Yes Status: Acute Plan: Will have him seen by Dr. Mullen As he is continuing to refuse dialysis it is not likely that he will survive very long. With his BUN as high as it is he is not likely in his right mind. He has been refusing dialysis for a long time. Will consider starting inpatient hospice. With plans to move him to a facility when he had medicaid. Will start working on this with neonatal social worker. have discussed with his stepdaughter Mrs Miguel Kent. Hopefully we can get some assistance from the family Discharge Plan: Home Plan to discharge in: 24 Hours - Code Status/Comfort Care Code Status Assessed: No Physician Review: Patient Assessed, Agree with Above Assessment and Plan Critical Care: No Time Spent Managing Pts Care (In Minutes): 25
--- NOTE | 2021-01-11 02:38 | PN ---
Date of Progress Note: 01/10/2021 Chief Complaint: End-stage renal disease, dialysis was initiated. History Of Present Illness: The patient primarily agrees to proceed with dialysis and that he receiv ed dialysis yesterday. The patient today is undecided. I discussed with the patient the risk of hyp erkalemia and risk of sudden cardiac arrest if he does not resume dialysis. He may have uremia with all of the sequelae including pericardial effusion, pulmonary edema, and cardiac arrest due to hyperk alemia. The patient is to decide about dialysis. He may need to resume dialysis tomorrow. Review of Systems: Denies fever or chills. Physical Examination: Lungs: Clear to auscultation bilaterally. Heart: S1, S2. Abdomen: Soft, benign. Extremities: No edema. Impression And Plan: 1.End-stage renal disease. Dialysis is scheduled for tomorrow. 2.Hypertension. Blood pressure is stable. 3.Anemia due to chronic kidney disease. Continue JOSS. 4.Renal osteodystrophy. Monitor serum calcium and phosphorus and adjust treatment accordingly. MARITA/SAGE Voice ID: [id number] Report ID: [id number]
[2021-01-11 07:00] LABS: Potassium 3.8 mmol/L (3.5-5.1)
--- NOTE | 2021-01-11 07:20 | P.PN ---
Subjective Date of Service: 01/11/21 Primary Care Provider: Florencia Chief Complaint: esrd Subjective: Other (He refused HD today.) Physical Examination - Vital Signs Temperature: 97.4 F Blood Pressure: 115/62 Pulse: 72 Respirations: 20 Pulse Ox (%): 98 - Physical Exam General: Other (appears as his stated age) HEENT: Atraumatic, Normocephalic Neck: Supple, JVD not distended Respiratory: Other (symmetric chest expansion) Cardiovascular: No rubs, No murmurs Gastrointestinal: Soft and benign, No guarding Musculoskeletal: No clubbing Integumentary: No warmth Neurological: Normal tone Urinary: Other (no bladder distention) Assessment And Plan - Plan 1. Chronic kidney disease, stage 5, progression to end-stage renal disease. patient previously opted to transition to hospice, now wishes to continue with HD, but he refused HD today; states he wants dialysis tomorrow instead. I ordered HD for tomorrow. Will give IV mannitol w/ HD tomorrow given high BUN. 2. Hypertension. BP stable. Continue current med regimen. 3. Anemia of chronic kidney disease. Continue JOSS. 4. Renal osteodystrophy. Monitor serum calcium and phosphorus. Physician Review: Patient Assessed, Agree with Above Assessment and Plan
[2021-01-11] MEDS: INSULIN -REGULAR HUMAN 50 UNIT/0.5 ML ML SQ SCH ×4 (07:30→21:00)
--- NOTE | 2021-01-11 08:36 | P.PN ---
Subjective Date of Service: 01/11/21 Primary Care Provider: Florencia Chief Complaint: esrd Patient not very responsive. Awakens and grunts Review of Systems is unable to be obtained Physical Examination - Vital Signs Temperature: 97.4 F Blood Pressure: 115/62 Pulse: 72 Respirations: 20 Pulse Ox (%): 98 - Physical Exam General: In no apparent distress HEENT: Atraumatic, PERRLA, EOMI Neck: Supple, JVD not distended Respiratory: Clear to auscultation bilaterally, Normal air movement Cardiovascular: Regular rate/rhythm, Normal S1 S2 Gastrointestinal: Normal bowel sounds, No tenderness Musculoskeletal: No tenderness Integumentary: No rashes Neurological: Normal speech, Normal tone, Normal affect Lymphatics: No axilla or inguinal lymphadenopathy Assessment & Plan - Problems (Diagnosis) (1) Non-compliance with renal dialysis Current Visit: Yes Status: Acute Plan: Patient is difficult for us and evidently the family to manage. The grandson states he has been refusing dialysis at home. He feigns misunderstanding. Our excellent nurse explained the need for repeated dialysis several times. Which his grandson states he has also done. Will consult social insurance analyst. The family is considering hospice. [facility] terminal superintendent or [facility] two options that I have given to the family. They do not want home hospice as there are small children in the home and they do not want to expose them to that. 01/11 Plans for hospice. Will change to [facility]. [facility] will accept the patient with medicaid pending (2) CHF (congestive heart failure) Current Visit: No Status: Chronic Plan: patient is currently stable. dialysis will help Qualifiers: Heart failure type: unspecified Heart failure chronicity: chronic Qualified Code(s): I50.9 - Heart failure, unspecified (3) ESRD (end stage renal disease) on dialysis Current Visit: Yes Status: Acute Plan: Have discussed dialysis at length with the patient. We can run it in the hospital. The problem is compliance (4) End of life care Current Visit: Yes Status: Acute Plan: Will have him seen by Dr. Mullen As he is continuing to refuse dialysis it is not likely that he will survive very long. With his BUN as high as it is he is not likely in his right mind. He has been refusing dialysis for a long time. Will consider starting inpatient hospice. With plans to move him to a facility when he had medicaid. Will start working on this with social insurance analyst. have discussed with his stepdaughter Mrs Miguel Kent. Hopefully we can get some assistance from the family Discharge Plan: Other Plan to discharge in: Greater than 2 days - Code Status/Comfort Care Code Status Assessed: No Physician Review: Patient Assessed, Agree with Above Assessment and Plan Critical Care: No Time Spent Managing Pts Care (In Minutes): 20
[2021-01-11] MEDS: ASPIRIN 81 MG CHEWABLE TABLET PO SCH (09:00)
[2021-01-11] MEDS: lisinopriL 10 MG TAB PO SCH (09:00)
[2021-01-11] MEDS: FERROUS SULFATE 325 MG TAB PO SCH ×3 (09:00→21:46)
[2021-01-11] MEDS: VITAMIN D 5,000 UNIT CAP PO SCH (09:00)
[2021-01-11] MEDS: CALCITROL 0.25 MCG CAP PO SCH (09:00)
[2021-01-11] MEDS: carvediloL 3.125 MG TAB PO SCH ×2 (09:00→21:00)
[2021-01-11] MEDS: CLOPIDOGREL 75 MG TABLET PO SCH (09:00)
--- NOTE | 2021-01-11 11:31 | P.PN ---
Date of Service: 01/11/21 certificate of terminal illness. The patient has a history of esrd. He has been refusing dialysis. He went home and would not go to the dialysis center. The patient is refusing dialysis on an almost dally basis. Is getting more lethargic an non responsive. He is not likely to survive very long without dialysis. He has made his wishes to not have dialysis known several times to staff as well as family members
[2021-01-12] MEDS: ALTEPLASE 2 MG/VIAL IV SCH ×2 (00:24→23:00)
[2021-01-12 06:15] LABS: Absolute Lymphocytes (CBC) 0.8 K/uL (0.7-4.9); Basophils % 0.5 % (0-1.3); Hematocrit 21.1 % (39.6-49.0); MPV 11.1 fL (7.6-11.3); RBC Red Blood Cell Count 2.34 M/uL (4.33-5.43)
[2021-01-12 06:43] LABS: Albumin 2.1 g/dL (3.4-5.0); Phosphorus 8.6 mg/dL (2.5-4.9); Potassium 3.9 mmol/L (3.5-5.1)
[2021-01-12] MEDS: INSULIN -REGULAR HUMAN 50 UNIT/0.5 ML ML SQ SCH ×4 (07:30→21:00)
[2021-01-12] MEDS: FAMOTIDINE 20 MG TAB PO SCH (08:41)
[2021-01-12] MEDS: VITAMIN D 5,000 UNIT CAP PO SCH (08:41)
[2021-01-12] MEDS: CLOPIDOGREL 75 MG TABLET PO SCH (08:41)
[2021-01-12] MEDS: CALCITROL 0.25 MCG CAP PO SCH (08:42)
[2021-01-12] MEDS: ASPIRIN 81 MG CHEWABLE TABLET PO SCH (08:42)
[2021-01-12] MEDS: FERROUS SULFATE 325 MG TAB PO SCH ×3 (08:42→21:00)
[2021-01-12] MEDS: carvediloL 3.125 MG TAB PO SCH (08:48)
[2021-01-12] MEDS: lisinopriL 10 MG TAB PO SCH (08:49)
[2021-01-12] MEDS: MANNITOL 25% 12.5 GM/50 ML VIAL IV ONE ×4 (09:00→20:18)
--- NOTE | 2021-01-12 13:06 | P.DS ---
Admission Date: 01/04/21 Discharge Date: 01/12/21 Primary Care Provider: Florencia Disposition: HOSPICE-MEDICAL FACILITY Discharge Condition: FAIR Reason for Admission: esrd - Problems (1) Non-compliance with renal dialysis Current Visit: Yes Status: Acute (2) CHF (congestive heart failure) Current Visit: No Status: Chronic Qualifiers: Heart failure type: unspecified Heart failure chronicity: chronic Qualified Code(s): I50.9 - Heart failure, unspecified (3) ESRD (end stage renal disease) on dialysis Current Visit: Yes Status: Acute (4) End of life care Current Visit: Yes Status: Acute Brief History of Present Illness: Patient is here after non compliance with dialysis. He was admitted and start on dialysis on the last admission. The patient is not compliant has not been to dialysis for approx 3 weeks. He came back to the hospital complainting of GERD symptoms. Have spoken to the grandson. He lives with and grandsons family. The patient has been vomiting frequently. Getting weaker. Have met with him with Dr. Quintana. As he states he does not understand us we had the nurse Aranza speak Kazakh to him. As per the last admission he did not speak with our Kazakh speaking staff in the office. He states he was worried about the expense. Per the grandson he would not go despite the grandsons best efforts. Hospital Course: Patient admitted for esrd. he was continously refusing dialysis. He agreed to hospice. This morning he is lethargic and anemic. Most likely will not last long. Will discharge him to inpatient hospice. Vital Signs/Physical Exam: Temp Pulse Resp BP Pulse Ox 97.7 F 53 17 93/70 100 01/12/21 08:00 01/12/21 08:49 01/12/21 08:00 01/12/21 08:49 01/12/21 08:00 General: In no apparent distress, Unresponsive HEENT: Atraumatic, PERRLA, EOMI Neck: Supple, JVD not distended Respiratory: Clear to auscultation bilaterally, Normal air movement Cardiovascular: Regular rate/rhythm, Normal S1 S2 Gastrointestinal: Normal bowel sounds, No tenderness Musculoskeletal: No tenderness Integumentary: No rashes Neurological: Normal speech, Normal tone, Normal affect Lymphatics: No axilla or inguinal lymphadenopathy Laboratory Data at Discharge: WBC 9.30 K/uL (4.3-10.9) 01/12/21 05:35 Hgb 6.9 g/dL (13.6-17.9) L* 01/12/21 05:35 Hct 21.1 % (39.6-49.0) L 01/12/21 05:35 Plt Count 104 K/uL (152-406) L D 01/12/21 05:35 PT 16.2 SECONDS (9.5-12.5) H 01/04/21 16:48 INR 1.40 01/04/21 16:48 Sodium 140 mmol/L (136-145) 01/12/21 05:35 Potassium 3.9 mmol/L (3.5-5.1) 01/12/21 05:35 BUN 141 mg/dL (7-18) H D 01/12/21 05:35 Creatinine 11.20 mg/dL (0.55-1.3) H* 01/12/21 05:35 Glucose 126 mg/dL (74-106) H 01/12/21 05:35 Phosphorus 8.6 mg/dL (2.5-4.9) H* 01/12/21 05:35 Magnesium 3.0 mg/dL (1.8-2.4) H D 01/12/21 05:35 Total Bilirubin Cancelled 01/09/21 06:00 AST Cancelled 01/09/21 06:00 ALT Cancelled 01/09/21 06:00 Alkaline Phosphatase Cancelled 01/09/21 06:00 Troponin I 0.92 ng/mL (0.0-0.045) H* 01/05/21 00:25 Home Medications: Amlodipine [Norvasc*] 10 mg PO DAILY #30 tab 11/20/20 Atorvastatin Calcium [Lipitor] 40 mg PO BEDTIME #30 tab 11/20/20 Calcitrol [Rocaltrol*] 0.25 mcg PO DAILY #30 cap 11/20/20 Cholecalciferol (Vitamin D3) [Vitamin D 5,000 IU Cap*] 5,000 unit PO DAILY #30 cap 11/20/20 Clopidogrel Bisulfate [Plavix*] 75 mg PO DAILY #30 tablet 11/20/20 Doxazosin [Cardura*] 2 mg PO BID #60 tab 11/20/20 Famotidine [Pepcid*] 20 mg PO Q48H #15 tab 11/20/20 Ferrous Sulfate [Ferrous Sulfate*] 325 mg PO BID #60 tab 11/20/20 Furosemide [Lasix*] 20 mg PO BIDL #60 tab 11/20/20 Hydralazine HCl [Apresoline] 100 mg PO TID #180 tablet 11/20/20 Sodium Bicarbonate 650 mg PO BID #60 tablet 11/20/20 Activity: Fall precautions Followup: OOT,OOT [Primary Care Provider] - Physician Review: Patient Assessed, Agree with Above Assessment and Plan Time spent managing pt's care (in minutes): 30
--- NOTE | 2021-01-12 14:04 | PN ---
Date of Progress Note: 01/12/2021 Subjective: The patient was admitted with progressing of advanced chronic kidney disease. The patient found to be uremic. The patient was initiated on renal replacement therapy. The patient is still debating between hospice and dialysis today. He has agreed on dialysis. The patient is scheduled for dialysis today. Physical Examination: Vital Signs: Blood pressure 93/70, pulse of 53, afebrile. Chest: Clear to auscultation. Heart: S1, S2. Regular. Abdomen: Soft, nontender. Extremity: No edema. Neuro: Alert, sleepy. No focality. Laboratory Data: WBC 9.3, H and H 6.9/21.1. Sodium 140, potassium 3.9, bicarb 21, BUN 141, creatinine 11.2, calcium 7.4, phosphorus 8.6, magnesium of 3, albumin 2.1. Corrected calcium is 10.2. Current Medications: The patient on include Plavix, aspirin, ferrous sulfate, heparin, carvedilol 3.25, lisinopril 10, Pepcid, Zofran, cholecalciferol, calcitriol. Assessment And Plan: 1. End-stage renal disease. We will continue dialysis 3 times a week. The patient had severe disproportion in BUN and creatinine possible secondary to GI loss supported with drop in hemoglobin. I am going to go ahead and arrange for blood transfusion today with dialysis and we will follow up the patient and we will monitor closely. We will continue JOSS. 2. Hypertension. Currently, blood pressure on the lower side. I going to hold all blood pressure medications. 3. Secondary hyperparathyroidism. We will start the patient on Renvela. 4. Deconditioning. Continue PT/OT. 5. Diabetes as by primary. Time spent examining the patient [id number] placing order discussing with the patient reviewing data discussing the case with all of our subspecialty including hospitalist 35 minutes MICHAEL Voice ID: [id number] Report ID: [id number] [id number]
[2021-01-12] MEDS: SEVELAMER CARBONATE 800 MG TABLET PO SCH (17:00)
[2021-01-12] MEDS ORDERED: WATER FOR INJ,STERILE 10 ML ONE (23:33)
[2021-01-12] MEDS ORDERED: ALTEPLASE 2 MG/VIAL IV ONE (23:35)
[2021-01-13 05:09] LABS: Hematocrit 28.2 % (39.6-49.0)
[2021-01-13 05:50] VITALS: O2SAT 98
[2021-01-13] MEDS: INSULIN -REGULAR HUMAN 50 UNIT/0.5 ML ML SQ SCH ×3 (07:30→16:08)
[2021-01-13] MEDS: SEVELAMER CARBONATE 800 MG TABLET PO SCH ×3 (08:00→16:09)
[2021-01-13] MEDS: FERROUS SULFATE 325 MG TAB PO SCH ×2 (09:00→13:31)
[2021-01-13] MEDS: CLOPIDOGREL 75 MG TABLET PO SCH (09:00)
[2021-01-13] MEDS: CALCITROL 0.25 MCG CAP PO SCH (09:00)
[2021-01-13] MEDS: ASPIRIN 81 MG CHEWABLE TABLET PO SCH (09:00)
[2021-01-13] MEDS ORDERED: MORPHINE 2 MG/ML SYR IV STA (09:53)
[2021-01-13] MEDS ORDERED: HALOPERIDOL LACT 5 MG/ML INJ IV PRN (10:51)
[2021-01-13] MEDS ORDERED: HALOPERIDOL LACT 5 MG/ML INJ ONE (11:19)
[2021-01-13] MEDS ORDERED: CALCITROL 0.25 MCG CAP PO SCH (13:00)
--- NOTE | 2021-01-13 13:20 | PN ---
Date of Progress Note: 01/13/2021 Subjective: The patient was admitted with acute kidney injury on advanced chronic kidney disease. The patient did not go to dialysis after has been set up. The patient admitted with uremic encephalopathy. After dialyzed, the patient back to his baseline. Unfortunately with the family issue and poor communication, the patient is still eager to go home. Yesterday, the patient had dialysis, tolerated the dialysis. We managed to transfuse 2 units. Physical Examination: Vital Signs: Blood pressure 119/60, pulse of 52, afebrile. Chest: Clear to auscultation. Heart: S1, S2. Systolic murmur. Abdomen: Soft, nontender. Extremities: No edema. Neurologic: Alert, oriented x3. No focal. No tremor. Laboratory Data: H and H 9.4/28.2 after transfusion. Sodium 140, potassium 3.9, bicarb 21, BUN 141, creatinine 11.2, calcium 7.4, phosphorus 8.6, magnesium of 3, albumin 2.1. Corrected calcium is 10.2. Current Medications: The patient on include; 1. Aspirin. 2. Albuterol. 3. Epogen. 4. Ambien. 5. Renvela 2 tablets with each meal. 6. Pepcid. 7. Calcitriol. Assessment And Plan: 1. Chronic kidney disease, stage 4, progression to end-stage renal disease. I had long conversation with the patient with the help of a training and development head and in the presence of the nurses regarding the option of treatment. The patient is eager to go home even though that there is no setup for any safe place to go. His family not willing to take him back home. The patient still in denial about that, refused to go to halfway, but the patient is still agreeable on doing dialysis. Anyhow, dialysis needs to be more compliant. I had long discussion with the patient regarding the need to set up for dialysis and for safe discharge planning. We will discuss also with Dr. Don. The patient agreed to do dialysis today given the severe elevation in the BUN. I am going to go ahead and arrange for session of dialysis today, then hopefully we can put him on 3 times a week and we will monitor the patient. 2. Hypertension, controlled, optimal. Continue current treatment. 3. Secondary hyperparathyroidism with elevation in calcium. I am going to go ahead and continue Renvela. Decrease calcitriol every other day. 4. Anemia of chronic kidney disease/possible GI loss, status post transfusion. Continue JOSS, p.r.n. transfusion. 5. Deconditioning as by primary. 6. Encephalopathy secondary to uremia, recovered. Time spent examining the patient [id number] placing order discussing with the patient reviewing data discussing the case with all of our subspecialty including hospitalist 35 minutes MICHAEL Voice ID: [id number] Report ID: [id number]
--- NOTE | 2021-01-13 15:14 | P.PN ---
Subjective Date of Service: 01/13/21 Primary Care Provider: Florencia Chief Complaint: esrd more awake today. Will work on hospice. He does not have medicaid for placement Review of Systems 10-point ROS is otherwise unremarkable Physical Examination - Vital Signs Temperature: 96.8 F Blood Pressure: 119/60 Pulse: 52 Respirations: 17 Pulse Ox (%): 98 - Physical Exam General: Alert, In no apparent distress HEENT: Atraumatic, PERRLA, EOMI Neck: Supple, JVD not distended Respiratory: Clear to auscultation bilaterally, Normal air movement Cardiovascular: Regular rate/rhythm, Normal S1 S2 Gastrointestinal: Normal bowel sounds, No tenderness Musculoskeletal: No tenderness Integumentary: No rashes Neurological: Normal speech, Normal tone, Normal affect Lymphatics: No axilla or inguinal lymphadenopathy Assessment & Plan - Problems (Diagnosis) (1) Non-compliance with renal dialysis Current Visit: Yes Status: Acute Plan: Patient is difficult for us and evidently the family to manage. The grandson states he has been refusing dialysis at home. He feigns misunderstanding. Our excellent nurse explained the need for repeated dialysis several times. Which his grandson states he has also done. Will consult social media strategist. The family is considering hospice. residential for [facility] or custodial for hospice are two options that I have given to the family. They do not want home hospice as there are small children in the home and they do not want to expose them to that. 01/11 Plans for hospice. Will change to dnr. [facility] will accept the patient with medicaid pending (2) CHF (congestive heart failure) Current Visit: No Status: Chronic Plan: patient is currently stable. dialysis will help Qualifiers: Heart failure type: unspecified Heart failure chronicity: chronic Qualified Code(s): I50.9 - Heart failure, unspecified (3) ESRD (end stage renal disease) on dialysis Current Visit: Yes Status: Acute Plan: Have discussed dialysis at length with the patient. We can run it in the hospital. The problem is compliance (4) End of life care Current Visit: Yes Status: Acute Plan: Will have him seen by Dr. Mullen As he is continuing to refuse dialysis it is not likely that he will survive very long. With his BUN as high as it is he is not likely in his right mind. He has been refusing dialysis for a long time. Will consider starting inpatient hospice. With plans to move him to a facility when he had medicaid. Will start working on this with social media strategist. have discussed with his stepdaughter Mrs Miguel Kent. Hopefully we can get some assistance from the family Discharge Plan: Other (inpatient hospice) Plan to discharge in: 24 Hours - Code Status/Comfort Care Code Status Assessed: No Physician Review: Patient Assessed, Agree with Above Assessment and Plan Critical Care: No Time Spent Managing Pts Care (In Minutes): 25
[2021-01-13] MEDS ORDERED: ACETAMINOPHEN 325 MG TABLET PO PRN (16:00)
[2021-01-13 17:56] VITALS: BP 139/66; TEMP 97.8
--- NOTE | 2021-01-14 16:49 | P.DS ---
Admission Date: 01/04/21 Discharge Date: 01/14/21 Primary Care Provider: Florencia Disposition: HOSPICE-MEDICAL FACILITY Discharge Condition: FAIR Reason for Admission: esrd - Problems (1) Non-compliance with renal dialysis Status: Acute (2) CHF (congestive heart failure) Status: Chronic Qualifiers: Heart failure type: unspecified Heart failure chronicity: chronic Qualified Code(s): I50.9 - Heart failure, unspecified (3) ESRD (end stage renal disease) on dialysis Status: Acute (4) End of life care Status: Acute Brief History of Present Illness: Patient is here after non compliance with dialysis. He was admitted and start on dialysis on the last admission. The patient is not compliant has not been to dialysis for approx 3 weeks. He came back to the hospital complainting of GERD symptoms. Have spoken to the grandson. He lives with and grandsons family. The patient has been vomiting frequently. Getting weaker. Have met with him with Dr. Quintana. As he states he does not understand us we had the nurse Aranza speak [place] to him. As per the last admission he did not speak with our [place] speaking staff in the office. He states he was worried about the expense. Per the grandson he would not go despite the grandsons best efforts. Hospital Course: Patient admitted for esrd. he was continously refusing dialysis. He agreed to hospice. This morning he is lethargic and anemic. Most likely will not last long. Will discharge him to inpatient hospice. 01/14 Patient was held as we could not do inpatient dialysis. [facility]. Will have an inpatient hospice. Vital Signs/Physical Exam: Temp Pulse Resp BP Pulse Ox 97.8 F 55 17 139/66 98 01/13/21 16:00 01/13/21 16:00 01/13/21 16:00 01/13/21 16:00 01/13/21 16:00 General: Unresponsive HEENT: Atraumatic, PERRLA, EOMI Neck: Supple, JVD not distended Respiratory: Clear to auscultation bilaterally, Normal air movement Cardiovascular: Regular rate/rhythm, Normal S1 S2 Gastrointestinal: Normal bowel sounds, No tenderness Musculoskeletal: No tenderness Integumentary: No rashes Neurological: Normal speech, Normal tone, Normal affect Lymphatics: No axilla or inguinal lymphadenopathy Laboratory Data at Discharge: WBC 9.30 K/uL (4.3-10.9) 01/12/21 05:35 Hgb 9.4 g/dL (13.6-17.9) L D 01/13/21 02:09 Hct 28.2 % (39.6-49.0) L D 01/13/21 02:09 Plt Count 104 K/uL (152-406) L D 01/12/21 05:35 PT 16.2 SECONDS (9.5-12.5) H 01/04/21 16:48 INR 1.40 01/04/21 16:48 Sodium 140 mmol/L (136-145) 01/12/21 05:35 Potassium 3.9 mmol/L (3.5-5.1) 01/12/21 05:35 BUN 141 mg/dL (7-18) H D 01/12/21 05:35 Creatinine 11.20 mg/dL (0.55-1.3) H* 01/12/21 05:35 Glucose 126 mg/dL (74-106) H 01/12/21 05:35 Phosphorus 8.6 mg/dL (2.5-4.9) H* 01/12/21 05:35 Magnesium 3.0 mg/dL (1.8-2.4) H D 01/12/21 05:35 Total Bilirubin Cancelled 01/09/21 06:00 AST Cancelled 01/09/21 06:00 ALT Cancelled 01/09/21 06:00 Alkaline Phosphatase Cancelled 01/09/21 06:00 Troponin I 0.92 ng/mL (0.0-0.045) H* 01/05/21 00:25 Home Medications: Amlodipine [Norvasc*] 10 mg PO DAILY #30 tab 11/20/20 Atorvastatin Calcium [Lipitor] 40 mg PO BEDTIME #30 tab 11/20/20 Calcitrol [Rocaltrol*] 0.25 mcg PO DAILY #30 cap 11/20/20 Cholecalciferol (Vitamin D3) [Vitamin D 5,000 IU Cap*] 5,000 unit PO DAILY #30 cap 11/20/20 Clopidogrel Bisulfate [Plavix*] 75 mg PO DAILY #30 tablet 11/20/20 Doxazosin [Cardura*] 2 mg PO BID #60 tab 11/20/20 Famotidine [Pepcid*] 20 mg PO Q48H #15 tab 11/20/20 Ferrous Sulfate [Ferrous Sulfate*] 325 mg PO BID #60 tab 11/20/20 Furosemide [Lasix*] 20 mg PO BIDL #60 tab 11/20/20 Hydralazine HCl [Apresoline] 100 mg PO TID #180 tablet 11/20/20 Sodium Bicarbonate 650 mg PO BID #60 tablet 11/20/20 Activity: Fall precautions Followup: OOT,OOT [Primary Care Provider] - Time spent managing pt's care (in minutes): 20
== END 2021-01-13 19:23 | disposition hospice, inpatient (51) | DRG 291 ==
LOC: ER 16:10 → ERHOLD 19:08 → 2ND 20:06
PROVIDERS: ADMIT Internal Medicine; ATTEND Internal Medicine
PROC: 5A1D70Z Performance of Urinary Filtration, Intermittent, Less than 6 Hours Per Day (ICD-10-PCS; principal; 2021-01-04)
PROC: 5A1D70Z Performance of Urinary Filtration, Intermittent, Less than 6 Hours Per Day (ICD-10-PCS; 2021-01-05)
PROC: 5A1D70Z Performance of Urinary Filtration, Intermittent, Less than 6 Hours Per Day (ICD-10-PCS; 2021-01-08)
PROC: 5A1D70Z Performance of Urinary Filtration, Intermittent, Less than 6 Hours Per Day (ICD-10-PCS; 2021-01-12)
DX: I13.2 Hypertensive heart and chronic kidney disease with heart failure and with stage 5 chronic kidney disease, or end stage renal disease (principal); N18.6 End stage renal disease; E43 Unspecified severe protein-calorie malnutrition; G93.41 Metabolic encephalopathy; I50.32 Chronic diastolic (congestive) heart failure; N17.9 Acute kidney failure, unspecified; N25.81 Secondary hyperparathyroidism of renal origin; E87.2 Acidosis; Z68.22 Body mass index [BMI] 22.0-22.9, adult; L89.152 Pressure ulcer of sacral region, stage 2; D63.1 Anemia in chronic kidney disease; N25.0 Renal osteodystrophy; I95.9 Hypotension, unspecified; I25.10 Atherosclerotic heart disease of native coronary artery without angina pectoris; E11.22 Type 2 diabetes mellitus with diabetic chronic kidney disease; I25.2 Old myocardial infarction; Z86.73 Personal history of transient ischemic attack (TIA), and cerebral infarction without residual deficits; Z91.15 Patient's noncompliance with renal dialysis; Z20.822 Contact with and (suspected) exposure to COVID-19
CPT/HCPCS: 36415; 71045; 80048; 80053; 80069; 80076; 82947; 83735; 83880; 84443; 84484; 85014; 85018; 85025; 85610; 86317; 86705; 86850; 86900; 86901; 87040; 87340; 90935; 93005; 96372; 96374; 99285; J1630; J1644; J1650; J1940; J2150; J2270; J2997; J3486; P9016; Q5105; U0003

== ENCOUNTER 2021-01-13 21:11 | Inpatient (IN) | payer OTHER ==
[2021-01-13] MEDS ORDERED: BISACODYL 10 MG RECTAL SUPP PR PRN (21:27)
[2021-01-13] MEDS ORDERED: ONDANSETRON 4 MG/2 ML VIAL IV PRN (21:27)
[2021-01-13] MEDS ORDERED: ACETAMINOPHEN 650MG/RECT SUPP PR PRN (21:27)
[2021-01-13] MEDS ORDERED: MORPHINE 2 MG/ML SYR IV PRN (21:27)
[2021-01-13] MEDS ORDERED: SCOPOLAMINE HYDROBROMIDE PATCH TD PRN (21:27)
[2021-01-13] MEDS ORDERED: LORazepam 2 MG/ML VIAL IV PRN (21:37)
[2021-01-13] MEDS: LORazepam 2 MG/ML VIAL IV SCH (22:06)
[2021-01-14] MEDS: LORazepam 2 MG/ML VIAL IV SCH ×6 (02:32→22:32)
[2021-01-15] MEDS: LORazepam 2 MG/ML VIAL IV SCH ×6 (02:37→21:03)
[2021-01-16] MEDS: LORazepam 2 MG/ML VIAL IV SCH ×6 (01:27→21:01)
[2021-01-17] MEDS: LORazepam 2 MG/ML VIAL IV SCH ×6 (01:16→21:10)
[2021-01-18] MEDS: LORazepam 2 MG/ML VIAL IV SCH ×6 (01:14→21:45)
[2021-01-19 00:02] VITALS: BMI 20.7
[2021-01-19] MEDS: LORazepam 2 MG/ML VIAL IV SCH ×6 (01:28→21:43)
[2021-01-19 09:12] VITALS: TEMP 96.7
[2021-01-19 21:07] VITALS: O2SAT 98
[2021-01-19 21:46] VITALS: BP 91/42
[2021-01-20] MEDS: LORazepam 2 MG/ML VIAL IV SCH ×2 (02:22→05:50)
== END 2021-01-20 06:58 | disposition expired | DRG 951 ==
LOC: 2ND 21:11
PROVIDERS: ADMIT Internal Medicine Medical Oncology; ATTEND Internal Medicine Medical Oncology
DX: Z51.5 Encounter for palliative care (principal); N18.6 End stage renal disease; I13.11 Hypertensive heart and chronic kidney disease without heart failure, with stage 5 chronic kidney disease, or end stage renal disease
CPT/HCPCS: 82947; J2270